=== PATIENT | female | born 1995 | race Caucasian/White ===

== ENCOUNTER → 2019-08-21 13:03 | Outpatient (BNVA) | payer MEDICAID, SELFPAY | PROVIDERS: Family Provider Registered Nurse; PCP Registered Nurse; Visit Provider Obstetrics & Gynecology Female Pelvic Medicine and Reconstructive Surgery | DX: Z36.89 Encounter for other specified antenatal screening (principal); Z36.87 Encounter for antenatal screening for uncertain dates | CPT/HCPCS: 76817; 81000; 84144; 84702; 85025; 87491; 87591 ==

== ENCOUNTER 2019-08-23 11:30 | Outpatient (CLI) | payer MEDICAID, SELFPAY | END 2019-08-23 11:31 | disposition home or self-care (01) | LOC: LAB 11:33 | PROVIDERS: Family Provider Registered Nurse; PCP Registered Nurse; Visit Provider Obstetrics & Gynecology Female Pelvic Medicine and Reconstructive Surgery | DX: Z32.01 Encounter for pregnancy test, result positive (principal) | CPT/HCPCS: 84702 ==

== ENCOUNTER → 2019-08-27 12:13 | Outpatient (BNVA) | payer MEDICAID, SELFPAY | PROVIDERS: Family Provider Registered Nurse; PCP Registered Nurse; Visit Provider Obstetrics & Gynecology Female Pelvic Medicine and Reconstructive Surgery | DX: Z32.01 Encounter for pregnancy test, result positive (principal) | CPT/HCPCS: 84702 ==

== ENCOUNTER → 2019-08-29 08:51 | Outpatient (BNVA) | payer MEDICAID, SELFPAY | PROVIDERS: Family Provider Registered Nurse; PCP Registered Nurse; Visit Provider Obstetrics & Gynecology Female Pelvic Medicine and Reconstructive Surgery | DX: Z34.90 Encounter for supervision of normal pregnancy, unspecified, unspecified trimester (principal) | CPT/HCPCS: 76817 ==

== ENCOUNTER 2019-09-09 22:00 | Emergency (ER) | payer MEDICAID, SELFPAY ==
[2019-09-09 22:07] VITALS: BP 147/86; PULSE 94; RESP 18; TEMP 36.7; O2SAT 99; BMI 33.6
[2019-09-09 22:25] LABS: Add Urine Microscopic? NO
[2019-09-09 22:27] LABS: Basophils % 0.2 %; Eosinophils % 0.3 %; Hematocrit 38.6 % (37.0-47.0); Lymphocytes # 3.9 10^3/uL (0.8-4.8); Lymphocytes % 35.4 %; Mean Corpuscular HGB Conc 31.1 g/dL (30.0-36.0); Mean Corpuscular Hemoglobin 24.4 pg (28.0-34.0); Mean Corpuscular Volume 78.5 fL (81-99); Mean Platelet Volume 10.7 fL (7.4-10.4); Monocytes # 0.8 10^3/uL (0.2-0.9); Neutrophils # 6.2 10^3/uL (1.8-7.7); Neutrophils % 56.7 %; Nucleated Red Blood Cells % 0 %; Platelet Count 246 10^3/cmm (130-400); Red Blood Count 4.92 10^6/uL (4.1-5.3); Red Cell Distribution Width 14.3 % (12.1-15.1)
[2019-09-09 22:30] LABS: Bilirubin Urine Neg (NEGATIVE); Blood Urine Neg (Negative); Glucose Urine UA Norm (Normal); Ketones Urine Negative (Negative); Leukocyte Esterase Urine Negative (Negative); Nitrate Urine Negative (Negative); Protein Urine Neg (Negative); Specific Gravity, Urine 1.005 (1.005-1.030); Urine Appearance Clear (CLEAR); Urine Color Straw (Yellow); Urobilinogen Urine Norm (Negative); pH Urine 6.5 (5-7)
--- NOTE | 2019-09-09 22:36 | ED_ITS ---
HPI - Abdominal Pain General: Chief Complaint: Abdominal Pain Stated Complaint: abd pain Time Seen by Provider: 09/09/19 22:09 Source: patient Mode of arrival: ambulatory Limitations: no limitations History of Present Illness: HPI narrative: Patient is a 24-year-old [id number] currently female here for complaints of left upper quadrant pain. Patient tells me pain has been present for approximately 2 months and is intermittent in nature. She has not been able to find any factors that seem to bring on her discomfort. She states certain positions especially lying on her left side seems to alleviate her pain. It does not seem to be affected by eating. She does have a history of GERD and takes medications for this but states the pain does not seem to coincide with this pain. Patient tells me she had the pain even before becoming however she contacted her OB physician and because her last ultrasound on 08/28 could not entirely rule out an ectopic he recommended patient come to the ER for a repeat ultrasound. Patient tells me she did have some left lower pelvic pain 3 days ago but none since. No vaginal bleeding/discharge/odor. MD elicited complaint: abdominal pain Pertinent past history: none Onset (ago): month(s) Pain Consistency: intermittent Location: LUQ Migration to: no migration Exacerbating factors: nothing Relieving factors: other (certain positions) Associated Symptoms: Reports nausea (started a few wks ago-reports due to ); Denies change in bowel habits, change in stool character, chills, constipation, diarrhea, dysuria, fever(s), hematuria, syncope and vomiting Review of Systems Const: Denies: fever or chills Card: Denies: chest pain, palpitations, irregular heart rhythm, edema, lightheadedness, syncope, pre-syncope, shortness of breath on exertion or shortness of breath when lying down Resp: Denies: shortness of breath, productive cough, non-productive cough, pain on inspiration, change in phlegm color, coughing up blood or chest congestion GI: Reports: abdominal pain and nausea (started a few wks ago-reports due to ); Denies: vomiting, diarrhea, constipation, change in bowel habits, painful bowel movements or change in stool character : Denies: flank pain, difficulty urinating, painful urination, urinary frequency, urinary urgency, urinary hesitancy, blood in urine, genital lesion, genital itching, vaginal odor, vaginal bleeding, vaginal discharge or pelvic pain (3 days ago-none since) Musc: Denies: neck pain or back pain Skin/Breast: Denies: rash Neuro: Denies: headache, numbness in extremities, weakness in extremities or changes in sensation PFSH ED PFSH: Social History Smoking and tobacco status: never smoked Quit status (tobacco): has quit using tobacco Year quit tobacco: 01/08/2019 Alcohol intake: former Female Reproductive History: : 5 Physical Exam Const: COMMON NORMALS: no apparent distress, oriented x3, no limitations and alert NUTRITIONAL APPEARANCE: overweight HENMT: COMMON NORMALS: normocephalic and head/scalp atraumatic HEAD & SCALP: normocephalic and atraumatic Resp: COMMON NORMALS: normal respiratory effort and clear to auscultation kalpesh aterally AUSCULTATION: clear to auscultation bilaterally Cardio: COMMON NORMALS: regular rate and regular rhythm RATE: regular rate RHYTHM: regular rhythm GI: COMMON NORMALS: normal to inspection, nondistended, normoactive bowel sounds, soft to palpation, no hepatosplenomegaly and no masses PALPATION: Yes soft, Yes tender (LUQ and overlying L lower anterior ribs) and Yes no hepatosplenomegaly : COMMON NORMALS: Yes no CVA tenderness BLADDER/KIDNEY EXAM: Yes no CVA tenderness Back/Pelvis: COMMON NORMALS: no CVA tenderness, thoracic and lumbar spine normal to inspection, no thoracic nor lumbar tenderness and thoraco-lumbar ROM normal Extremity: COMMON NORMALS: normal to inspection Neuro: COMMON NORMALS: oriented x3 SENSORIUM/ORIENTATION: Yes alert Skin: COMMON NORMALS: no rashes or lesions noted GENERAL SKIN EXAM: no rashes or lesions noted Course Vital Signs: Vital signs: Vital Signs Temperature 98.0 F 09/09/19 22:07 Pulse Rate 94 09/09/19 22:07 Respiratory Rate 18 09/09/19 22:07 Blood Pressure 147/86 09/09/19 22:07 Pulse Oximetry 99 09/09/19 22:07 MDM - Abdominal Pain MDM Narrative: Medical decision making narrative: Patient's main complaint today is her right upper quadrant pain that she has had intermittently for 2 months. Her labs and ultrasound of her abdomen today are benign. Obviously CT examination is contraindicated given her . I do not feel this is warranted anyway. She apparently had been told by her OB to come to the ED for ectopic rule out. Her hCG continues to rise steadily. Her ultrasound today showing a live IUP. Recommend she follow-up with women's health as scheduled. She may follow-up with her PCP regarding the left upper quadrant pain. Return to ED precautions given. Lab Data: Labs: Lab Results 09/09/19 09/09/19 09/09/19 Range/Units 22:20 22:20 22:21 WBC 11.0 H (4.0-10.0) 10^3/ uL RBC 4.92 (4.1-5.3) 10^6/u L Hgb 12.0 (11.5-15.3) g/dL Hct 38.6 (37.0-47.0) % MCV 78.5 L (81-99) fL MCH 24.4 L (28.0-34.0) pg MCHC 31.1 (30.0-36.0) g/dL RDW 14.3 (12.1-15.1) % Plt Count 246 (130-400) 10^3/c mm MPV 10.7 H (7.4-10.4) fL Neut % (Auto) 56.7 % Lymph % (Auto) 35.4 % Upson % (Auto) 7.0 % Eos % (Auto) 0.3 % Baso % (Auto) 0.2 % Neut # (Auto) 6.2 (1.8-7.7) 10^3/u L Lymph # (Auto) 3.9 (0.8-4.8) 10^3/u L Upson # (Auto) 0.8 (0.2-0.9) 10^3/u L Eos # (Auto) 0.0 (0.0-0.8) 10^3/u L Baso # (Auto) 0.0 (0.0-0.1) 10^3/u L Nucleated RBC % (a uto) 0 % Nucleated RBCs # 0.0 /100WBC Sodium (136-145) mmol/L Potassium (3.5-5.1) mmol/L Chloride (98-107) mmol/L Carbon Dioxide (22-29) mmol/L Anion Gap (5-19) BUN (6-20) mg/dL Creatinine (0.5-0.9) mg/dL GFR Calculation (90-130) mL/min Glucose (65-115) mg/dL Calculated Osmolal ity (285-295) mOsm/k g Calcium (8.5-10.5) mg/dL Total Bilirubin (0.15-1.2) mg/dL AST (0-32) U/L ALT (0-33) U/L Alkaline Phosphata se (35-105) IU/L Total Protein (6.6-8.7) g/dL Albumin (3.5-5.2) g/dL Globulin (1.3-4.6) g/dL Lipase (13-60) U/L Ser , Christiano i-Qnt mIU/mL Urine Color Straw (Yellow) Urine Appearance Clear (CLEAR) Urine pH 6.5 (5-7) Ur Specific Gravit y 1.005 (1.005-1.030) Urine Protein Neg (Negative) Urine Glucose (UA) Norm (Normal) Urine Ketones Negative (Negative) Urine Blood Neg (Negative) Urine Nitrate Negative (Negative) Urine Bilirubin Neg (NEGATIVE) Urine Urobilinogen Norm (Negative) mg/dL Ur Leukocyte [place]serrat ase Negative (Negative) Urine HCG, Qual Positive H (Negative) 09/09/19 09/09/19 Range/Units 22:21 22:21 WBC (4.0-10.0) 10^3/ uL RBC (4.1-5.3) 10^6/u L Hgb (11.5-15.3) g/dL Hct (37.0-47.0) % MCV (81-99) fL MCH (28.0-34.0) pg MCHC (30.0-36.0) g/dL RDW (12.1-15.1) % Plt Count (130-400) 10^3/c mm MPV (7.4-10.4) fL Neut % (Auto) % Lymph % (Auto) % Upson % (Auto) % Eos % (Auto) % Baso % (Auto) % Neut # (Auto) (1.8-7.7) 10^3/u L Lymph # (Auto) (0.8-4.8) 10^3/u L Upson # (Auto) (0.2-0.9) 10^3/u L Eos # (Auto) (0.0-0.8) 10^3/u L Baso # (Auto) (0.0-0.1) 10^3/u L Nucleated RBC % (a uto) % Nucleated RBCs # /100WBC Sodium 139 (136-145) mmol/L Potassium 3.4 L (3.5-5.1) mmol/L Chloride 104 (98-107) mmol/L Carbon Dioxide 24 (22-29) mmol/L Anion Gap 14.4 (5-19) BUN 6 (6-20) mg/dL Creatinine 0.7 (0.5-0.9) mg/dL GFR Calculation 103.7 (90-130) mL/min Glucose 85 (65-115) mg/dL Calculated Osmolal ity 283 L (285-295) mOsm/k g Calcium 9.7 (8.5-10.5) mg/dL Total Bilirubin 0.2 (0.15-1.2) mg/dL AST 11 (0-32) U/L ALT 12 (0-33) U/L Alkaline Phosphata se 67 (35-105) IU/L Total Protein 6.9 (6.6-8.7) g/dL Albumin 4.5 (3.5-5.2) g/dL Globulin 2.4 (1.3-4.6) g/dL Lipase 16 (13-60) U/L Ser , [place]nt 45070.00 mIU/mL Urine Color (Yellow) Urine Appearance (CLEAR) Urine pH (5-7) Ur Specific Gravit y (1.005-1.030) Urine Protein (Negative) Urine Glucose (UA) (Normal) Urine Ketones (Negative) Urine Blood (Negative) Urine Nitrate (Negative) Urine Bilirubin (NEGATIVE) Urine Urobilinogen (Negative) mg/dL Ur Leukocyte [place]err[place] ase (Negative) Urine HCG, Qual (Negative) Imaging Data ^: US abdomen: My impression: Bárbara/US tech: no acute abnormalities noted especially in LUQ US pelvis/OB: My impression: Bárbara/US tech: single live IUP with HR noted Discharge Plan Discharge Patient Disposition: Home, Self-Care Clinical Impression: Left upper quadrant abdominal pain of unknown etiology Qualifiers: Weeks of gestation: less than 8 weeks Qualified Code(s): Z3A.01 - Less than 8 weeks gestation of Condition: Stable Prescriptions: No Action omeprazole 40 mg capsule,delayed release(DR/EC) 40 mg PO DAILY RF: 0 albuterol sulfate [ProAir HFA] 90 mcg/actuation HFA aerosol inhaler 1 inh INHALATION QID Qty: 6.7 RF: 2 prenat.vits,mary,[id number] Tablet 1 tab PO DAILY Qty: 90 RF: 3 Discharge Orders: Discharge Order (Routine); Ordered 09/09/19 Ordered By: Sadaf Mast Referrals: Clair Fisher FNP [Primary Care Provider] - Patient Instructions: Abdominal Pain (ED) Activity Restrictions/Additional Instructions: You may continue to follow-up with Women's Health as scheduled. Return to the emergency department for any worsening pain, vaginal bleeding, cramping, or any other concerns you may have. Discharge Date/Time: 09/10/19 00:01 Coding Level of Care Code ED Sewer Pipe Layer for Chg Fwd Exam Comprehensive
[2019-09-09 22:40] LABS: Alanine Aminotransferase 12 U/L (0-33); Albumin Level 4.5 g/dL (3.5-5.2); Alkaline Phosphatase 67 IU/L (35-105); Anion Gap 14.4 (5-19); Aspartate Amino Transferase 11 U/L (0-32); Blood Urea Nitrogen 6 mg/dL (6-20); Calcium 9.7 mg/dL (8.5-10.5); Carbon Dioxide 24 mmol/L (22-29); Chloride 104 mmol/L (98-107); Globulin 2.4 g/dL (1.3-4.6); Glomerular Filtration Rate 103.7 mL/min (90-130); Glucose 85 mg/dL (65-115); Lipase 16 U/L (13-60); Osmolality Calculated 283 mOsm/kg (285-295); Potassium 3.4 mmol/L (3.5-5.1); Sodium 139 mmol/L (136-145); Total Bilirubin 0.2 mg/dL (0.15-1.2); Total Protein 6.9 g/dL (6.6-8.7)
--- NOTE | 2019-09-09 22:54 | US_ITS ---
WS: [id number] ULTRASOUND ABDOMEN LIMITED CLINICAL INFORMATION: LUQ pain COMPARISON: None. FINDINGS: Spleen Splenomegaly: None. Craniocaudal length: 12.9 cm. Left kidney: Normal. Hydronephrosis: None. Size: 10.3 cm x 5.6 cm x 4.6 cm. Abdominal aorta and IVC Visualized portions are normal. Ascites: None. US/US abdomen limited 16429 IMPRESSION: Normal left upper quadrant ultrasound
--- NOTE | 2019-09-09 22:54 | US_ITS ---
WS: [id number] ULTRASOUND EARLY TECHNIQUE: Transabdominal sonography of the pelvis was performed. CLINICAL INFORMATION: L lower pelvic pain; last US could not r/o ectopic LMP: Beta hCG: Unknown. COMPARISON: August 29, 2019 FINDINGS: UTERUS AND GESTATIONAL SAC Intrauterine gestations: Estimated gestational age: 6w6d Estimated date of delivery 04/28/20 Yolk sac: 0.4 cm. Black Jack rump length (CRL): 0.9 cm. heart motion: 129 BPM. Subchorionic hemorrhage: None. OVARIES Right ovary: Normal. Left ovary: Normal. FREE FLUID None. 2. Estimated gestational age: 6w6d 3. Ovaries are normal in appearance. No evidence of ectopic .. US/US OB limited 20029 IMPRESSION: 1. Single live intrauterine with pole.
[2019-09-10 00:01] VITALS: BP 136/68; PULSE 84; RESP 16; O2SAT 100
== END 2019-09-10 00:01 | disposition home or self-care (01) ==
PROVIDERS: Emergency Provider Physician Assistant; Family Provider Registered Nurse; PCP Registered Nurse
DX: O26.891 Other specified pregnancy related conditions, first trimester (principal); R10.12 Left upper quadrant pain; Z3A.01 Less than 8 weeks gestation of pregnancy; Z87.891 Personal history of nicotine dependence
CPT/HCPCS: 12345; 36415; 76705; 76815; 80053; 81003; 81025; 83690; 84702; 85025; 99282; 99283; A9270

== ENCOUNTER → 2019-10-04 08:22 | Outpatient (BNVA) | payer MEDICAID, SELFPAY | PROVIDERS: Family Provider Registered Nurse; PCP Registered Nurse; Visit Provider Obstetrics & Gynecology | DX: O09.899 Supervision of other high risk pregnancies, unspecified trimester (principal) | CPT/HCPCS: 80053; 80307; 81000; 85027; 86592; 86762; 86803; 86850; 86900; 87340; 87806 ==

== ENCOUNTER → 2019-10-18 14:03 | Outpatient (BNVA) | payer MEDICAID, SELFPAY | PROVIDERS: Family Provider Registered Nurse; PCP Registered Nurse; Visit Provider Obstetrics & Gynecology | DX: Z34.90 Encounter for supervision of normal pregnancy, unspecified, unspecified trimester (principal) | CPT/HCPCS: 81000 ==

== ENCOUNTER → 2019-11-14 08:17 | Outpatient (BNVA) | payer MEDICAID, SELFPAY | PROVIDERS: Family Provider Registered Nurse; PCP Registered Nurse; Visit Provider Nurse Practitioner Women's Health | DX: O34.211 Maternal care for low transverse scar from previous cesarean delivery (principal); O21.9 Vomiting of pregnancy, unspecified; J45.909 Unspecified asthma, uncomplicated; Z87.891 Personal history of nicotine dependence; O99.212 Obesity complicating pregnancy, second trimester; O99.612 Diseases of the digestive system complicating pregnancy, second trimester; K21.9 Gastro-esophageal reflux disease without esophagitis; Z3A.16 16 weeks gestation of pregnancy | CPT/HCPCS: 81000 ==

== ENCOUNTER → 2019-12-03 13:08 | Outpatient (BNVA) | payer MEDICAID, SELFPAY | PROVIDERS: Family Provider Registered Nurse; PCP Registered Nurse; Visit Provider Obstetrics & Gynecology | DX: O09.892 Supervision of other high risk pregnancies, second trimester (principal); K21.9 Gastro-esophageal reflux disease without esophagitis; J45.909 Unspecified asthma, uncomplicated; O34.211 Maternal care for low transverse scar from previous cesarean delivery; O26.892 Other specified pregnancy related conditions, second trimester; R51 Headache; O99.212 Obesity complicating pregnancy, second trimester; O21.9 Vomiting of pregnancy, unspecified; Z3A.19 19 weeks gestation of pregnancy | CPT/HCPCS: 81000 ==

== ENCOUNTER → 2019-12-12 09:36 | Outpatient (BNVA) | payer MEDICAID, SELFPAY | PROVIDERS: Family Provider Registered Nurse; PCP Registered Nurse; Visit Provider Obstetrics & Gynecology | DX: Z34.92 Encounter for supervision of normal pregnancy, unspecified, second trimester (principal) | CPT/HCPCS: 76805 ==

== ENCOUNTER → 2019-12-16 10:19 | Outpatient (BNVA) | payer MEDICAID, SELFPAY | PROVIDERS: Family Provider Registered Nurse; PCP Registered Nurse; Visit Provider Obstetrics & Gynecology | DX: Z34.90 Encounter for supervision of normal pregnancy, unspecified, unspecified trimester (principal) | CPT/HCPCS: 81000 ==

== ENCOUNTER → 2020-01-10 11:08 | Outpatient (BNVA) | payer MEDICAID, SELFPAY | PROVIDERS: Family Provider Registered Nurse; PCP Registered Nurse; Visit Provider Obstetrics & Gynecology | DX: O09.892 Supervision of other high risk pregnancies, second trimester (principal) | CPT/HCPCS: 81000 ==

== ENCOUNTER → 2020-02-07 11:09 | Outpatient (BNVA) | payer MEDICAID, SELFPAY | PROVIDERS: Family Provider Registered Nurse; PCP Registered Nurse; Visit Provider Nurse Practitioner Women's Health | DX: O09.892 Supervision of other high risk pregnancies, second trimester (principal); Z3A.00 Weeks of gestation of pregnancy not specified | CPT/HCPCS: 81000; 82950; 85027 ==

== ENCOUNTER → 2020-02-13 08:40 | Outpatient (BNVA) | payer MEDICAID, SELFPAY | PROVIDERS: Family Provider Registered Nurse; PCP Registered Nurse; Visit Provider Obstetrics & Gynecology | DX: O09.892 Supervision of other high risk pregnancies, second trimester (principal); O99.210 Obesity complicating pregnancy, unspecified trimester | CPT/HCPCS: 82951; 82952 ==

== ENCOUNTER → 2020-02-21 13:03 | Outpatient (BNVA) | payer MEDICAID, SELFPAY | PROVIDERS: Family Provider Registered Nurse; PCP Registered Nurse; Visit Provider Obstetrics & Gynecology | DX: Z34.90 Encounter for supervision of normal pregnancy, unspecified, unspecified trimester (principal) | CPT/HCPCS: 81000 ==

== ENCOUNTER → 2020-03-06 13:49 | Outpatient (BNVA) | payer MEDICAID, SELFPAY | PROVIDERS: Family Provider Registered Nurse; PCP Registered Nurse; Visit Provider Obstetrics & Gynecology | DX: Z34.90 Encounter for supervision of normal pregnancy, unspecified, unspecified trimester (principal) | CPT/HCPCS: 81000 ==

== ENCOUNTER → 2020-03-20 13:03 | Outpatient (BNVA) | payer MEDICAID, SELFPAY | PROVIDERS: Family Provider Registered Nurse; PCP Registered Nurse; Visit Provider Nurse Practitioner Women's Health | DX: Z34.90 Encounter for supervision of normal pregnancy, unspecified, unspecified trimester (principal) | CPT/HCPCS: 80053; 81000 ==

== ENCOUNTER → 2020-04-03 14:22 | Outpatient (BNVA) | payer MEDICAID, SELFPAY | PROVIDERS: Family Provider Registered Nurse; PCP Registered Nurse; Visit Provider Obstetrics & Gynecology | DX: O09.893 Supervision of other high risk pregnancies, third trimester (principal); Z3A.00 Weeks of gestation of pregnancy not specified | CPT/HCPCS: 81000; 87081; 87210 ==

== ENCOUNTER 2020-04-06 07:00 | Inpatient (IN) | payer MEDICAID, SELFPAY ==
[2020-04-06] VITALS (130 sets, daily range): BP systolic 0–157; BP diastolic 0–108; PULSE 74–181; RESP 16–20; TEMP 36.2–37.5; O2SAT 88–99; BMI 35.5
[2020-04-06 08:22] LABS: Basophils % 0.1 %; Eosinophils % 0.3 %; Hematocrit 35.3 % (37.0-47.0); Hemoglobin 11.4 g/dL (11.5-15.3); Lymphocytes # 2.4 10^3/uL (0.8-4.8); Lymphocytes % 21.6 %; Mean Corpuscular HGB Conc 32.3 g/dL (30.0-36.0); Mean Corpuscular Hemoglobin 26.1 pg (28.0-34.0); Mean Platelet Volume 12.6 fL (7.4-10.4); Monocytes # 0.8 10^3/uL (0.2-0.9); Monocytes % 6.9 %; Neutrophils # 7.76 10^3/uL (1.8-7.7); Neutrophils % 70.5 %; Nucleated Red Blood Cells % 0 %; Platelet Count 191 10^3/cmm (130-400); Red Blood Count 4.36 10^6/uL (4.1-5.3)
[2020-04-06 08:55] LABS: Nitrazine Paper, PH Positive
[2020-04-06] MEDS: dextrose 5%-lactated ringers 1,000 ML 125 ML IV ×2 (10:30→18:21)
[2020-04-06] MEDS: oxytocin 30 UNIT/500 ML BAG IV (10:30)
[2020-04-06] MEDS: lactated ringers 1,000 ML 999 ML IV ×2 (16:28→18:20)
--- NOTE | 2020-04-06 17:54 | ANES.PROC ---
Anesthesia Procedures Procedure/Date: 04/06/20 Epidural: Time Out Performed: Yes Consents Signed: Procedure Consent Consent: requested by attending/covering physician and risks and benefits reviewed Lumbar Level: L3-L4 Epidural position: sitting Epidural procedure: sterile prep of area, 1% lidocaine to numb the area (3 cc), 18 g needle (L3-l4 interspace ), negative for paresthesia passed, neg for paresthesia, test dose given (3 cc ), placed PCEA, no systemic response, sterile dressing applied and 0.2% Ropiavacaine @ mls/hr (13 mls/hr ) Additional Comments: to bedside at 17:30 epidural x 1 stick without difficulty. JENNIFER at 9 cm catheter threaded, test dose given. Patient states getting more comfortable on left side at this time. will reposition. 10 cc 2 % lido given and 100 mcg fentanyl. see OBYX system.
--- NOTE | 2020-04-06 18:49 | PC.NURSE ---
PT STATES NO PAIN JUST PRESSURE ON HER TAILBONE.
--- NOTE | 2020-04-06 18:57 | PC.NURSE ---
EPIDURAL 1648 TIME OUT DONE AND THEN DR. VALDERRAMA ATTEMPTED NUMEROUS TIMES TO GET EPIDURAL AND AFTER 30 MINUTES THIS GENERAL FOUNDRY WORKER CALLED MELECIO SCOTT CRNA TO COME AND ASSIST IF POSSIBLE AND SHE SAID TO SEND HER TO TRADE PLACED WITH HER AND SHE WOULD COME UP. 1730 MELECIO SCOTT CRNA HERE AND TIME OUT DONE AND PT STILL SITTING OF BED. 173 1ST STICK 174 TEST DOSE 1748 PUMP STARTED.
--- NOTE | 2020-04-06 21:08 | PC.NURSE ---
MD notified of patient having moderate fundal rubs. MD orders for Methergine to be given.
--- NOTE | 2020-04-06 21:15 | PC.NURSE ---
THIS NURSE TOOK OVER ON PT'S IT NEEDED LEVEL 2 CARE IN NURSERY; CARE WAS PASSED TO NAVDEEP SOTO AT 2102.
[2020-04-06] MEDS: miSOPROStol 200 mcg Tablet 800 MCG PR (21:16)
--- NOTE | 2020-04-06 21:16 | PC.NURSE ---
MD updated on patient blood pressures. MD orders not to give the Methergine and to give 800mcg of Cytotec Rectally instead.
--- NOTE | 2020-04-06 21:19 | P.PCNOB_ITS ---
Delivery Note: Date of delivery: April 06, 2020 Pre-delivery diagnoses: term labor. previous delivery. Post-delivery diagnoses: The same as above Procedure: spontaneous vaginal delivery Op report anesthesia: Epidural Delivering Physician: Andrews Goel M.D. Estimated blood loss (mL): 500 Findings: 25 year old, 5, Para 1-0-3-1, with a LMP of 09/09/2019 and an EDC of 04/28/2020, at 36+5 weeks. Delivery: The patient was noted to be complete and pushing, so was placed in the dorsal lithotomy position, prepped and draped in the usual sterile fashion for a vaginal delivery. Pt. Noted to have epidural anesthesia. The vertex was delivered in NOHEMY position. After delivery of the head we were unable to deliver the anterior shoulder by applying moderate downward motion. The diagnosis of shoulder dystocia was made. The patient and her family as well as the attending staff were informed. The nurses in the room were instructed to proceed with the Judy maneuver. The nurse was instructed to proceed with supra-pubic pressure; again delivery of the anterior shoulder was successful with McRobert maneuver over intact perineum in 20 seconds the patient was asked to push after anterior shoulder delivered, over an intact perineum. A nuchal cord was checked and one noted, and delivered through around head as necessary. The anterior shoulder delivered and the posterior shoulder followed. The remainder of the was easily delivered and the oropharynx and nasopharynx was bulb suctioned. The infant was noted to have spontaneous cry and spontaneous movement of all four extremities. At 2044 the patient delivered a viable at 36+6 week female weighing 3374 g with scores of 6 and 8 at one and five minutes, respectively. The cord was clamped x 2 and cut and noted to have 2 arteries and one vein. The infant was passed to the warmer where nursing personnel were in attendance. The placenta delivered intact spontaneously and the uterus was explored. 20 units of Pitocin was placed in the IV bag to firm the uterus. Examination of the cervix and vaginal vault did not reveal any lacerations. A vaginal pack was then placed. Examination of the perineum showed a second degree laceration noted. The laceration was repaired with 2-0 Vicryl in the normal fashion in a running non locking fashion to reapproximate the laceration in layers. The vaginal pack was then removed. The patient tolerated this procedure well, and recovered in L&D with her was transfer to nursery for observation. All sponge and needle counts were correct. Coding Level of Care Code Acute Electrician Crane Maintenance for Chg Dayanara
--- NOTE | 2020-04-06 21:38 | PC.NURSE ---
Dr. Goel at bedside to assess bleeding.
[2020-04-07] VITALS (18 sets, daily range): BP systolic 99–155; BP diastolic 58–85; PULSE 71–102; RESP 17–18; TEMP 36.6–36.9; O2SAT 98
[2020-04-07] MEDS: alum-mag-hydroxide-sime 30 mL UDC PO ×2 (01:35→10:05)
[2020-04-07] MEDS: HYDROcodone-acetaminophen 5-325 mg Tablet PO ×3 (01:35→17:13)
--- NOTE | 2020-04-07 03:12 | PC.NURSE ---
PT STARTED PUSHING AT 2004. AT 2043:45 BABY'S HEAD WAS OUT; BUT ANTERIOR SHOULDER WAS NOT DELIVERED. DR JALLOH ASKED FOR SUPRAPUBIC PRESSURE; IT WAS STARTED BY THIS RN AND AND TAKEN OVER BY NAVDEEP SOTO. BABY DELIVERED AT 2044:15 APPROXIMATELY ON SECONDS. CORD WAS CLAMPED AND CUT BY DR JALLOH AND BABY WAS TAKEN TO WARMER BEFORE 1 MINUTE OF LIFE OLD.
[2020-04-07] MEDS: prenatal vitamin Capsule 1 CAP PO (07:52)
[2020-04-07] MEDS: ibuprofen 800 mg tablet PO ×3 (07:52→20:37)
[2020-04-07] MEDS: docusate sodium 100 mg Capsule PO ×2 (07:53→17:09)
[2020-04-07 10:10] LABS: Hematocrit 31.7 % (37.0-47.0); Hemoglobin 9.9 g/dL (11.5-15.3); Mean Corpuscular HGB Conc 31.2 g/dL (30.0-36.0); Mean Corpuscular Hemoglobin 25.7 pg (28.0-34.0); Mean Corpuscular Volume 82.3 fL (81-99); Mean Platelet Volume 12.3 fL (7.4-10.4); Platelet Count 192 10^3/cmm (130-400); Red Blood Count 3.85 10^6/uL (4.1-5.3); Red Cell Distribution Width 13.2 % (12.1-15.1); White Blood Count 12.9 10^3/uL (4.0-10.0)
--- NOTE | 2020-04-07 12:21 | ANE.PACU2 ---
Inpatient post-anesthesia follow up: Airway intact: Yes Vital signs: Temperature 98.3 F Pulse Rate 86 Respiratory Rate 17 Blood Pressure 130/82 Pulse Oximetry 97 Oxygen Delivery Me thod Room Air Oxygen Flow Rate Fraction of Inspir ed Oxygen Hydration adequate: Yes Nausea and vomiting: No Pain level: 3 Mental status: Baseline Additional Comments: Up and walking, no residual numbnes and weakness in lower extremities (L leg sensation returned at 0400), no signs of infection at neuraxial site or attempt sites, moderate bruising present, tender to palpation, no headaches, urinating without lopez
[2020-04-07 17:20] LABS: Coronavirus Lab Test PTC Negative
--- NOTE | 2020-04-07 19:56 | PM.OBGYDC ---
Discharge Providers FLOOR HELPER Date of Admission: 04/06/20 07:00 Date of Discharge: 04/23/20 Attending Provider at Admission: Andrews Goel MD Attending Provider at Discharge: Andrews Goel MD Primary Care Provider: RAYMOND Xie Diagnoses at Discharge Discharge Diagnosis (1) Vaginal after , delivered, current hospitalization: Status: Acute Reason for Visit Reason for Visit: SROM AT HOME Hospital Course Hospital Course 25 year old, 5, Para 1-0-3-1, with a LMP of 09/09/2019 and an EDC of 04/28/2020 based on 6 week ultrasound, at 36 5/7 weeks. The patient came to labor and delivery with complaint of premature rupture of membranes. She was admitted to labor and delivery, and progressed to have a vaginal after section complicated by shoulder dystocia and one nuchal cord. She delivered a viable at 36+6 week female infant weighing 3374 g with scores of 6 and 8. She is afebrile hemodynamically stable. Tolerating diet well. Ambulating without difficulty. Information Peripartum Data: Infant Delivery Method: Physical Exam Narrative: EXAM NARRATIVE: GA; alert and oriented x 3 HEENT: normal Breasts: engorged Nipples - skin intact Lungs; clear to auscultation Heart: regular rhythm, no murmurs. Abd: Appropriately tender. BS+. Uterine fundus below umbilicus. No Fundal Tenderness. Perineum: normal lochia. Extremities: no edema, no cyanosis, no tenderness. Urinary Catheter Management^: Verdin: Cath Placed During This Visit: yes, but has since been removed by the nurse Reason for Continuing Indwelling Catheter: Decision to DC Catheter Urinary Catheter Date of Insertion: 04/06/20 Urinary Catheter Time of Insertion: 18:00 Date Urinary Catheter Removed: 04/06/20 Time Urinary Catheter Discontinued: 19:58 Discharge Data Data Completed and Pending: Labs from last 24 hours 04/07/20 04/06/20 09:45 07:40 WBC 12.9 H RBC 3.85 L Hgb 9.9 L Hct 31.7 L MCV 82.3 MCH 25.7 L MCHC 31.2 RDW 13.2 Plt Count 192 MPV 12.3 H Nasal/Oral COVID-1 9 PCR Negative Vitals: Last Vital Signs Temp 97.9 F 04/07/20 14:51 Pulse 92 04/07/20 15:30 Resp 18 04/07/20 15:30 BP 136/85 04/07/20 15:30 Pulse Ox 97 04/06/20 21:42 Discharge Plan Discharge Patient Disposition: Home Condition: Stable Prescriptions: New ibuprofen 800 mg tablet 800 mg PO TID PRN (Reason: pain) Qty: 60 RF: 0 acetaminophen 325 mg capsule 325 mg PO Q4H PRN (Reason: fever or pain) Qty: 60 RF: 0 Continued ferrous sulfate 325 mg (65 mg iron) tablet 325 mg PO BID RF: 0 albuterol sulfate [ProAir HFA] 90 mcg/actuation HFA aerosol inhaler 1 inh INHALATION QID PRN (Reason: Acid Reflux) RF: 0 prenat.vits,mary,[id number] Tablet 1 tab PO DAILY Qty: 90 RF: 3 omeprazole 20 mg capsule,delayed release(DR/EC) 20 mg PO DAILY RF: 0 No Action medroxyprogesterone [Depo-Provera] 150 mg/mL suspension 150 mg IM .every 3 months Qty: 1 RF: 0 Discharge Orders: Discharge Order (Routine); Ordered 04/07/20 Ordered By: Andrews Goel Referrals: Andrews Goel MD [Physician] - 2 weeks Discharge Diet: Regular Discharge Activity: Increase activity as tolerated Patient Instructions: Choosing Between Vaginal After or Repeat (GEN), Vaginal Delivery (DC), Vaginal Delivery (GEN) Activity Restrictions/Additional Instructions: 1. Please call [facility] clinic on next working day to make your post-operative appointment in 2 weeks. 2. Please stay home until you come back to the clinic on first post-operative check up. 3. Please follow instructions on your medications CAREFULLY. 4. If you have abdominal incision, do not cover it unless dressing is necessary because of drainage. OK to shower, but avoid bath. Leave steri-strips until they fall off. If they are still on one week after surgery, you may remove them. 5. If you had vaginal surgery, your doctor may instruct you to take SITZ bath. 6. Yellow, blood tinged odorous vaginal discharge is usually normal after hysterectomy or vaginal surgeries. 7. No sexual intercourse, tampons, or douches until you are completely released from the post-operative care. 8. Avoid constipation by eating right and maybe using some Metamucil or Milk of Magnesia. 9. All prescription refills are given during the working hours. Please do no wait till it runs out. Call the clinic at [phone] before your medication runs out. The clinic will get in touch with your doctor to prescribe medications if necessary. 10. Please remain within 40 mile radius from our hospital because emergencies do happen now and then during the post-operative period. 11. If you have stairs at home, take one step at a time slowly and minimize the number of trips. It helps to stay in one floor for the next few days. No lifting except what you can lift by one hand until you are released from the post-operative care. 12. Driving is discouraged until you are well healed. It may be 3-4 weeks before you feel strong enough to drive. You should be able to turn and look through the rear window without pain and you should be able to push the brake pedal very hard without pain before you drive. No fast rules, but SAFETY should be your primary concern. DO NOT drive if you are on sedating medications such as narcotics. 13. Call the clinic (during working hours) to make urgent appointment or go to the Emergency room, if any of the following occurs: i. Vaginal bleeding becomes heavy, more than a period. ii. Incision becomes red and sore, or drains pus. iii. Your temperature is over 100.4 or you have chill. iv. IV site becomes red and swollen (a little ``knot?? is usually OK) v. Persistent nausea and vomiting vi. Persistent constipation or diarrhea vii. Rash or allergic reaction to medications. Discharge Attestations FLOOR HELPER Time Spent in Discharge Care*: greater than 30 min Specific Discharge Activities: Specific discharge activities: educating patient and educating and/or supporting family/caregiver Coding Level of Care Code Acute Mandate Retail Service Merchandiser for Andreag Fwd Diagnoses Vaginal after , delivered, current hospitalization O34.219
== END 2020-04-07 20:42 | disposition home or self-care (01) | DRG 805 ==
PROVIDERS: Obstetrics & Gynecology; Admitting Provider Obstetrics & Gynecology; Family Provider Registered Nurse; PCP Registered Nurse; Visit Provider Obstetrics & Gynecology
DX: O42.013 Preterm premature rupture of membranes, onset of labor within 24 hours of rupture, third trimester (principal); O60.14X0 Preterm labor third trimester with preterm delivery third trimester, not applicable or unspecified; Z37.0 Single live birth; Z3A.36 36 weeks gestation of pregnancy; O65.5 Obstructed labor due to abnormality of maternal pelvic organs; O34.211 Maternal care for low transverse scar from previous cesarean delivery; N85.8 Other specified noninflammatory disorders of uterus; O69.81X0 Labor and delivery complicated by cord around neck, without compression, not applicable or unspecified; O62.3 Precipitate labor; O66.0 Obstructed labor due to shoulder dystocia
CPT/HCPCS: 12345; 36415; 51702; 59025; 83986; 85025; 85027; 87635; 96374; 99211; J2795; J3010

== ENCOUNTER 2020-04-13 19:18 | Emergency (ER) | payer MEDICAID, SELFPAY ==
[2020-04-13 19:21] VITALS: BP 149/96; PULSE 74; RESP 18; TEMP 36.5; O2SAT 98; BMI 34.4
[2020-04-13 21:12] LABS: Add Urine Microscopic? YES; Bilirubin Urine Neg (Negative); Blood Urine 3+ (Negative); Glucose Urine UA Norm (Normal); Ketones Urine Negative (Negative); Leukocyte Esterase Urine 1+ (Negative); Nitrate Urine Negative (Negative); Protein Urine Neg (Negative); Specific Gravity, Urine 1.005 (1.005-1.030); Urine Appearance Clear (CLEAR); Urine Color Straw (Yellow); Urobilinogen Urine Norm (Negative); pH Urine 6.5 (5-7)
--- NOTE | 2020-04-13 21:13 | USR_ITS ---
PROCEDURE INFORMATION: Exam: US Duplex Lower Extremity Veins, Bilateral Exam date and time: 04/13/2020 9:42 PM Age: 25 years old Clinical indication: Other: Chest pain post of child; Patient HX: Gave 1 week ago TECHNIQUE: Imaging protocol: Real-time duplex ultrasound of the extremities with 2-D frankel scale, color Doppler flow and spectral waveform analysis with image documentation. Complete exam focused on the bilateral lower extremity veins. COMPARISON: No relevant prior studies available. FINDINGS: Right deep veins: Unremarkable. The common femoral, femoral, proximal profunda femoral and popliteal veins are patent without thrombus. Normal Doppler waveforms. Normal compressibility and/or augmentation response. Right superficial veins: Saphenofemoral junction is patent without thrombus. Left deep veins: Unremarkable. The common femoral, femoral, proximal profunda femoral and popliteal veins are patent without thrombus. Normal Doppler waveforms. Normal compressibility and/or augmentation response. Left superficial veins: Saphenofemoral junction is patent without thrombus. Soft tissues: Unremarkable. US/CV venous duplex [facility] [id number] IMPRESSION: Negative for deep venous thrombosis.
--- NOTE | 2020-04-13 21:15 | USR_ITS ---
PROCEDURE INFORMATION: Exam: US Abdomen, Limited; Right Upper Quadrant Exam date and time: 04/13/2020 9:42 PM Age: 25 years old Clinical indication: Abdominal pain; Acute; Patient HX: of child 1 week ago. Today pain in abd and chest TECHNIQUE: Imaging protocol: US abdomen. Real time ultrasound with image documentation. Limited exam focused on the right upper quadrant. COMPARISON: US abdomen limited [id number] 09/09/2019 11:25 PM FINDINGS: Liver: Normal. No masses. Gallbladder: Normal. No gallstones. There is no gallbladder wall thickening. Common bile duct: Normal. No stones. No dilation. Pancreas: Visualized pancreas is unremarkable. Right kidney: Normal. No mass. No hydronephrosis. US/US gall bladder [id number] IMPRESSION: Negative for cholelithiasis or cholecystitis
[2020-04-13 21:16] VITALS: BP 158/89; PULSE 72; RESP 16; O2SAT 97
--- NOTE | 2020-04-13 21:16 | XR_ITS ---
WS: [id number] XR chest 1V portable [id number] REASON FOR EXAM: Chest pain FINDINGS: The chest is unchanged compared to 06/21/2015. The heart and mediastinum are within normal limits. No active pulmonary parenchymal or pleural disease. Bony thorax is intact. XR/XR chest 1V portable [id number] IMPRESSION: No acute chest abnormality.
--- NOTE | 2020-04-13 21:17 | ED_ITS ---
HPI - Abdominal Pain General: Chief Complaint: Abdominal Pain Stated Complaint: delievered 04/06, high bp, lower abd pain Time Seen by Provider: 04/13/20 21:07 Source: patient Mode of arrival: ambulatory Limitations: no limitations History of Present Illness: HPI narrative: Barbie is a nice 25-year-old female who comes in complaining of elevated blood pressure, abdominal pain, diarrhea and dysuria. Patient states she was at home when she got the symptoms of epigastric pain and lower abdominal pain. Patient currently denies any vaginal discharge or bleeding but did recently have a vaginal delivery. Patient was concerned about the abdominal pain and called her natural resource economist who told her to come to the hospital to get evaluated. Here the patient has no discomfort. Patient states overall she is feeling better but was concerned about her elevated blood pressure so she came to the hospital. She unaware of anything makes her symptoms better or worse. She denies any other complaints or concerns. Associated Symptoms: Reports diarrhea and nausea; Denies chills, coffee ground emesis, constipation, GI cramping, dysuria, fever(s), heartburn, hematochezia, hematuria, hematemesis, melena, syncope and vomiting Review of Systems Const: Denies: fever(s), chills, body aches, fatigue, malaise or diaphoresis Eyes: Denies: change in vision, blurry vision, photophobia, eye discomfort, eye discharge, eye redness or yellow eyes ENMT: Denies: throat pain, odynophagia, hoarseness, swelling of lips/tongue, ear or mastoid pain, ear discharge, change in hearing or nasal discharge Card: Denies: chest pain, palpitations, irregular heart rhythm, edema, lightheadedness, syncope, pre-syncope, dyspnea on exertion or orthopnea Resp: Denies: dyspnea, productive cough, non-productive cough, wheezing, hemoptysis or chest congestion GI: Reports: abdominal pain, nausea and diarrhea; Denies: vomiting, hematemesis, coffee ground emesis, heartburn, constipation, GI cramping, hematochezia or melena : Denies: flank pain, dysuria, urinary frequency, urinary urgency or hematuria Musc: Denies: neck pain, back pain, extremity pain, extremity swelling, joint pain, joint swelling, joint redness, joint warmth or joint stiffness Skin/Breast: Denies: rash, pruritus, erythema, skin pain or skin tenderness Neuro: Denies: headache(s), numbness in extremities, weakness in extremities, sensory changes, lack of coordination, difficulty walking, dizziness, vertigo, confusion, Slurred speech present or seizure-like activity Jose/Lymph: Denies: easy bruising, easy bleeding, petechiae, purpura or enlarged lymph nodes All/Imm: Denies: urticaria, throat swelling, tongue swelling, facial swelling or acute wheezing PFSH ED PFSH: Medical History (Updated 04/13/20 @ 23:11 by Alem Weeks) Asthma GERD (gastroesophageal reflux disease) Pelvic pain Surgical History History of section, low transverse (11/20/18) PLTCS. Dx: Nonreassuring FHT. Performed by Dr. Bustillo at [facility] [place]. History of tonsillectomy and adenoidectomy (~2013) Family History Father Hypertension Diabetes Grandmother Diabetes paternal Social History Smoking and tobacco status: former smoker Quit status (tobacco): has quit using tobacco Year quit tobacco: 11/2018 Former quit date comment: Started age 13. Most smoked 1 PPD. Alcohol intake: former Physical Exam Const: COMMON NORMALS: no acute distress, patient oriented x3, no limitations and alert GENERAL APPEARANCE: cooperative HENMT: COMMON NORMALS: normocephalic, atraumatic, external ears normal, EAC's normal and Normal external nose present HEAD & SCALP: normal to inspection, normocephalic and atraumatic FACE & SINUS: normal facial exam and face symmetric NOSE: Normal external nose present and Normal nares present EXTERNAL EAR: Yes external ears normal EXTERNAL AUDITORY CANAL: EAC's normal MOUTH: Normal oral and palatal mucosa present, lip normal and tongue normal Eye: COMMON NORMALS: Equal, round and reactive pupils present and conjunctivae normal GENERAL EYE: appearance normal, both eyes and all related structures ALIGNMENT: Yes alignment normal PERIORBITAL: periorbital findings normal EYELID: eyelids normal CONJUNCTIVA: Yes conjunctivae normal SCLERA: sclerae normal PUPIL: Yes Equal, round and reactive pupils present Neck/C-Spine: COMMON NORMALS: full ROM, no lymphadenopathy, supple, no meningeal signs and no JVD GENERAL: Yes normal visual inspection and Yes trachea midline Chest: COMMONS NORMALS: normal inspection of the chest and normal palpation of entire chest wall Resp: COMMON NORMALS: normal respiratory effort, No retractions, No use of accessory muscles and clear to auscultation bilaterally EFFORT & INSPECTION: Yes able to speak in complete sentences and Yes symmetric chest movement AUSCULTATION: clear to auscultation bilaterally, no crackles, no rales, no rhonchi and no wheezes Cardio: COMMON NORMALS: no JVD, regular rate, regular rhythm, S1 normal heart sound present and S2 normal heart sound present RATE: regular rate RHYTHM: regular rhythm HEART SOUNDS: S1 normal heart sound present, S2 normal heart sound present, no click, no gallops, no murmurs and no rubs GI: COMMON NORMALS: Soft to palpation and No hepatosplenomegaly present PALPATION: Yes Soft to palpation, No Tenderness to palpation present (GI), No Guarding due to palpation present (GI), No Rigid due to palpation, Yes No hepatosplenomegaly present, No Hernia present, No Palpable mass present and No Pulsatile mass present : COMMON NORMALS: Yes no CVA tenderness BLADDER/KIDNEY EXAM: Yes no CVA tenderness EXTERNAL FEMALE EXAM: No Hernia present Back/Pelvis: COMMON NORMALS: no CVA tenderness, thoracic and lumbar spine normal to inspection, no thoracic nor lumbar tenderness and thoraco-lumbar ROM normal Extremity: COMMON NORMALS: normal to inspection, full ROM, capillary refill normal, no joint enlargement, no clubbing, cyanosis or edema and no calf tenderness Neuro: COMMON NORMALS: patient oriented x3, CN's II-XII intact bilaterally, moves all extremities, no focal motor deficits and no sensory deficits noted SENSORIUM/ORIENTATION: Yes alert MENINGEAL SIGNS: Yes no meningeal signs SPEECH: speech normal Psych: COMMON NORMALS: mental status grossly normal, Normal thought process present, cooperative, normal affect, speech normal and activity/motor behavior normal SPEECH: Yes normal speech THOUGHT PROCESS: Normal thought process present Skin: COMMON NORMALS: no rashes or lesions noted, turgor normal, no jaundice, no petechiae and no mottling GENERAL SKIN EXAM: no rashes or lesions noted and turgor normal Course ED course: 2119 - Pt. is PERC rule negative. Vital Signs: Vital signs: Vital Signs Temperature 97.7 F 04/13/20 19:21 Pulse Rate 78 04/13/20 23:25 Respiratory Rate 16 04/13/20 23:25 Blood Pressure 139/83 04/13/20 23:25 Pulse Oximetry 97 04/13/20 23:25 MDM - Abdominal Pain MDM Narrative: Medical decision making narrative: Barbie is a very nice 25-year-old female who recently delivered a baby and had an uneventful . She had no problems with preeclampsia or toxemia during her or delivery. Tonight she was at home when she developed epigastric discomfort that radiated down to her lower abdomen and slightly up into her chest. She had some diarrhea that was nonbloody. Her vaginal bleeding has stopped since delivery but she has had some dysuria. The patient did not have an indication for a pelvic exam at this time without vaginal discharge or bleeding. Is possible that her symptoms are just GI related and have now subsided because the patient is feeling much better. Patient's blood pressure was slightly elevated but at this time with no pretibial edema, no protein in her urine and a blood pressure that is only in the 140s systolic I do not believe she has preeclampsia or cardiomyopathy. I reviewed the case in its entirety with Dr. Goel who agrees the patient can just be treated for UTI go home. He believes the patient likely just had a ga strointestinal illness that caused her blood pressure to elevate. He agreed to see the patient in his office this week for recheck. I reviewed all this with the patient and she is in agreement. She is feeling much better would like to go home. Patient had no true chest pain or shortness of breath. Ultrasound of legs were negative and she is PERC rule negative although with her recent I did want to add on the ultrasound just to be on the safe side. I did travel counselor the patient about developing appendicitis but as her pain is resolved I think it is unlikely to be this. Nonetheless I did warn her and advised her to return if her symptoms return or she has any new symptoms. Differential Diagnosis: Differential diagnosis abdominal pain: Likely abdominal pain, acute appendicitis, calculus of kidney, constipation, diverticulitis, gastroenteritis, pancreatitis and small bowel obstruction Lab Data: Attestation: I reviewed the patient's lab results. Labs: Lab Results 04/13/20 04/13/20 04/13/20 Range/Units 20:51 21:37 21:37 WBC 13.1 H (4.0-10.0) 10^3/ uL RBC 4.11 (4.1-5.3) 10^6/u L Hgb 10.6 L (11.5-15.3) g/dL Hct 34.3 L (37.0-47.0) % MCV 83.5 (81-99) fL MCH 25.8 L (28.0-34.0) pg MCHC 30.9 (30.0-36.0) g/dL RDW 13.6 (12.1-15.1) % Plt Count 271 (130-400) 10^3/c mm MPV 11.4 H (7.4-10.4) fL Neut % (Auto) 74.2 % Lymph % (Auto) 20.5 % [place] % (Auto) 4.1 % Eos % (Auto) 0.5 % Baso % (Auto) 0.2 % Neut # (Auto) 9.70 H (1.8-7.7) 10^3/u L Lymph # (Auto) 2.7 (0.8-4.8) 10^3/u L [place] # (Auto) 0.5 (0.2-0.9) 10^3/u L Eos # (Auto) 0.1 (0.0-0.8) 10^3/u L Baso # (Auto) 0.0 (0.0-0.1) 10^3/u L Nucleated RBC % (a uto) 0 % Nucleated RBCs # 0.0 /100WBC Sodium 142 (136-145) mmol/L Potassium 4.2 (3.5-5.1) mmol/L Chloride 106 (98-107) mmol/L Carbon Dioxide 23 (22-29) mmol/L Anion Gap 17.2 (5-19) BUN 11 (6-20) mg/dL Creatinine 0.7 (0.5-0.9) mg/dL GFR Calculation 102.8 (90-130) mL/min Glucose 97 (65-115) mg/dL Calculated Osmolal ity 293 (285-295) mOsm/k g Calcium 9.1 (8.5-10.5) mg/dL Total Bilirubin 0.2 (0.15-1.2) mg/dL AST 11 (0-32) U/L ALT 17 (0-33) U/L Alkaline Phosphata se 114 H (35-105) IU/L Troponin T Baselin e (0-10) ng/L Total Protein 6.1 L (6.6-8.7) g/dL Albumin 3.8 (3.5-5.2) g/dL Globulin 2.3 (1.3-4.6) g/dL Lipase 26 (13-60) U/L Urine Color Straw (Yellow) Urine Appearance Clear (CLEAR) Urine pH 6.5 (5-7) Ur Specific Gravit y 1.005 (1.005-1.030) Urine Protein Neg (Negative) Urine Glucose (UA) Norm (Normal) Urine Ketones Negative (Negative) Urine Blood 3+ H (Negative) Urine Nitrate Negative (Negative) Urine Bilirubin Neg (Negative) Urine Urobilinogen Norm (Negative) mg/dL Ur Leukocyte [place] ase 1+ H (Negative) Urine RBC 15-25 H (0-2) /hpf Urine WBC 10-15 H (0-5) /hpf Ur Squamous Epith Cells 0-4 H (0-5) /hpf Amorphous Sediment Not Reportable Urine Bacteria 2+ H (NONE) /hpf 11/23/20 Range/Units 21:37 WBC (4.0-10.0) 10^3/ uL RBC (4.1-5.3) 10^6/u L Hgb (11.5-15.3) g/dL Hct (37.0-47.0) % MCV (81-99) fL MCH (28.0-34.0) pg MCHC (30.0-36.0) g/dL RDW (12.1-15.1) % Plt Count (130-400) 10^3/c mm MPV (7.4-10.4) fL Neut % (Auto) % Lymph % (Auto) % [place] % (Auto) % Eos % (Auto) % Baso % (Auto) % Neut # (Auto) (1.8-7.7) 10^3/u L Lymph # (Auto) (0.8-4.8) 10^3/u L [place] # (Auto) (0.2-0.9) 10^3/u L Eos # (Auto) (0.0-0.8) 10^3/u L Baso # (Auto) (0.0-0.1) 10^3/u L Nucleated RBC % (a uto) % Nucleated RBCs # /100WBC Sodium (136-145) mmol/L Potassium (3.5-5.1) mmol/L Chloride (98-107) mmol/L Carbon Dioxide (22-29) mmol/L Anion Gap (5-19) BUN (6-20) mg/dL Creatinine (0.5-0.9) mg/dL GFR Calculation (90-130) mL/min Glucose (65-115) mg/dL Calculated Osmolal ity (285-295) mOsm/k g Calcium (8.5-10.5) mg/dL Total Bilirubin (0.15-1.2) mg/dL AST (0-32) U/L ALT (0-33) U/L Alkaline Phosphata se (35-105) IU/L Troponin T Baselin e 6 (0-10) ng/L Total Protein (6.6-8.7) g/dL Albumin (3.5-5.2) g/dL Globulin (1.3-4.6) g/dL Lipase (13-60) U/L Urine Color (Yellow) Urine Appearance (CLEAR) Urine pH (5-7) Ur Specific Gravit y (1.005-1.030) Urine Protein (Negative) Urine Glucose (UA) (Normal) Urine Ketones (Negative) Urine Blood (Negative) Urine Nitrate (Negative) Urine Bilirubin (Negative) Urine Urobilinogen (Negative) mg/dL Ur Leukocyte [place] ase (Negative) Urine RBC (0-2) /hpf Urine WBC (0-5) /hpf Ur Squamous Epith Cells (0-5) /hpf Amorphous Sediment Urine Bacteria (NONE) /hpf Imaging Data ^: CXR: Attestation: I personally reviewed and interpreted this imaging study as follows: My impression: No acute cardiopulmonary findings. US Vascular: My impression: Ultrasound venous duplex bilateral lower extremities -negative for DVT US Gallbladder: My impression: Tech interpretation -normal wall thickness. No gallstones. No pericholecystic fluid. Normal common bile duct. No acute findings. Discharge Plan Discharge Patient Disposition: Home Clinical Impression: Abdominal pain Qualifiers: Abdominal location: upper abdomen, unspecified Qualified Code(s): R10.10 - Upper abdominal pain, unspecified Diarrhea Qualifiers: Diarrhea type: unspecified type Qualified Code(s): R19.7 - Diarrhea, unspecifi ed UTI (urinary tract infection) Qualifiers: Urinary tract infection type: acute cystitis Hematuria presence: without hematuria Qualified Code(s): N30.00 - Acute cystitis without hematuria Condition: Stable Prescriptions: New Macrobid 100 mg capsule 100 mg PO BID 7 Days Qty: 14 RF: 0 No Action ferrous sulfate 325 mg (65 mg iron) tablet 325 mg PO BID RF: 0 albuterol sulfate [ProAir HFA] 90 mcg/actuation HFA aerosol inhaler 1 inh INHALATION QID PRN (Reason: Acid Reflux) RF: 0 prenat.vits,mary,jcc-obat-wplml Tablet 1 tab PO DAILY Qty: 90 RF: 3 omeprazole 20 mg capsule,delayed release(DR/EC) 20 mg PO DAILY RF: 0 ibuprofen 800 mg tablet 800 mg PO TID PRN (Reason: pain) Qty: 60 RF: 0 acetaminophen 325 mg capsule 325 mg PO Q4H PRN (Reason: fever or pain) Qty: 60 RF: 0 Discharge Orders: Discharge Order (Routine); Ordered 04/13/20 Ordered By: Alem Weeks Referrals: Andrews Goel MD [Physician] - 1-3 days Clair Fisher FNP [Primary Care Provider] - Discharge Diet: Advance as tolerated Discharge Activity: Increase activity as tolerated Patient Instructions: Urinary Tract Infection in Women (ED), Abdominal Pain (ED) Activity Restrictions/Additional Instructions: Please return to the ER immediately for any of the signs or symptoms listed on your discharge instruction sheets, worsening/changing of your symptoms, you are not getting better as quickly as expected, or for ANY other cause or concerns. If your pain returns, moves to the inferior portion of her abdomen, he develop the return of vaginal discharge or bleeding, or you have any other concerns please return to the ER immediately for recheck. Developing appendicitis cannot be ruled out as a cause of your symptoms so please return to the ER immediately for recheck if your symptoms return. Coding Level of Care Code ED Swatcher for Jovanna Fwd Exam Comprehensive
[2020-04-13 21:22] LABS: RBC Urine 15-25 /hpf (0-2); Squamous Epithelial Cell Urine 0-4 /hpf (0-5)
[2020-04-13 21:23] LABS: Add Urine Culture? Yes; Bacteria Urine 2+ /hpf
[2020-04-13] MEDS: ondansetron 2 mg/ML SDV 2 mL 4 MG IVP (21:36)
[2020-04-13 21:38] VITALS: RESP 16; O2SAT 98
[2020-04-13] MEDS: morphine 4 mg/mL SDV 1 mL IVP (21:38)
[2020-04-13] MEDS: sodium chloride 0.9% 1,000 ML 100 ML IV (21:39)
[2020-04-13 22:00] VITALS: BP 153/95; PULSE 66; RESP 18; O2SAT 96
[2020-04-13 22:02] LABS: Basophils % 0.2 %; Eosinophils # 0.1 10^3/uL (0.0-0.8); Eosinophils % 0.5 %; Hematocrit 34.3 % (37.0-47.0); Hemoglobin 10.6 g/dL (11.5-15.3); Lymphocytes # 2.7 10^3/uL (0.8-4.8); Lymphocytes % 20.5 %; Mean Corpuscular HGB Conc 30.9 g/dL (30.0-36.0); Mean Corpuscular Hemoglobin 25.8 pg (28.0-34.0); Mean Corpuscular Volume 83.5 fL (81-99); Mean Platelet Volume 11.4 fL (7.4-10.4); Monocytes # 0.5 10^3/uL (0.2-0.9); Monocytes % 4.1 %; Neutrophils % 74.2 %; Nucleated Red Blood Cells % 0 %; Platelet Count 271 10^3/cmm (130-400); Red Blood Count 4.11 10^6/uL (4.1-5.3); Red Cell Distribution Width 13.6 % (12.1-15.1); White Blood Count 13.1 10^3/uL (4.0-10.0)
[2020-04-13 22:24] LABS: Alanine Aminotransferase 17 U/L (0-33); Albumin Level 3.8 g/dL (3.5-5.2); Alkaline Phosphatase 114 IU/L (35-105); Anion Gap 17.2 (5-19); Aspartate Amino Transferase 11 U/L (0-32); Blood Urea Nitrogen 11 mg/dL (6-20); Calcium 9.1 mg/dL (8.5-10.5); Carbon Dioxide 23 mmol/L (22-29); Chloride 106 mmol/L (98-107); Globulin 2.3 g/dL (1.3-4.6); Glomerular Filtration Rate 102.8 mL/min (90-130); Glucose 97 mg/dL (65-115); Lipase 26 U/L (13-60); Osmolality Calculated 293 mOsm/kg (285-295); Potassium 4.2 mmol/L (3.5-5.1); Sodium 142 mmol/L (136-145); Total Bilirubin 0.2 mg/dL (0.15-1.2); Total Protein 6.1 g/dL (6.6-8.7)
[2020-04-13 22:28] LABS: Troponin(5th) Baseline 6 ng/L (0-10)
[2020-04-13] MEDS: cefTRIAXone 1,000 MG in sodium chloride 0.9% (plus) 50 ML 100 MG IV (22:49)
[2020-04-13 22:50] VITALS: BP 146/95; PULSE 70; RESP 16; O2SAT 96
[2020-04-13 23:25] VITALS: BP 139/83; PULSE 78; RESP 16; O2SAT 97
[2020-04-13] MEDS: nitrofurantoin SR (BID) 100 mg Capsule PO (23:25)
== END 2020-04-13 23:26 | disposition home or self-care (01) ==
PROVIDERS: Emergency Medicine; Emergency Provider Emergency Medicine; PCP Registered Nurse
DX: N30.00 Acute cystitis without hematuria (principal); R19.7 Diarrhea, unspecified; Z87.891 Personal history of nicotine dependence
CPT/HCPCS: 12345; 71045; 76705; 80053; 81001; 83690; 84484; 85025; 87086; 93970; 96361; 96365; 96375; 99281; 99283; J0696; J2270; J2405; J7030

== ENCOUNTER → 2020-04-14 15:15 | Outpatient (BNVA) | payer MEDICAID, SELFPAY | PROVIDERS: PCP Registered Nurse; Visit Provider Obstetrics & Gynecology | DX: I10 Essential (primary) hypertension (principal) | CPT/HCPCS: 80053; 84156; 84550 ==

== ENCOUNTER → 2020-05-05 14:12 | Outpatient (BNVA) | payer MEDICAID, SELFPAY | PROVIDERS: PCP Registered Nurse; Visit Provider Registered Nurse | DX: R30.0 Dysuria (principal) | CPT/HCPCS: 81000 ==

== ENCOUNTER 2020-08-07 08:33 | Outpatient (CLI) | payer BC, MEDICAID, SELFPAY ==
[2020-08-07 10:14] LABS: Free T4 Free Thyroxine 1.27 ng/dL (0.82-1.77); Thyroid Stimulating Hormone 0.95 uIU/mL (0.27-4.20)
[2020-08-12 09:42] LABS: Plasma Renin Activity LC/MS/MS 2.66 ng/mL/h (0.25-5.82)
== END 2020-08-07 08:34 | disposition home or self-care (01) ==
LOC: RAD 08:46
PROVIDERS: PCP Registered Nurse; Visit Provider Internal Medicine
DX: I10 Essential (primary) hypertension (principal)
CPT/HCPCS: 82088; 84244; 84439; 84443

== ENCOUNTER → 2021-03-09 10:59 | Outpatient (BNVA) | payer BC, MEDICAID, SELFPAY | PROVIDERS: PCP Registered Nurse; Visit Provider Registered Nurse | DX: J02.9 Acute pharyngitis, unspecified (principal) | CPT/HCPCS: 87880 ==

== ENCOUNTER → 2021-03-15 08:50 | Outpatient (BNVA) | payer BC, MEDICAID, SELFPAY | PROVIDERS: PCP Registered Nurse; Visit Provider Registered Nurse | DX: Z30.09 Encounter for other general counseling and advice on contraception (principal) | CPT/HCPCS: 81025 ==

== ENCOUNTER → 2021-07-26 14:06 | Outpatient (BNVA) | payer BC, MEDICAID, SELFPAY | PROVIDERS: PCP Registered Nurse; Visit Provider Obstetrics & Gynecology | DX: O09.91 Supervision of high risk pregnancy, unspecified, first trimester (principal); N92.6 Irregular menstruation, unspecified | CPT/HCPCS: 81000; 81025 ==

== ENCOUNTER → 2021-07-27 12:44 | Outpatient (BNVA) | payer BC, MEDICAID, SELFPAY | PROVIDERS: PCP Registered Nurse; Visit Provider Obstetrics & Gynecology | DX: Z34.01 Encounter for supervision of normal first pregnancy, first trimester (principal) | CPT/HCPCS: 80307; 85027; 86592; 86762; 86803; 86850; 86900; 87086; 87340 ==

== ENCOUNTER 2021-08-08 21:53 | Emergency (ER) | payer BC, MEDICAID, SELFPAY ==
[2021-08-08 22:05] VITALS: BP 135/94; PULSE 88; RESP 18; TEMP 36.9; O2SAT 100; BMI 38.6
--- NOTE | 2021-08-08 23:22 | USR_ITS ---
PROCEDURE INFORMATION: Exam: US First Trimester, Transabdominal Exam date and time: 08/08/2021 11:37 PM Age: 26 years old Clinical indication: complicated by abdominal or pelvic pain; Other: Pelvic cramp; Gestational age or lmp: ? 5w5d; Additional info: Miscrriage TECHNIQUE: Imaging protocol: Real-time transabdominal obstetrical ultrasound of the maternal pelvis and a first trimester , less than 14 weeks 0 days, with image documentation. COMPARISON: US OB <= 14wk fetus add [facility] 07/27/2021 10:53 AM FINDINGS: Gestation: Mean gestational sac diameter 0.8 cm with EGA 5 weeks 5 days. No yolk sac or pole at this time. Early versus blighted ovum. Previously there was thought to be a yolk sac and collapsed gestational sac. Correlation with the trend in quantitative hCG is recommended. MATERNAL: Uterus: 7.5 x 4.5 by 6.1 cm uterus with estimated volume 107 cc. Cervix: The cervix is poorly visualized and not measured. Right ovary/adnexa: 3.0 x 1.7 x 1.6 cm right ovary with estimated volume 4.3 cc. Left ovary/adnexa: 1.9 x 1.7 x 1.3 cm left ovary with estimated volume 2.2 cc. Intraperitoneal space: No intraperitoneal free fluid. US/US OB <= 14 weeks fetus [id number] IMPRESSION: 1. Mean gestational sac diameter 0.8 cm with EGA 5 weeks 5 days. 2. No yolk sac or pole at this time. Early versus blighted ovum. 3. Previously there was thought to be a yolk sac and collapsed gestational sac. 4. Correlation with the trend in serial quantitative HCGs is recommended.
--- NOTE | 2021-08-08 23:23 | ED_ITS ---
HPI - General: Chief complaint: Vaginal Bleeding Stated complaint: 10 weeks preg, cramping, bleeding Time Seen by Provider: 08/08/21 23:18 Source: patient Mode of arrival: ambulatory Limitations: no limitations History of Present Illness: 26-year-old female who is roughly 10 weeks states that over the last day she been having some intermittent bleeding denies passing any blood clots. States she had some lower abdominal cramping she rates a 2 out of 10 she has had 2 live births but is also had multiple miscarriages in the past. Denies any vomiting she did have an ultrasound at 6 weeks that showed no IUP. Associated symptoms: Reports abdominal pain; Deny headache(s) Review of Systems Const: Denies: fever(s), chills, body aches or change in appetite Eyes: Denies: blurry vision or eye discomfort ENMT: Denies: throat pain or dental pain Card: Denies: chest pain Resp: Denies: dyspnea GI: Reports: abdominal pain : Reports: vaginal bleeding Musc: Denies: neck pain or back pain Skin/Breast: Denies: rash Neuro: Denies: headache(s) Psych: Denies: depression Jose/Lymph: Denies: easy bruising All/Imm: Denies: urticaria PFSH ED PFSH: Medical History Asthma GERD (gastroesophageal reflux disease) Pelvic pain Surgical History History of section, low transverse (11/20/18) PLTCS. Dx: Nonreassuring FHT. [place] [facility] [place] History of tonsillectomy and adenoidectomy (~2013) Family History (Updated 07/26/21 @ 13:17 by Linda Philip RN) Father Hypertension Diabetes Hyperlipidemia Grandmother Diabetes paternal Denies family history of Colon cancer Ovarian cancer Clotting disorder Heart disease Breast cancer Anesthesia complication Bleeding disorder Uterine cancer Thyroid condition Stroke Social History Smoking and tobacco status: former smoker Quit status (tobacco): has quit using tobacco Year quit tobacco: 11/2018 Former quit date comment: Started age 13. Most smoked 1 PPD. Alcohol intake: former Physical Exam Const: COMMON NORMALS: no acute distress, patient oriented x3 and healthy appearing HENMT: COMMON NORMALS: normocephalic and atraumatic HEAD & SCALP: normocephalic and atraumatic Eye: COMMON NORMALS: Equal, round and reactive pupils present and EOMs intact bilaterally PUPIL: Yes Equal, round and reactive pupils present Neck/C-Spine: COMMON NORMALS: full ROM and supple Chest: COMMONS NORMALS: normal inspection of the chest and normal palpation of entire chest wall Resp: COMMON NORMALS: normal respiratory effort, No retractions, No use of accessory muscles and clear to auscultation bilaterally AUSCULTATION: clear to auscultation bilaterally Cardio: COMMON NORMALS: regular rate, regular rhythm and No murmurs present (Cardio) RATE: regular rate RHYTHM: regular rhythm GI: COMMON NORMALS: Normal to inspection, nondistended, normoactive bowel sounds present, Soft to palpation, non-tender and no masses PALPATION: Yes Soft to palpation Extremity: COMMON NORMALS: normal to inspection and full ROM Neuro: COMMON NORMALS: patient oriented x3, moves all extremities and no focal motor deficits Psych: COMMON NORMALS: mental status grossly normal, Normal thought process present and cooperative THOUGHT PROCESS: Normal thought process present Skin: COMMON NORMALS: no rashes or lesions noted and no wounds GENERAL SKIN EXAM: no rashes or lesions noted Course Vital Signs: Vital signs: Vital Signs Temperature 98.4 F 08/08/21 22:05 Pulse Rate 86 08/09/21 00:10 Respiratory Rate 14 08/09/21 00:10 Blood Pressure 142/75 08/09/21 00:10 Pulse Oximetry 99 08/09/21 00:10 MDM - OB/Uterine Contractions Medical Decision Making Patient presents here with a likely miscarriage she is not bleeding heavily here ultrasound showed no IUP at this time. Patient is likely in the process of miscarrying pain here is improved. She is stable for discharge she is to follow-up her OB Dr. Goel in 1 to 2 days return if worsening she understands agrees to plan. Discharge Plan Discharge Patient Disposition: Home Clinical Impression: Threatened miscarriage Condition: Stable Prescriptions: No Action albuterol sulfate 90 mcg/actuation HFA aerosol inhaler See Rx Instructions .ROUTE .COMPLEX PRN0RF Dose Instruction: INHALE 1 PUFF BY MOUTH FOUR TIMES DAILY Rx Instructions: INHALE 1 PUFF BY MOUTH FOUR TIMES DAILY PRN; pantoprazole 40 mg tablet,delayed release (DR/EC) See Rx Instructions .ROUTE .COMPLEX Qty: 90 0RF Dose Instruction: TAKE 1 TABLET BY MOUTH DAILY Rx Instructions: TAKE 1 TABLET BY MOUTH DAILY Discharge Orders: Discharge ED (Routine); Ordered 08/09/21 Ordered By: Chino Corbin Referrals: Clair Fisher FNP [Primary Care Provider] - Discharge Diet: Advance as tolerated Discharge Activity: Resume usual activity Patient Instructions: Threatened Miscarriage (ED) Coding Level of Care Code ED Windows Consultant for Chg Fwd Exam Comprehensive
[2021-08-09 00:10] VITALS: BP 142/75; PULSE 86; RESP 14; O2SAT 99
[2021-08-09 00:44] VITALS: BP 130/78; PULSE 82; RESP 15; O2SAT 98
[2021-08-09 01:08] LABS: Basophils % 0.3 %; Eosinophils # 0.1 10^3/uL (0.0-0.8); Eosinophils % 1.8 %; Hematocrit 35.7 % (37.0-47.0); Hemoglobin 10.7 g/dL (11.5-15.3); Lymphocytes # 2.5 10^3/uL (0.8-4.8); Lymphocytes % 38.3 %; Mean Corpuscular Hemoglobin 22.5 pg (28.0-34.0); Mean Corpuscular Volume 75.2 fl (81-99); Mean Platelet Volume 10.8 fL (7.4-10.4); Monocytes # 0.7 10^3/uL (0.2-0.9); Monocytes % 10.9 %; Neutrophils # 3.19 10^3/uL (1.8-7.7); Neutrophils % 48.4 %; Nucleated Red Blood Cells % 0 %; Platelet Count 251 10^3/cmm (130-400); Red Blood Count 4.75 10^6/uL (4.1-5.3); Red Cell Distribution Width 15.9 % (12.1-15.1); White Blood Count 6.6 10^3/uL (4.0-10.0)
== END 2021-08-09 00:46 | disposition home or self-care (01) ==
PROVIDERS: Emergency Provider Emergency Medicine; PCP Registered Nurse
DX: O20.0 Threatened abortion (principal); Z3A.10 10 weeks gestation of pregnancy; Z87.891 Personal history of nicotine dependence
CPT/HCPCS: 76801; 84702; 85025; 99283

== ENCOUNTER 2021-08-10 | Outpatient (CLI) | payer BC, MEDICAID, SELFPAY | END 2021-08-10 23:59 | disposition home or self-care (01) | LOC: RAD 12-21 11:59 | PROVIDERS: PCP Registered Nurse; Visit Provider Obstetrics & Gynecology | DX: O36.80X0 Pregnancy with inconclusive fetal viability, not applicable or unspecified (principal) | CPT/HCPCS: 84702 ==

== ENCOUNTER → 2021-08-13 14:00 | Outpatient (BNVA) | payer BC, MEDICAID, SELFPAY | PROVIDERS: PCP Registered Nurse; Visit Provider Obstetrics & Gynecology | DX: O36.80X0 Pregnancy with inconclusive fetal viability, not applicable or unspecified (principal); O20.0 Threatened abortion | CPT/HCPCS: 84702 ==

== ENCOUNTER → 2021-08-20 13:07 | Outpatient (BNVA) | payer BC, MEDICAID, SELFPAY | PROVIDERS: PCP Registered Nurse; Visit Provider Obstetrics & Gynecology | DX: O36.80X0 Pregnancy with inconclusive fetal viability, not applicable or unspecified (principal); Z3A.00 Weeks of gestation of pregnancy not specified | CPT/HCPCS: 84702 ==

== ENCOUNTER 2021-09-06 15:07 | Outpatient (CLI) | payer BC, MEDICAID, SELFPAY | END 2021-09-06 15:08 | disposition home or self-care (01) | LOC: LAB 15:09 | PROVIDERS: PCP Registered Nurse; Visit Provider Obstetrics & Gynecology | DX: Z32.01 Encounter for pregnancy test, result positive (principal) | CPT/HCPCS: 84702 ==

== ENCOUNTER → 2021-12-01 10:24 | Outpatient (BNVA) | payer BC, MEDICAID, SELFPAY | PROVIDERS: PCP Registered Nurse; Visit Provider Nurse Practitioner Women's Health | DX: N92.6 Irregular menstruation, unspecified (principal); Z32.00 Encounter for pregnancy test, result unknown; N89.8 Other specified noninflammatory disorders of vagina; B37.3 Candidiasis of vulva and vagina; B37.9 Candidiasis, unspecified | CPT/HCPCS: 81025; 84702 ==

== ENCOUNTER → 2021-12-03 10:12 | Outpatient (BNVA) | payer BC, MEDICAID, SELFPAY | PROVIDERS: PCP Registered Nurse; Visit Provider Obstetrics & Gynecology | DX: Z32.00 Encounter for pregnancy test, result unknown (principal) | CPT/HCPCS: 84702 ==

== ENCOUNTER → 2021-12-08 12:33 | Outpatient (BNVA) | payer BC, MEDICAID, SELFPAY | PROVIDERS: PCP Registered Nurse; Visit Provider Obstetrics & Gynecology | DX: N92.6 Irregular menstruation, unspecified (principal) | CPT/HCPCS: 84702 ==

== ENCOUNTER 2022-01-12 11:54 | Outpatient (CLI) | payer BC, MEDICAID, SELFPAY ==
--- NOTE | 2022-01-12 12:00 | US_ITS ---
WS: [id number] EARLY OBSTETRICAL ULTRASOUND (<14 WEEKS). HISTORY: Early OB, follow-up 12/23/2021 COMPARISON: 12/23/2021 Single intrauterine gestational sac is identified. Cardiac activity at 171 BPM. Randall-rump length vickie sures 2.9 cm which corresponds to a gestation of 9 weeks 5 days.. Normal-appearing yolk sac and amnio n demonstrated. Previously described subchorionic hemorrhage is noted completely resolved. There is a very small focus of resolving hemorrhage remaining with a maximum diameter of 5 mm. No free fluid. LEFT ovary is not identified. RIGHT ovary is negative. Cervix is closed. US/ OB transvaginal [id number] IMPRESSION: 1. Single intrauterine gestation of 9 weeks 5 days with an EDC of 08/12/2022. A ppropriate growth since the prior study. 2. Nearly completely resolved very small subchorionic hemorrhage.
== END 2022-01-12 11:55 | disposition home or self-care (01) ==
LOC: RAD 11:55
PROVIDERS: PCP Registered Nurse; Visit Provider Obstetrics & Gynecology
DX: O41.8X90 Other specified disorders of amniotic fluid and membranes, unspecified trimester, not applicable or unspecified (principal); O20.9 Hemorrhage in early pregnancy, unspecified
CPT/HCPCS: 76817

== ENCOUNTER → 2022-01-20 10:28 | Outpatient (BNVA) | payer BC, MEDICAID, SELFPAY | PROVIDERS: PCP Registered Nurse; Visit Provider Obstetrics & Gynecology | DX: Z34.90 Encounter for supervision of normal pregnancy, unspecified, unspecified trimester (principal) | CPT/HCPCS: 80307; 81000; 84443; 85025; 86592; 86762; 86803; 86850; 86900; 87086; 87340; 87491; 87591; 87661; 87806; 88175 ==

== ENCOUNTER → 2022-03-01 10:41 | Outpatient (BNVA) | payer BC, MEDICAID, SELFPAY | PROVIDERS: PCP Registered Nurse; Visit Provider Obstetrics & Gynecology | DX: O09.899 Supervision of other high risk pregnancies, unspecified trimester (principal); R79.89 Other specified abnormal findings of blood chemistry; Z3A.00 Weeks of gestation of pregnancy not specified | CPT/HCPCS: 81000; 84443; 87086 ==

== ENCOUNTER → 2022-03-29 13:37 | Outpatient (BNVA) | payer BC, MEDICAID, SELFPAY | PROVIDERS: PCP Registered Nurse; Visit Provider Obstetrics & Gynecology | DX: Z36.87 Encounter for antenatal screening for uncertain dates (principal) | CPT/HCPCS: 76805 ==

== ENCOUNTER → 2022-04-01 07:51 | Outpatient (BNVA) | payer BC, MEDICAID, SELFPAY | PROVIDERS: PCP Registered Nurse; Visit Provider Obstetrics & Gynecology | DX: O09.899 Supervision of other high risk pregnancies, unspecified trimester (principal); Z3A.00 Weeks of gestation of pregnancy not specified | CPT/HCPCS: 81000 ==

== ENCOUNTER → 2022-04-19 10:10 | Outpatient (BNVA) | payer BC, MEDICAID, SELFPAY | PROVIDERS: PCP Registered Nurse; Visit Provider Obstetrics & Gynecology | DX: O09.899 Supervision of other high risk pregnancies, unspecified trimester (principal); Z3A.00 Weeks of gestation of pregnancy not specified | CPT/HCPCS: 81000; 82950; 85025 ==

== ENCOUNTER → 2022-04-29 13:30 | Outpatient (BNVA) | payer BC, MEDICAID, SELFPAY | PROVIDERS: PCP Registered Nurse; Visit Provider Obstetrics & Gynecology | DX: O09.899 Supervision of other high risk pregnancies, unspecified trimester (principal); F41.9 Anxiety disorder, unspecified; F32.A Depression, unspecified; J45.909 Unspecified asthma, uncomplicated; K21.9 Gastro-esophageal reflux disease without esophagitis; O34.219 Maternal care for unspecified type scar from previous cesarean delivery; Z87.59 Personal history of other complications of pregnancy, childbirth and the puerperium; Z86.79 Personal history of other diseases of the circulatory system; O09.299 Supervision of pregnancy with other poor reproductive or obstetric history, unspecified trimester | CPT/HCPCS: 81000 ==

== ENCOUNTER → 2022-05-02 12:38 | Outpatient (BNVA) | payer BC, MEDICAID, SELFPAY | PROVIDERS: PCP Registered Nurse; Visit Provider Obstetrics & Gynecology | DX: O36.62X0 Maternal care for excessive fetal growth, second trimester, not applicable or unspecified (principal); Z3A.26 26 weeks gestation of pregnancy | CPT/HCPCS: 76816 ==

== ENCOUNTER → 2022-05-17 09:00 | Outpatient (BNVA) | payer BC, MEDICAID, SELFPAY | PROVIDERS: PCP Registered Nurse; Visit Provider Obstetrics & Gynecology | DX: O09.899 Supervision of other high risk pregnancies, unspecified trimester (principal); Z3A.00 Weeks of gestation of pregnancy not specified | CPT/HCPCS: 81000; 85025 ==

== ENCOUNTER → 2022-06-10 11:40 | Outpatient (BNVA) | payer BC, MEDICAID, SELFPAY | PROVIDERS: PCP Registered Nurse; Visit Provider Obstetrics & Gynecology | DX: O09.899 Supervision of other high risk pregnancies, unspecified trimester (principal) | CPT/HCPCS: 81000; 87086 ==

== ENCOUNTER → 2022-06-24 11:40 | Outpatient (BNVA) | payer BC, MEDICAID, SELFPAY | PROVIDERS: PCP Registered Nurse; Visit Provider Nurse Practitioner Women's Health | DX: O09.899 Supervision of other high risk pregnancies, unspecified trimester (principal); O23.599 Infection of other part of genital tract in pregnancy, unspecified trimester; B96.89 Other specified bacterial agents as the cause of diseases classified elsewhere; Z87.59 Personal history of other complications of pregnancy, childbirth and the puerperium; O34.219 Maternal care for unspecified type scar from previous cesarean delivery; F41.9 Anxiety disorder, unspecified; F32.A Depression, unspecified; K21.9 Gastro-esophageal reflux disease without esophagitis; J45.909 Unspecified asthma, uncomplicated; Z3A.00 Weeks of gestation of pregnancy not specified | CPT/HCPCS: 81000 ==

== ENCOUNTER 2022-06-29 13:59 | Outpatient (CLI) | payer BC, MEDICAID, SELFPAY ==
[2022-06-29 14:48] LABS: Basophils % 0.2 %; Eosinophils # 0.1 10^3/uL (0.0-0.8); Eosinophils % 0.5 %; Hematocrit 31.9 % (37.0-47.0); Hemoglobin 10.1 g/dL (11.5-15.3); Lymphocytes # 2.7 10^3/uL (0.8-4.8); Lymphocytes % 24.6 %; Mean Corpuscular HGB Conc 31.7 g/dL (30.0-36.0); Mean Corpuscular Hemoglobin 24.7 pg (28.0-34.0); Mean Platelet Volume 11.8 fL (7.4-10.4); Monocytes # 0.8 10^3/uL (0.2-0.9); Monocytes % 7.3 %; Neutrophils # 7.29 10^3/uL (1.8-7.7); Neutrophils % 66.8 %; Nucleated Red Blood Cells % 0 %; Platelet Count 191 10^3/cmm (130-400); Red Blood Count 4.09 10^6/uL (4.1-5.3); Red Cell Distribution Width 15.7 % (12.1-15.1); White Blood Count 10.9 10^3/uL (4.0-10.0)
[2022-06-29 15:19] LABS: Thyroid Stimulating Hormone 0.59 uIU/mL (0.27-4.20)
== END 2022-06-29 14:00 | disposition home or self-care (01) ==
LOC: LAB 14:02
PROVIDERS: PCP Registered Nurse; Visit Provider Nurse Practitioner Women's Health
DX: O09.899 Supervision of other high risk pregnancies, unspecified trimester (principal); D64.9 Anemia, unspecified; R53.83 Other fatigue
CPT/HCPCS: 36415; 84439; 84443; 85025

== ENCOUNTER 2022-07-01 11:12 | Outpatient (CLI) | payer BC, MEDICAID, SELFPAY ==
[2022-07-01 12:17] LABS: Basophils % 0.3 %; Eosinophils # 0.1 10^3/uL (0.0-0.8); Eosinophils % 0.5 %; Hematocrit 32.4 % (37.0-47.0); Hemoglobin 10.1 g/dL (11.5-15.3); Lymphocytes # 2.3 10^3/uL (0.8-4.8); Lymphocytes % 22.5 %; Mean Corpuscular HGB Conc 31.2 g/dL (30.0-36.0); Mean Corpuscular Hemoglobin 24.4 pg (28.0-34.0); Mean Corpuscular Volume 78.3 fl (81-99); Mean Platelet Volume 11.9 fL (7.4-10.4); Monocytes # 0.6 10^3/uL (0.2-0.9); Monocytes % 6.2 %; Neutrophils # 7.22 10^3/uL (1.8-7.7); Neutrophils % 69.8 %; Nucleated Red Blood Cells % 0 %; Platelet Count 190 10^3/cmm (130-400); Red Blood Count 4.14 10^6/uL (4.1-5.3); Red Cell Distribution Width 15.7 % (12.1-15.1); White Blood Count 10.3 10^3/uL (4.0-10.0)
[2022-07-01 12:48] LABS: Thyroid Stimulating Hormone 0.62 uIU/mL (0.27-4.20)
[2022-07-01 12:54] LABS: Vitamin B12 219 pg/mL (232-1245)
[2022-07-01 12:59] LABS: Folate Level 8.2 ng/mL (4.8-37.3)
[2022-07-01 13:16] LABS: Iron 31 ug/dL (37-145); Percent Saturation 6.6 % (20-50); Total Iron Binding Capacity 467 mcg/dl; Unsaturated Iron Binding 436 ug/dL (112-347)
[2022-07-01 13:17] LABS: Ferritin 7 ng/mL (15-150)
== END 2022-07-01 11:13 | disposition home or self-care (01) ==
LOC: LAB 11:15
PROVIDERS: PCP Registered Nurse; Visit Provider Nurse Practitioner Women's Health
DX: O99.019 Anemia complicating pregnancy, unspecified trimester (principal); R53.83 Other fatigue
CPT/HCPCS: 82607; 82728; 82746; 83540; 83550; 84443; 85025

== ENCOUNTER → 2022-07-08 13:00 | Outpatient (BNVA) | payer BC, MEDICAID, SELFPAY | PROVIDERS: PCP Registered Nurse; Visit Provider Obstetrics & Gynecology | DX: O09.899 Supervision of other high risk pregnancies, unspecified trimester (principal); Z3A.00 Weeks of gestation of pregnancy not specified | CPT/HCPCS: 87081 ==

== ENCOUNTER 2022-07-13 20:40 | Outpatient (CLI) | payer BC, MEDICAID, SELFPAY ==
[2022-07-13] VITALS (10 sets, daily range): BP systolic 119–148; BP diastolic 69–80; PULSE 85–118; RESP 16; BMI 35.4
[2022-07-13 21:19] LABS: Bilirubin Urine Neg (Negative); Blood Urine Neg (Negative); Glucose Urine UA Norm (Normal); Ketones Urine Negative (Negative); Nitrate Urine Negative (Negative); Protein Urine Neg (Negative); Urine Appearance Clear (CLEAR); Urine Color Yellow (Yellow); Urobilinogen Urine Norm (Negative); pH Urine 7 (5-7)
[2022-07-13 21:20] LABS: Leukocyte Esterase Urine Trace (Negative)
[2022-07-13 21:21] LABS: RBC Urine 0-4 /hpf (0-2)
[2022-07-13 21:22] LABS: Bacteria Urine TR /hpf
[2022-07-13] MEDS: acetaminophen 500 mg Tablet 1000 MG PO (21:39)
[2022-07-13] MEDS: NIFEdipine 10 mg Capsule 20 MG PO (21:39)
[2022-07-13] MEDS: nitrofurantoin SR (BID) 100 mg Capsule PO (23:13)
== END 2022-07-13 23:20 | disposition home or self-care (01) ==
LOC: OPOB 20:43 → OBGYN 20:44
PROVIDERS: PCP Registered Nurse; Visit Provider Obstetrics & Gynecology
DX: O26.899 Other specified pregnancy related conditions, unspecified trimester (principal); Z3A.00 Weeks of gestation of pregnancy not specified; R10.9 Unspecified abdominal pain; R10.2 Pelvic and perineal pain
CPT/HCPCS: 59025; 81001; 87086; 99211

== ENCOUNTER → 2022-07-15 08:33 | Outpatient (BNVA) | payer BC, MEDICAID, SELFPAY | PROVIDERS: PCP Registered Nurse; Visit Provider Obstetrics & Gynecology | DX: O09.899 Supervision of other high risk pregnancies, unspecified trimester (principal); O34.219 Maternal care for unspecified type scar from previous cesarean delivery; O99.019 Anemia complicating pregnancy, unspecified trimester; F41.9 Anxiety disorder, unspecified; F32.A Depression, unspecified; J45.909 Unspecified asthma, uncomplicated; K21.9 Gastro-esophageal reflux disease without esophagitis; Z87.59 Personal history of other complications of pregnancy, childbirth and the puerperium; Z86.79 Personal history of other diseases of the circulatory system; O09.299 Supervision of pregnancy with other poor reproductive or obstetric history, unspecified trimester; O23.599 Infection of other part of genital tract in pregnancy, unspecified trimester; B96.89 Other specified bacterial agents as the cause of diseases classified elsewhere | CPT/HCPCS: 81000 ==

== ENCOUNTER → 2022-07-21 12:50 | Outpatient (BNVA) | payer BC, MEDICAID, SELFPAY | PROVIDERS: PCP Registered Nurse; Visit Provider Obstetrics & Gynecology | DX: O09.899 Supervision of other high risk pregnancies, unspecified trimester (principal); Z3A.00 Weeks of gestation of pregnancy not specified | CPT/HCPCS: 81000; 87086 ==

== ENCOUNTER 2022-07-28 12:00 | Outpatient (CLI) | payer BC, MEDICAID, SELFPAY ==
[2022-07-28 12:06] VITALS: BMI 35.6
[2022-07-28 12:08] VITALS: BP 134/75; PULSE 88
[2022-07-28 12:09] VITALS: TEMP 35.7
[2022-07-28 12:29] VITALS: BP 139/78; PULSE 96
--- NOTE | 2022-07-28 12:32 | US_ITS ---
WS: [id number] LIMITED OBSTETRICAL ULTRASOUND BIOPHYSICAL PROFILE HISTORY: Decreased movement COMPARISON: 12/23/2021, 01/12/2022, 05/02/2022 Presentation: Vertex. Cervix: Closed and normal length. Placenta: Posterior, no previa. Grade: 3 HEART: FHR of 150 BPM. measurements: BPD = 9.6 cm = 39w1d; 84th percentile HC = 33.8 cm = 38w5d; 33rd percentile AC = 34.7 cm = 38w4d; 64th percentile FL = 7.5 cm = 38w4d; 47th percentile ROSELIA: 13.3 cm EFW: 3554 g; 83rd percentile AGA by ultrasound: 38w5d RENETTA by ultrasound: 08/06/2022 Measurements are internally concordant. No growth restriction. Appropriate growth since the fir st trimester ultrasound. BIOPHYSICAL PROFILE AMNIOTIC FLUID HISTORY: Decreased movement COMPARISON: None available. position: Vertex. Cardiac activity: bpm. Cervix: closed. Placenta: Posterior, no previa or abruption. Placenta grade: 2 Parameters are as follows: Breathin Movement: 2 Tone: 2 Fluid volume: 2 Amniotic Fluid Index: 13.3 cm; single deep vertical pocket 4.0 cm. US/US OB lm w fetalBPP woNST &umb IMPRESSION: 1. Biophysical profile score: 12/27. 2. IMPRESSION: 1. Single intrauterine gestation of 38 weeks 5 days with an EDC of 08/06/2022. 2. Estimated weight at the 83rd percentile for age. 3. No growth restriction. 4. Normal amniotic fluid. 5. Grade 3 placenta. 6. Biophysical profile 12/27.
== END 2022-07-28 13:25 | disposition home or self-care (01) ==
LOC: OPOB 12:02 → OBGYN 12:03
PROVIDERS: PCP Registered Nurse; Visit Provider Obstetrics & Gynecology
DX: O36.8190 Decreased fetal movements, unspecified trimester, not applicable or unspecified (principal); Z3A.00 Weeks of gestation of pregnancy not specified
CPT/HCPCS: 59025; 76815; 76819; 76820; 99211

== ENCOUNTER → 2022-07-29 10:47 | Outpatient (BNVA) | payer BC, MEDICAID, SELFPAY | PROVIDERS: PCP Registered Nurse; Visit Provider Obstetrics & Gynecology | DX: O09.899 Supervision of other high risk pregnancies, unspecified trimester (principal); Z3A.00 Weeks of gestation of pregnancy not specified | CPT/HCPCS: 81000 ==

== ENCOUNTER 2022-08-05 15:14 | Outpatient (CLI) | payer BC, MEDICAID, SELFPAY ==
--- NOTE | 2022-08-05 15:21 | USR_ITS ---
PROCEDURE INFORMATION: Exam: US Biophysical Profile Without Non-Stress Test Exam date and time: 08/05/2022 4:23 PM Age: 27 years old Clinical indication: Other: Failed nst; ; Additional info: Failed nst in office TECHNIQUE: Imaging protocol: US biophysical profile without non-stress testing. COMPARISON: US OB >= 14 weeks fetus [id number] 03/29/2022 1:42 PM FINDINGS: heart rate: 141 bpm Amniotic fluid: Amniotic fluid volume is subjectively unremarkable. Deepest individual pocket 6.7 cm. BIOPHYSICAL PROFILE: breathing movement (BPP): 0/2 body movement (BPP): 0/2 tone (BPP): 0/2 Amniotic fluid (BPP): 2/2 Biophysical profile score (BPP): 2/8 US/US OB BPP wo NST [id number] IMPRESSION: 1. Abnormal biophysical profile score /8. 2. Single live intrauterine gestation with cephalic presentation.
[2022-08-05 16:20] VITALS: RESP 16
== END 2022-08-05 17:24 | disposition home or self-care (01) ==
LOC: OPOB 15:19 → OBGYN 15:22
PROVIDERS: PCP Registered Nurse; Visit Provider Obstetrics & Gynecology
DX: O26.899 Other specified pregnancy related conditions, unspecified trimester (principal); Z3A.00 Weeks of gestation of pregnancy not specified
CPT/HCPCS: 76819; 99211

== ENCOUNTER 2022-08-06 07:00 | Inpatient (IN) | payer BC, MEDICAID, SELFPAY ==
[2022-08-05 22:25] VITALS: BMI 35.1
[2022-08-05 22:42] VITALS: BP 155/82; PULSE 116
[2022-08-05 23:00] VITALS: BP 130/82; PULSE 108
[2022-08-05 23:27] VITALS: BP 127/75; PULSE 93
--- NOTE | 2022-08-05 23:33 | PM.OPHPUD ---
Labor & Delivery H&P Update Date of Procedure: August 05, 2022 Date H&P Performed: 08/05/22 H&P update information: I have reviewed H&P completed within last 30 days, I have examined patient prior to procedure and Changes to prior documentation as noted here (Biophysical profile: 06/29) Admission Diagnosis:
--- NOTE | 2022-08-05 23:34 | P.PN_ITS ---
Subjective Subjective: Mrs. August is a 27-year-old female -1-4-2 with an estimated gestational age of 40 weeks. Previous delivery x1, previous x1. NST nonreactive, biophysical Profile: 07/01. Vitals/I&O/Wt Last Vital Signs Pulse 93 08/05/22 23:27 BP 127/75 08/05/22 23:27 Physical Exam Narrative: GA: Alert and oriented ?3. Lungs: Clear to auscultation bilaterally. Heart: Regular rhythm and rate. Abdomen: Gravid, full the height equals dates, nontender. TERRITORY SALES REPRESENTATIVE: SVE; dilation: 1-2 cm, effacement: 20%, station: -3, presentation: vx, membranes: IM. Extremities: no edema, no cyanosis, no calves pain. heart tracing: Basal rate: 140's bpm, Variability: moderate, Accelerations: present, Decelerations: absent, Contraction: q5min. A&P Assessment and plan (1) Supervision of other high-risk : Mrs. August 27-year-old female , with 1 previous delivery and 1 in estimated gestational age at 40 weeks. During visit NST was nonreactive. The patient was sent to labor and delivery for biophysical profile which resulted in 07/01. Patient was counseled regarding these findings and recommendation for induction as she wants to have another . At the time of recommendation the patient requested to be allowed to go home to take care of her kids and get her things. She arrived 10 PM. She was counseled regarding mechanical ripening of the cervix with the Cook double balloon. She was also noted to have contractions every 5 minutes. heart tracing category 1. The Cook double balloon was inserted without complications. (2) Hx successful (vaginal after ), currently : (3) History of delivery: (4) History of premature rupture of membranes (PPROM): Attestations Medical Necessity Statement*: My professional opinion per admitting diagnosis Coding Level of Care Code Acute Code for Chg Fwd Diagnoses Supervision of other high-risk O09.899 Hx successful (vaginal after ), currently O34.219 History of delivery Z98.891 History of premature rupture of membranes (PPROM) Z87.59
[2022-08-05 23:42] VITALS: BP 133/77; PULSE 87
[2022-08-05 23:57] VITALS: BP 134/79; PULSE 79
[2022-08-06] VITALS (27 sets, daily range): BP systolic 102–150; BP diastolic 56–90; PULSE 70–98; RESP 16–17; TEMP 36.6–37.2; O2SAT 97–99
[2022-08-06 00:23] LABS: Basophils % 0.2 %; Eosinophils % 0.2 %; Hematocrit 34.5 % (37.0-47.0); Hemoglobin 10.5 g/dL (11.5-15.3); Lymphocytes # 2.9 10^3/uL (0.8-4.8); Lymphocytes % 23.6 %; Mean Corpuscular HGB Conc 30.4 g/dL (30.0-36.0); Mean Corpuscular Hemoglobin 23.8 pg (28.0-34.0); Mean Corpuscular Volume 78.2 fl (81-99); Mean Platelet Volume 12.1 fL (7.4-10.4); Monocytes # 0.8 10^3/uL (0.2-0.9); Monocytes % 6.1 %; Neutrophils # 8.52 10^3/uL (1.8-7.7); Neutrophils % 69.4 %; Nucleated Red Blood Cells % 0 %; Platelet Count 235 10^3/cmm (130-400); Red Blood Count 4.41 10^6/uL (4.1-5.3); Red Cell Distribution Width 16.7 % (12.1-15.1); White Blood Count 12.3 10^3/uL (4.0-10.0)
[2022-08-06] MEDS: dextrose 5%-lactated ringers 1,000 ML 125 ML IV ×2 (00:29→08:31)
--- NOTE | 2022-08-06 03:00 | P.PN_ITS ---
VETERINARIAN ASSISTANT Subjective Subjective: Interval history: 27yo female received from Dr. Goel for Verdin Cath Cervical Ripening/ trial. Pt presently 40 wks and had NR-NST in office followed by BPP 06/29. record reviewed. EFM- Cat 1, no contractions currently. Balloon intact. Labor: Amniotic Membrane Status: Intact Monitor Mode: External Contraction Pattern: Irregular Vitals/I&O/Wt Last Vital Signs Pulse 75 08/06/22 02:38 Resp 16 08/06/22 00:00 BP 118/68 08/06/22 02:38 O2 Del Method 08/06/22 00:00 Weight last 48 hrs Weight 95.708 kg Data 08/05/22 23:00 A&P Assessment and plan (1) Supervision of other high-risk : Plan A. 40.1 wk IUP with NRNST and BPP 06/29 Previous C/S at 36.6 wk with PPROM Previous with Shoulder dystocia Anemia GBS Negative Desires Sterilization P. Continue EFM, remove Verdin Cath after 12 hrs, if it hasn't been expelled. Attestations Medical Necessity Statement*: Manage of ADRIAN with cervical ripening . Coding Level of Care Code Acute Code for Chg Fwd Diagnoses Supervision of other high-risk O09.899
--- NOTE | 2022-08-06 09:09 | P.PN_ITS ---
AIRCRAFT POWER PLANT ASSEMBLER Subjective Subjective: Interval history: Pt doing well, no complaints. Nursing staff called Verdin Cath expellled, Cervix 7cm/50%/-3 vtx. Discussed plan with pt to start Pitocin instead of AROM since head not making contact with cervix and risk of cord prolapse. Pt understands. Labor: Station: -4 Amniotic Membrane Status: Intact Monitor Mode: External Contraction Pattern: Rare Vitals/I&O/Wt Last Vital Signs Pulse 90 08/06/22 07:38 Resp 16 08/06/22 00:00 BP 118/67 08/06/22 07:38 O2 Del Method 08/06/22 00:00 08/05/22 08/06/22 08/06/22 22:59 06:59 14:59 Intake Total 1000 / 1000 Balance 1000 / 1000 Weight last 48 hrs Weight 95.708 kg Data 08/05/22 23:00 A&P Assessment and plan (1) Supervision of other high-risk : A. 40.1 wk IUP with NRNST and 2/8 BPP Hx of Hx of C/S Desires Sterilization P. Continue care, and start Pitocin augmentation Attestations Medical Necessity Statement*: Management of ADRIAN. Coding Level of Care Code Acute Code for Chg Fwd Diagnoses Supervision of other high-risk O09.899
[2022-08-06] MEDS: oxytocin 30 UNIT/500 ML BAG IV (09:25)
--- NOTE | 2022-08-06 12:05 | P.PN_ITS ---
BATTERY PLATE ASSEMBLER Subjective Subjective: Interval history: Patient doing well no complaints. Cervix exam?9 cm / 50%/-2 vertex. AROM?clear fluid noted. EFM?few variables with good recovery noted, contractions irregular. Labor: Station: -4 Amniotic Membrane Status: Intact Monitor Mode: External Contraction Pattern: Occasional Vitals/I&O/Wt Last Vital Signs Temp 97.9 F 08/06/22 11:12 Pulse 81 08/06/22 11:27 Resp 16 08/06/22 00:00 BP 128/70 08/06/22 11:27 O2 Del Method 08/06/22 00:00 08/05/22 08/06/22 08/06/22 22:59 06:59 14:59 Intake Total 1000 / 1000 Balance 1000 / 1000 Weight last 48 hrs Weight 95.708 kg Data 08/05/22 23:00 A&P Assessment and plan (1) Supervision of other high-risk : Plan A. 40.1-week IUP Nonreactive NST with 2/8 biophysical profile GBS negative History of History of History of shoulder dystocia with P. Continue present care Attestations Medical Necessity Statement*: Management of labor Coding Level of Care Code Acute Code for Chg Fwd Diagnoses Supervision of other high-risk O09.899
[2022-08-06] MEDS: lactated ringers 1,000 ML 999 ML IV (12:50)
--- NOTE | 2022-08-06 13:13 | P.ANESASSM_ITS ---
Pre-Anesthetic Assessment Height/Weight: Height 1.65 m Weight 95.708 kg Temp Pulse Resp BP O2 Del Method 97.9 F 98 16 138/90 08/06/22 11:12 08/06/22 12:27 08/06/22 00:00 08/06/22 12:27 08/06/22 00:00 Was Beta Jose Guadalupe taken within 24 hours: N/A Was Clonidine taken within 24 hours: N/A Social No alcohol and No tobacco Exam alert, oriented x 3, clear to auscultation bilaterally and regular rate & rhythm Airway Submandibular: within normal limits Cervical ROM: within normal limits Mallampati: Class III Dentition: chipped Comments: Comments: Poor dentition, multiple caries History/ROS No significant history except as noted and No significant complaints Pulmonary Asthma CV/HEM None reported None reported Hepatic None reported GI Gastroesophageal Reflux Disease Metabolic None reported Musc/skel Lower Back Pain and Scoliosis Neuropsych Anxiety and Depression Anesthetic Plan ASA status: 2 Anesthesia: Regional (specify below) (Epidural) Risk of > 500 ml blood loss (7ml/kg in children): No Medications/Allergies Home Medications Medication Instructions Recorded Confirmed Last Taken Type prenat.vits,mary,spe-vitb-ioxmv 1 tab PO DAILY 01/06/22 08/06/22 08/05/22 History ferrous sulfate 325 mg (65 mg 325 mg PO BID #60 tabs 04/19/22 08/06/22 08/05/22 Rx iron) tablet albuterol sulfate 90 mcg/actuation See Rx Instructions .Route .COMPLEX 06/24/22 08/06/22 Unknown History aerosol inhaler pantoprazole 40 mg tablet,delayed See Rx Instructions .Route 07/26/22 08/06/22 08/05/22 Rx release .COMPLEX #90 tabs Allergies Allergy/AdvReac Type Severity Reaction Status Date / Time iodine Allergy Severe ALGY-Anaphy Verified 08/05/22 13:58 laxis Penicillins Allergy Mild ALGY-Hives Verified 08/05/22 13:58 cefdinir Allergy ADR-Vomitin Verified 08/05/22 13:58 g metoclopramide [From Reglan] Allergy ADR-Agitate Verified 08/05/22 13:58 d Current Medications Generic Name Dose Route Start Last Admin Trade Name Freq PRN Reason Stop Dose Admin Dextrose/Lactated Ringer's 1,000 mls @ 125 mls/hr 08/05/22 23:45 08/06/22 08:31 Dextrose 5%-Lactated Ringers IV 125 mls/hr .Q8H GUILLERMO Administration Oxytocin 30 unit in 500 mls @ 1 mls/hr 08/06/22 09:15 08/06/22 11:40 Pitocin IV 6 milliunit/min .Q24H GUILLERMO 6 mls/hr Titration Protocol 1 MILLIUNIT/MIN PFSH Anesthesia Medical History (Updated 08/06/22 @ 03:08 by Yessenia Parra DO) Anxiety managed w/o medication; historically tried zoloft without improvement. Has not been on this since 2020. Asthma GERD (gastroesophageal reflux disease) No pertinent past medical history neghx: htn,dm,thyroid,dvt/pe PCP: Mata Fisher Pelvic pain depression Supervision of other high-risk Surgical History History of section, low transverse (11/20/18) PLTCS. Dx: Nonreassuring FHT. Performed by Dr. Bustillo at [facility] – [place], [place]. History of tonsillectomy and adenoidectomy (~2013) Family History Father Hypertension Diabetes Hyperlipidemia Grandmother Diabetes paternal Denies family history of Colon cancer Ovarian cancer Heart disease Breast cancer Uterine cancer Thyroid condition Stroke Social History Smoking and tobacco status: never smoked Female Reproductive History : 7 Data Anesthesia 08/05/22 23:00 Short CBC 08/05/22 Range/Units 23:00 WBC 12.3 H (4.0-10.0) 10^3/uL Hgb 10.5 L (11.5-15.3) g/dL Hct 34.5 L (37.0-47.0) % MCV 78.2 L (81-99) fl Plt Count 235 (130-400) 10^3/cmm Neut % (Auto) 69.4 % Neut # (Auto) 8.52 H (1.8-7.7) 10^3/uL Cardiac Studies: No Data to Display
[2022-08-06] MEDS: lidocaine 2% INJ 20 mL INJECTION (13:25)
[2022-08-06] MEDS: methylergonovine 0.2 mg/mL INJ 1 mL IM (13:40)
--- NOTE | 2022-08-06 13:42 | PM.DELIVERY ---
Delivery Note: Date of delivery: August 06, 2022 Pre-delivery diagnoses: 40.1 wk IUP with NRNST and BPP 2/8 GBS neg Hx of wih shoulder dystocia Hx of Previous C/S Post-delivery diagnoses: Shoulder Dystocia Nuchal cord x 1 Procedure: 27-year-old G5, P3 delivered after trial of labor for . At complete dilatation patient had the urge to push. Pelvic exam revealed complete dilatation +2 station. With several pushes the vertex presented in OA presentation, patient's thighs were flexed, with an attempt to deliver the vertex no movement was encountered. Rotation of the anterior shoulder counterclockwise with delivery of the vertex with a nuchal cord x1 noted and easily reduced. The anterior shoulder presented and rotated with delivery of the posterior shoulder, the remainder of the baby's body followed with no obstruction. Spontaneous cry was noted. With delay of the cord clamping, the cord was then clamped and cut. Baby was placed on the warmer for nursing evaluation. Cord blood was obtained and handed off. The uterus was massaged, and the placenta presented in a Merrill presentation with trailing membranes. The uterus was massaged and Pitocin solution was given in a bolus manner through the IV. The uterus was explored as well as the vaginal vault with a small second-degree laceration in the vagina was noted and repaired with 2-0 Vicryl with good hemostasis and approximation. Methergine 0.2 mg IM was given. The uterus continued to be massaged and firm well. Mother and are both in stable satisfactory condition. ?8/9 weight?pending anesthesia?none Needle and sponge counts correct. Delivering Physician: Yessenia Parra DO Estimated blood loss (mL): 350 Findings: Normal Viable Male Delivery: viable male Post-Delivery Status: stable History History History 7 Term 1 1 Miscarriages/Ectopic 4 Living Children 2 A&P Assessment and plan (1) Supervision of other high-risk : P. Began care. Coding Level of Care Code Acute Code for Chg Fwd Diagnoses Supervision of other high-risk O09.899
[2022-08-06] MEDS: ibuprofen 800 mg tablet PO ×2 (14:47→21:10)
[2022-08-06] MEDS: benzocaine-menthol 78 gm Canister 1 SPRAY TOPICAL (15:46)
[2022-08-06] MEDS: alum-mag-hydroxide-sime 30 mL UDC PO (19:28)
[2022-08-06] MEDS: HYDROcodone-acetaminophen 5-325 mg Tablet PO (20:23)
[2022-08-06] MEDS: docusate sodium 100 mg Capsule PO (20:23)
[2022-08-07 01:29] VITALS: BP 136/77; PULSE 83; TEMP 36.7; O2SAT 98
[2022-08-07 01:37] LABS: Hematocrit 25.7 % (37.0-47.0); Hemoglobin 7.9 g/dL (11.5-15.3); Mean Corpuscular HGB Conc 30.7 g/dL (30.0-36.0); Mean Corpuscular Hemoglobin 24.3 pg (28.0-34.0); Mean Corpuscular Volume 79.1 fl (81-99); Mean Platelet Volume 11.9 fL (7.4-10.4); Platelet Count 178 10^3/cmm (130-400); Red Blood Count 3.25 10^6/uL (4.1-5.3); Red Cell Distribution Width 16.8 % (12.1-15.1); White Blood Count 13.2 10^3/uL (4.0-10.0)
[2022-08-07] MEDS: HYDROcodone-acetaminophen 5-325 mg Tablet PO ×2 (04:12→12:25)
[2022-08-07 04:14] VITALS: BP 148/90; PULSE 84; RESP 16; TEMP 36.7; O2SAT 99
[2022-08-07] MEDS: ibuprofen 800 mg tablet PO (08:06)
[2022-08-07] MEDS: docusate sodium 100 mg Capsule PO (08:06)
[2022-08-07] MEDS: prenatal vitamin Capsule 1 CAP PO (08:06)
[2022-08-07 09:15] VITALS: BP 121/75; PULSE 73; RESP 16; TEMP 36.7
--- NOTE | 2022-08-07 09:17 | P.PN_ITS ---
TOOL PROCUREMENT COORDINATOR Subjective Subjective: Interval history: Patient seen doing well no complaints, s/p , patient is tolerating regular diet ambulating and voiding. Baby is in room patient has been caring for infant without nursing assistance. She is bottlefeeding. With ambulation she denies headaches or blurred vision. Discussed anemia and advised to continue vitamins daily as well as ferrous sulfate twice daily. Discussed discharge today, with no heavy lifting pushing or pulling no sex d ouching or tampons x6 weeks. Patient advised to see her OB physician in 2 to 4 weeks. Labor: Station: +2 Amniotic Membrane Status: Intact Monitor Mode: External Contraction Pattern: Regular Vitals/I&O/Wt Last Vital Signs Temp 98.1 F 08/07/22 04:14 Pulse 84 08/07/22 04:14 Resp 16 08/07/22 04:14 BP 148/90 08/07/22 04:14 Pulse Ox 99 08/07/22 04:14 O2 Del Method 08/07/22 04:14 08/06/22 08/07/22 08/07/22 22:59 06:59 14:59 Intake Total 480.734 / 2060.417 Balance 480.734 / 2060.417 Weight last 48 hrs Weight 95.708 kg Physical Exam : COMMON NORMALS: Yes no CVA tenderness BLADDER/KIDNEY EXAM: Yes no CVA tenderness Back/Pelvis: COMMON NORMALS: no CVA tenderness OTHER: Abdomen?soft, fundus firm. Lochia light. Extremity: COMMON NORMALS: normal to inspection, no calf tenderness and no pedal edema Data 08/07/22 01:27 A&P Assessment and plan (1) Supervision of other high-risk : (2) Hx successful (vaginal after ), currently : (3) History of delivery: Plan A. S/p Successful Shoulder dystocia Acute blood loss anemia?asymptomatic P. Discharge to home this p.m. Follow-up advised in 2 weeks Patient to continue vitamins daily and ferrous sulfate twice daily. Attestations Medical Necessity Statement*: S/p , care. Coding Level of Care Code Acute Code for Chg Fwd Diagnoses Supervision of other high-risk O09.899 Hx successful (vaginal after ), currently O34.219 History of delivery Z98.891
--- NOTE | 2022-08-07 13:02 | P.DS_ITS ---
Discharge Providers PERFORMANCE REPORTER Date of Admission: 08/06/22 07:00 Date of Discharge: 08/07/22 Attending Provider at Admission: Yessenia Parra DO Attending Provider at Discharge: Yessenia Parra DO Primary Care Provider: RAYMOND Xie Diagnoses at Discharge Discharge Diagnosis (1) Supervision of other high-risk : Details from hospital stay: 27-year-old female G7, P3 delivered via a viable male. stay has been uneventful, patient is tolerating regular diet voiding and ambulating without difficulties. VSS, afebrile Abdomen?soft, fundus firm. Lochia light. Extremities?no edema Discharge expectations and instructions reviewed. Patient understands. Discussed asymptomatic anemia(hgb7.9) advised patient to continue vitamins and ferrous sulfate twice daily. Status: Acute (2) Hx successful (vaginal after ), currently : Status: Acute (3) History of delivery: Status: Acute Information Peripartum Data: Delivery Method: Vaginal History History History 7 Term 1 1 Miscarriages/Ectopic 4 Living Children 2 Discharge Data Studies Completed and Pending Laboratory Results WBC 13.2 10^3/uL (4.0-10.0) H 08/07/22 01:27 RBC 3.25 10^6/uL (4.1-5.3) L 08/07/22 01:27 Hgb 7.9 g/dL (11.5-15.3) L 08/07/22 01:27 Hct 25.7 % (37.0-47.0) L 08/07/22 01:27 MCV 79.1 fl (81-99) L 08/07/22 01:27 MCH 24.3 pg (28.0-34.0) L 08/07/22 01:27 MCHC 30.7 g/dL (30.0-36.0) 08/07/22 01:27 RDW 16.8 % (12.1-15.1) H 08/07/22 01:27 Plt Count 178 10^3/cmm (130-400) 08/07/22 01:27 MPV 11.9 fL (7.4-10.4) H 08/07/22 01:27 Neut % (Auto) 69.4 % 08/05/22 23:00 Lymph % (Auto) 23.6 % 08/05/22 23:00 Brule % (Auto) 6.1 % 08/05/22 23:00 Eos % (Auto) 0.2 % 08/05/22 23:00 Baso % (Auto) 0.2 % 08/05/22 23:00 Neut # (Auto) 8.52 10^3/uL (1.8-7.7) H 08/05/22 23:00 Lymph # (Auto) 2.9 10^3/uL (0.8-4.8) 08/05/22 23:00 Brule # (Auto) 0.8 10^3/uL (0.2-0.9) 08/05/22 23:00 Eos # (Auto) 0.0 10^3/uL (0.0-0.8) 08/05/22 23:00 Baso # (Auto) 0.0 10^3/uL (0.0-0.1) 08/05/22 23:00 Nucleated RBC % (auto) 0 % 08/05/22 23:00 Nucleated RBCs # 0.0 /100WBC 08/05/22 23:00 Vitals Last Vital Signs Temp 98.0 F 08/07/22 09:15 Pulse 73 08/07/22 09:15 Resp 16 08/07/22 09:15 BP 121/75 08/07/22 09:15 Pulse Ox 99 08/07/22 04:14 O2 Del Method 08/07/22 04:14 Discharge Attestations PERFORMANCE REPORTER Time Spent in Discharge Care*: less than 30 min Coding Level of Care Code Acute Code for Chg Fwd Diagnoses Supervision of other high-risk O09.899 Hx successful (vaginal after ), currently O34.219 History of delivery Z98.891
[2022-08-07 17:48] VITALS: BP 121/75; PULSE 73; RESP 16; TEMP 36.7
[2022-08-11 10:01] VITALS: BP 132/76; PULSE 118
[2022-08-11 10:16] VITALS: BP 118/60; PULSE 102
== END 2022-08-07 15:00 | disposition home or self-care (01) | DRG 807 ==
LOC: OPOB 08-08 08:05
PROVIDERS: Admitting Provider Obstetrics & Gynecology; PCP Registered Nurse; Visit Provider Obstetrics & Gynecology
DX: O48.0 Post-term pregnancy (principal); Z37.0 Single live birth; Z3A.40 40 weeks gestation of pregnancy; O99.344 Other mental disorders complicating childbirth; O99.02 Anemia complicating childbirth; D64.9 Anemia, unspecified; O69.2XX0 Labor and delivery complicated by other cord entanglement, with compression, not applicable or unspecified; O66.0 Obstructed labor due to shoulder dystocia; O70.1 Second degree perineal laceration during delivery; O75.89 Other specified complications of labor and delivery; F41.8 Other specified anxiety disorders; J45.909 Unspecified asthma, uncomplicated; K21.9 Gastro-esophageal reflux disease without esophagitis; O34.219 Maternal care for unspecified type scar from previous cesarean delivery; Z87.891 Personal history of nicotine dependence
CPT/HCPCS: 12345; 36415; 59025; 59409; 85025; 85027; 96372; 99211; J2210; J2590; J7120; J7121

== ENCOUNTER 2023-03-30 10:49 | Outpatient (CLI) | payer BC, MEDICAID, SELFPAY | END 2023-03-30 10:50 | disposition home or self-care (01) | LOC: LAB 10:50 | PROVIDERS: PCP Registered Nurse; Visit Provider Nurse Practitioner Women's Health | DX: R10.2 Pelvic and perineal pain (principal); Z78.9 Other specified health status | CPT/HCPCS: 36415; 84702; 87491; 87591 ==

== ENCOUNTER 2023-04-03 10:22 | Outpatient (CLI) | payer BC, MEDICAID, SELFPAY | END 2023-04-03 10:23 | disposition home or self-care (01) | PROVIDERS: PCP Registered Nurse; Visit Provider Nurse Practitioner Women's Health | DX: O20.9 Hemorrhage in early pregnancy, unspecified (principal) | CPT/HCPCS: 36415; 84702 ==

== ENCOUNTER → 2023-04-06 09:12 | Outpatient (BNVA) | payer BC, MEDICAID, SELFPAY | PROVIDERS: PCP Registered Nurse; Visit Provider Nurse Practitioner Women's Health | DX: O20.9 Hemorrhage in early pregnancy, unspecified (principal); Z3A.01 Less than 8 weeks gestation of pregnancy | CPT/HCPCS: 76817; 84702 ==

== ENCOUNTER → 2023-04-10 13:25 | Outpatient (BNVA) | payer BC, MEDICAID, SELFPAY | PROVIDERS: PCP Registered Nurse; Visit Provider Obstetrics & Gynecology | DX: O20.9 Hemorrhage in early pregnancy, unspecified (principal); Z3A.01 Less than 8 weeks gestation of pregnancy | CPT/HCPCS: 76817; 84702 ==

== ENCOUNTER → 2023-04-17 09:12 | Outpatient (BNVA) | payer BC, MEDICAID, SELFPAY | PROVIDERS: PCP Registered Nurse; Visit Provider Obstetrics & Gynecology | DX: O20.9 Hemorrhage in early pregnancy, unspecified (principal); Z3A.01 Less than 8 weeks gestation of pregnancy | CPT/HCPCS: 76817 ==

== ENCOUNTER → 2023-05-11 09:00 | Outpatient (BNVA) | payer BC, MEDICAID, SELFPAY | PROVIDERS: PCP Registered Nurse; Visit Provider Obstetrics & Gynecology | DX: Z34.90 Encounter for supervision of normal pregnancy, unspecified, unspecified trimester (principal) | CPT/HCPCS: 80307; 81000; 85025; 86592; 86762; 86803; 86850; 86900; 87086; 87340; 87806 ==

== ENCOUNTER → 2023-05-17 13:21 | Outpatient (BNVA) | payer BC, MEDICAID, SELFPAY | PROVIDERS: PCP Registered Nurse; Visit Provider Nurse Practitioner Women's Health | DX: Z34.90 Encounter for supervision of normal pregnancy, unspecified, unspecified trimester (principal) | CPT/HCPCS: 76801 ==

== ENCOUNTER → 2023-05-29 10:00 | Outpatient (BNVA) | payer BC, MEDICAID, SELFPAY | PROVIDERS: PCP Registered Nurse; Visit Provider Obstetrics & Gynecology | DX: O09.899 Supervision of other high risk pregnancies, unspecified trimester (principal); Z3A.00 Weeks of gestation of pregnancy not specified | CPT/HCPCS: 81000; 87491; 87591 ==

== ENCOUNTER → 2023-07-05 15:25 | Outpatient (BNVA) | payer BC, MEDICAID, SELFPAY | PROVIDERS: PCP Registered Nurse; Visit Provider Obstetrics & Gynecology | DX: O09.899 Supervision of other high risk pregnancies, unspecified trimester (principal); Z3A.17 17 weeks gestation of pregnancy | CPT/HCPCS: 84315; 87086 ==

== ENCOUNTER 2023-07-20 15:05 | Outpatient (CLI) | payer MEDICAID, SELFPAY ==
[2023-07-20 16:40] LABS: Urine Total Protein 6.7 mg/dL (0-150)
[2023-07-20 23:25] LABS: Total Volume, Urine 1675 mL; Urine Total Protein 24 Hour 112.2 mg/24hr (0-150)
== END 2023-07-20 15:06 | disposition home or self-care (01) ==
PROVIDERS: PCP Registered Nurse; Visit Provider Obstetrics & Gynecology
DX: O09.892 Supervision of other high risk pregnancies, second trimester (principal); Z36.89 Encounter for other specified antenatal screening; Z3A.20 20 weeks gestation of pregnancy
CPT/HCPCS: 76805; 84156

== ENCOUNTER → 2023-08-21 08:17 | Outpatient (BNVA) | payer BC, MEDICAID, SELFPAY | PROVIDERS: PCP Registered Nurse; Visit Provider Obstetrics & Gynecology | DX: O09.899 Supervision of other high risk pregnancies, unspecified trimester (principal); Z3A.20 20 weeks gestation of pregnancy | CPT/HCPCS: 82950; 84315 ==

== ENCOUNTER → 2023-09-18 07:48 | Outpatient (BNVA) | payer BC, MEDICAID, SELFPAY | PROVIDERS: PCP Registered Nurse; Visit Provider Obstetrics & Gynecology | DX: O09.899 Supervision of other high risk pregnancies, unspecified trimester (principal); Z3A.28 28 weeks gestation of pregnancy | CPT/HCPCS: 84315; 85025 ==

== ENCOUNTER → 2023-10-02 15:39 | Outpatient (BNVA) | payer BC, MEDICAID, SELFPAY | PROVIDERS: PCP Registered Nurse; Visit Provider Obstetrics & Gynecology | DX: O09.899 Supervision of other high risk pregnancies, unspecified trimester (principal); Z3A.30 30 weeks gestation of pregnancy | CPT/HCPCS: 82607; 82728; 82746; 83550; 84315 ==

== ENCOUNTER → 2023-10-17 09:14 | Outpatient (BNVA) | payer BC, MEDICAID, SELFPAY | PROVIDERS: PCP Registered Nurse; Visit Provider Nurse Practitioner Women's Health | DX: O09.899 Supervision of other high risk pregnancies, unspecified trimester (principal); O99.019 Anemia complicating pregnancy, unspecified trimester; O34.219 Maternal care for unspecified type scar from previous cesarean delivery; I10 Essential (primary) hypertension; O99.013 Anemia complicating pregnancy, third trimester; O41.8X90 Other specified disorders of amniotic fluid and membranes, unspecified trimester, not applicable or unspecified; O46.8X9 Other antepartum hemorrhage, unspecified trimester; J45.909 Unspecified asthma, uncomplicated; Z3A.32 32 weeks gestation of pregnancy | CPT/HCPCS: 84315; 85025 ==

== ENCOUNTER 2023-11-06 14:00 | Oncology outpatient (recurring) (ONCR) | payer BC, MEDICAID, SELFPAY ==
[2023-10-25 09:08] VITALS: BP 124/79; PULSE 83; RESP 16; TEMP 36.4; O2SAT 98
[2023-10-25] MEDS: iron sucrose 200 MG in sodium chloride 0.9% (100 ml) 100 ML 220 MG IV (09:33)
[2023-10-25 10:17] VITALS: BP 119/78; PULSE 76; RESP 16; TEMP 36.3; O2SAT 98
[2023-10-27 09:37] VITALS: BP 118/68; PULSE 83; RESP 16; TEMP 36.3; O2SAT 97
[2023-10-27] MEDS: iron sucrose 200 MG in sodium chloride 0.9% (100 ml) 100 ML 220 MG IV (09:59)
[2023-10-27 10:39] VITALS: BP 114/76; PULSE 86; RESP 16; TEMP 36.4; O2SAT 98
[2023-10-30 15:31] VITALS: BP 124/74; PULSE 84; RESP 16; TEMP 36.8; O2SAT 98
[2023-10-30] MEDS: iron sucrose 200 MG in sodium chloride 0.9% (100 ml) 100 ML 220 MG IV (15:33)
[2023-10-30 16:17] VITALS: BP 131/72; PULSE 82; RESP 16; TEMP 36.6; O2SAT 96
[2023-11-03 09:07] VITALS: BP 121/73; PULSE 81; RESP 18; TEMP 36.7; O2SAT 98
[2023-11-03] MEDS: iron sucrose 200 MG in sodium chloride 0.9% (100 ml) 100 ML 220 MG IV (09:11)
[2023-11-03 09:50] VITALS: BP 134/80; PULSE 79; RESP 16; TEMP 36.6; O2SAT 97
== END 2023-11-19 23:59 | disposition home or self-care (01) ==
PROVIDERS: PCP Registered Nurse; Visit Provider Internal Medicine Medical Oncology
DX: Z53.9 Procedure and treatment not carried out, unspecified reason (principal)
CPT/HCPCS: 84315; 96365; J1756

== ENCOUNTER → 2023-11-13 08:11 | Outpatient (BNVA) | payer BC, MEDICAID, SELFPAY | PROVIDERS: PCP Registered Nurse; Visit Provider Obstetrics & Gynecology | DX: O09.899 Supervision of other high risk pregnancies, unspecified trimester (principal); O99.013 Anemia complicating pregnancy, third trimester; Z3A.36 36 weeks gestation of pregnancy | CPT/HCPCS: 84315; 85025; 87081 ==

== ENCOUNTER 2023-12-03 08:25 | Inpatient (IN) | payer BC, MEDICAID, SELFPAY ==
[2023-12-03] VITALS (50 sets, daily range): BP systolic 121–163; BP diastolic 57–81; PULSE 59–123; RESP 16; TEMP 36.7–36.9; O2SAT 97–100; BMI 35.4
[2023-12-03] MEDS: lactated ringers 1,000 ML 999 ML IV ×3 (01:45→09:50)
[2023-12-03 01:55] LABS: Basophils % 0.2 %; Eosinophils # 0.1 10^3/uL (0.0-0.8); Eosinophils % 0.6 %; Lymphocytes # 2.8 10^3/uL (0.8-4.8); Lymphocytes % 25.7 %; Mean Corpuscular HGB Conc 32.6 g/dL (30-55); Mean Corpuscular Hemoglobin 25.3 pg (27-33); Mean Corpuscular Volume 77.4 fl (85-98); Mean Platelet Volume 11.1 fL (7.4-10.4); Monocytes # 0.9 10^3/uL (0.2-0.9); Monocytes % 8.3 %; Neutrophils # 7.04 10^3/uL (1.8-7.7); Neutrophils % 64.8 %; Nucleated Red Blood Cells % 0 %; Platelet Count 217 10^3/cmm (157-399); Red Blood Count 4.91 10^6/uL (3.85-5.65); Red Cell Distribution Width 22.2 % (12.1-15.1); White Blood Count 10.86 10^3/uL (3.29-11.43)
--- NOTE | 2023-12-03 03:15 | PC.NURSE ---
Spoke to patient about starting pitocin. Pateint declines pitocin at this time and states that she doesn't want it unless she has to have it. Patient agrees that if she has not made cervical change in 1 hour she will consider pitocin.
[2023-12-03] MEDS: dextrose 5%-lactated ringers 1,000 ML 125 ML IV (04:21)
--- NOTE | 2023-12-03 06:53 | PC.NURSE ---
Spoke with patient about starting pitocin at this time due to no change in cervical check since 418 and disorganized contraction pattern. Patient agreed to start pitocin at this time.
[2023-12-03] MEDS: oxytocin 30 UNIT/500 ML BAG IV (07:26)
--- NOTE | 2023-12-03 08:24 | PM.OPHPUD ---
Labor & Delivery H&P Update Date of Procedure: December 03, 2023 Date H&P Performed: 08/05/22 H&P update information: I have reviewed H&P completed within last 30 days, I have examined patient prior to procedure and Changes to prior documentation as noted here (cervix 5cm, SROM) Admission Diagnosis:
--- NOTE | 2023-12-03 10:27 | P.ANESASSM_ITS ---
Pre-Anesthetic Assessment Height/Weight: Height 1.65 m Weight 96.615 kg Pulse BP Pulse Ox O2 Del Method 64 144/64 100 Room Air 12/03/23 10:17 12/03/23 10:17 12/03/23 02:46 12/03/23 01:43 Preop Diagnosis: labor pain epidural Was Beta Jose Guadalupe taken within 24 hours: N/A Was Clonidine taken within 24 hours: N/A Exam alert, oriented x 3, clear to auscultation bilaterally and regular rate & rhythm Airway Submandibular: within normal limits Cervical ROM: within normal limits Mallampati: Class II Dentition: chipped and full Pulmonary Asthma (history) CV/HEM Anemia and Hypertension None reported Hepatic None reported GI Gastroesophageal Reflux Disease Metabolic None reported Musc/skel Scoliosis Neuropsych None reported Anesthetic Plan ASA status: 2 Anesthesia: Regional (specify below) Risk of > 500 ml blood loss (7ml/kg in children): No Medications/Allergies Home Medications Medication Instructions Recorded Confirmed Last Taken Type pantoprazole 40 mg tablet,delayed See Rx Instructions .Route 05/29/23 12/03/23 Unknown Rx release .COMPLEX #90 tabs ferrous sulfate 325 mg (65 mg 325 mg PO BID #60 tabs 09/19/23 12/03/23 Unknown Rx iron) tablet Allergies Allergy/AdvReac Type Severity Reaction Status Date / Time iodine Allergy Severe ALGY-Anaphy Verified 12/03/23 04:01 laxis Penicillins Allergy Mild ALGY-Hives Verified 12/03/23 04:01 cefdinir Allergy ADR-Vomitin Verified 12/03/23 04:01 g metoclopramide [From Reglan] Allergy ADR-Agitate Verified 12/03/23 04:01 d Current Medications Generic Name Dose Route Start Last Admin Trade Name Freq PRN Reason Stop Dose Admin Lactated Ringer's 1,000 mls @ 999 mls/hr 12/03/23 01:44 12/03/23 03:55 Lactated Ringers IV Infused .Q1H1M PRN Infusion Per L&D Rescitation Protocol Dextrose/Lactated Ringer's 1,000 mls @ 125 mls/hr 12/03/23 01:45 12/03/23 04:21 Dextrose 5%-Lactated Ringers IV 125 mls/hr .Q8H GUILLERMO Administration Oxytocin 30 unit in 500 mls @ 1 mls/hr 12/03/23 03:15 12/03/23 07:26 Pitocin IV 1 milliunit/min .Q24H GUILLERMO 1 mls/hr Administration Protocol 1 MILLIUNIT/MIN PFSH Anesthesia Medical History No pertinent past medical history neghx: htn,dm,thyroid,dvt/pe PCP: Mata Fisher depression Anxiety managed w/o medication; historically tried zoloft without improvement. Has not been on this since 2020. (vaginal after ) Pelvic pain Asthma GERD (gastroesophageal reflux disease) Surgical History History of tonsillectomy and adenoidectomy (~2013) History of section, low transverse (11/20/18) PLTCS. Dx: Nonreassuring FHT. Performed by Dr. Bustillo at [facility] – [place]. Family History Father Hypertension Diabetes Hyperlipidemia Grandmother Diabetes paternal Denies family history of Colon cancer Ovarian cancer Heart disease Breast cancer Uterine cancer Thyroid disease Stroke Social History Smoking and tobacco/nicotine status: never used tobacco/nicotine Female Reproductive History : 8 Data Anesthesia 12/03/23 01:40 Short CBC 12/03/23 Range/Units 01:40 WBC 10.86 (3.29-11.43) 10^3/uL Hgb 12.40 (11.27-16.99) g/dL Hct 38.0 (36-47) % MCV 77.4 L (85-98) fl Plt Count 217 (157-399) 10^3/cmm Neut % (Auto) 64.8 % Neut # (Auto) 7.04 (1.8-7.7) 10^3/uL Blood Bank 12/03/23 01:40 Blood Type A Positive Rho(D) Type Rh positive Antibody Screen Negative Cardiac Studies: 2 No Data to Display
--- NOTE | 2023-12-03 10:45 | PC.NURSE ---
This nurse called to bedside by Norberto Butts RN at 1040. Patient was noted to be complete and involuntarily pushing. Mckay Graham RN called Dr. Goel at 1037 and he stated he was in route to the hospital. Norberto Butts RN was encouraging the patient to breath through the contractions but patient was unable to and began to bear down. A large crown was noted at 1041. Patient continued to bear down and the head was delivered at 1042. Norberto Butts RN bulb suctioned the nose and mouth at the perineum. This nurse and Norberto Butts RN encouraged the patient to push so that the shoulders could deliver. Despite adequate pushing effort, the shoulders did not deliver. This RN and Mckay Graham RN placed the patient in McRobert's at 1043 and continued to urge the patient to push. Norberto Butts RN remained at the perineum to support infants head. Suprapubic pressure was applied by Mckay Graham RN while this nurse and Clarice Cano CST performed McRobert's maneuver simultaneously. Dayanna Ramirez RN arrived at bedside to assist. Patient was encouraged to continue pushing and the anterior shoulder delivered at 1045 along with the rest of the infant. Infant was placed on bed and noted to be floppy and had no respiratory effort. was warmed, dried, and stimulated and the cord was clamped and cut and this nurse immediately transferred baby to the preheated radiant warmer. 1 minute vitals were 160s heart rate and no respiratory effort. PPV was initiated at 1 MOL. Pulse ox was placed on infant. Infant was de-leed and 4 ml of clear fluid was suctioned. Infant began to have spontaneous respirations and PPV was discontinued at 2 MOL. maintained target oxygen saturations, had good tone, and a strong cry at 3 MOL. Apgars of 2 at 1 MOL and [address] Obrien at bedside at [address] Goel notified of patient being 9 cm and involuntarily pushing at 1037. Dr. Goel notified of complete and involuntarily pushing at 1040. Dr. Goel notified of infant delivery at 1047. Dr. Goel arrived at bedside at 1057.
[2023-12-03] MEDS: fentaNYL 50 mcg/mL INJ 2mL IVP (11:01)
[2023-12-03] MEDS: lidocaine 2% INJ 20 mL INJECTION (11:06)
--- NOTE | 2023-12-03 11:26 | PM.DELIVERY ---
Delivery Note: Date of delivery: December 03, 2023 Pre-delivery diagnoses: Term Previous delivery Post-delivery diagnoses: Term delivered Vaginal after Procedure: Spontaneous vaginal delivery Delivering Physician: Andrews Goel MD Estimated blood loss (mL): 300 Delivery: The patient called the nurse and told her she feeling like pushing, she was noted to be complete and pushing, so was placed in the dorsal lithotomy position. Pt. noted not to have epidural anesthesia. She had a precipitous delivery at [] the patient delivered a viable term male infant weighing 3900 g with scores of 8 and 9 at one and five minutes, respectively. The vertex was delivered spontaneously over intact perineum. The nurse refers the head delivered spontaneously in the NOHEMY position, over an intact perineum. A nuchal cord was noted, and delivered through. She experienced a brief shoulder dystocia that was resolved with McRobert maneuver by the nurses then anterior shoulder delivered and the posterior shoulder followed. The remainder of the infant was easily delivered. The oropharynx and nasopharynx was bulb suctioned. Meconium was noted. The was noted to have spontaneous cry and spontaneous movement of all four extremities. The cord was clamped x 2 and cut and noted to have 2 arteries and one vein. The was passed to the mother's abdomen where nursing personnel were in attendance. The placenta delivered intact spontaneously and the uterus was explored. 20 units of Pitocin was placed in the IV bag to firm the uterus. Examination of the cervix and vaginal vault did not reveal any lacerations. Examination of the perineum showed small second-degree laceration. The laceration was infiltrated with 2% lidocaine with epinephrine and was repaired with 3-0 Vicryl in the normal fashion in a running non locking fashion to reapproximate the laceration in layers. The vaginal pack was then removed. The patient tolerated this procedure well, and recovered in L&D with her in their LDR room. All sponge and needle counts were correct. History History History 8 Term 2 1 Miscarriages/Ectopic 4 Living Children 3 A&P Assessment and plan (1) Term delivered: (2) (vaginal after ): Plan Good and stable Coding Level of Care Code Acute Code for Chg Fwd Diagnoses Term delivered O80 (vaginal after ) O34.219
[2023-12-03] MEDS: benzocaine-menthol 78 gm Canister 1 SPRAY TOPICAL (11:58)
[2023-12-03] MEDS: HYDROcodone-acetaminophen 5-325 mg Tablet PO ×2 (12:29→17:31)
[2023-12-03] MEDS: ibuprofen 800 mg tablet PO ×2 (15:22→20:35)
[2023-12-03] MEDS: docusate sodium 100 mg Capsule PO (17:32)
[2023-12-03 23:29] LABS: Hematocrit 32.2 % (36-47); Mean Corpuscular HGB Conc 31.4 g/dL (30-55); Mean Corpuscular Volume 79.7 fl (85-98); Platelet Count 198 10^3/cmm (157-399); Red Blood Count 4.04 10^6/uL (3.85-5.65); Red Cell Distribution Width 21.9 % (12.1-15.1); White Blood Count 13.57 10^3/uL (3.29-11.43)
[2023-12-04 01:01] VITALS: BP 123/72; PULSE 76; RESP 16; TEMP 36.7; O2SAT 99
[2023-12-04 04:30] VITALS: BP 130/75; PULSE 77; RESP 16; TEMP 36.7; O2SAT 98
[2023-12-04] MEDS: HYDROcodone-acetaminophen 5-325 mg Tablet PO ×2 (04:35→11:22)
[2023-12-04] MEDS: docusate sodium 100 mg Capsule PO (09:41)
[2023-12-04] MEDS: ibuprofen 800 mg tablet PO (09:41)
[2023-12-04] MEDS: PRENATAL VIT NO.130/IRON/FOLIC 1 EACH TABLET PO (09:41)
[2023-12-04] MEDS: pantoprazole DR 40 mg Tablet PO (09:41)
[2023-12-04 09:44] VITALS: BP 129/82; PULSE 80; TEMP 36.7; O2SAT 97
--- NOTE | 2023-12-04 12:53 | PM.OBGYDC ---
Discharge Providers MANAGER VISUAL Date of Admission: 12/03/23 08:25 Date of Discharge: 12/04/23 Attending Provider at Admission: Andrews Jalloh MD Attending Provider at Discharge: Andrews Jalloh MD Primary MANAGER VISUAL: Andrews Jalloh MD Primary Care Provider: RAYMOND Xie Diagnoses at Discharge Discharge Diagnosis (1) Term delivered: Status: Acute (2) (vaginal after ): Status: Inactive Reason for Visit Reason for Visit: Possible ROM Hospital Course Hospital Course Ms. August is a 28 year old established patient with LMP is unknown, RENETTA 12/07/2023, based on 6 week sonogram, placing her at 39-3/7 weeks came to labor and delivery in active labor with rupture of membranes. She was admitted to labor and delivery and progressed to have a precipitous spontaneous vaginal delivery, complicated by shoulder dystocia. observation was uneventful. Tolerating diet well. Ambulating without difficulty. She is afebrile and hemodynamically stable day 1. She was counseled regarding pelvic rest for 6 weeks (no sex, no tampons, no vaginal douches). Return to the emergency room if any fever, increased bleeding or pain. Information Peripartum Data: Delivery Method: Vaginal Physical Exam Narrative: GA; alert and oriented x 3 HEENT: normal Breasts: engorged Nipples - skin intact Lungs; clear to auscultation Heart: regular rhythm, no murmurs. Abd: Appropriately tender. BS+. Uterine fundus below umbilicus. No Fundal Tenderness. Perineum: normal lochia. Extremities: no edema, no cyanosis, no tenderness. History History History 8 Term 2 1 Miscarriages/Ectopic 4 Living Children 3 Discharge Data Studies Completed and Pending Laboratory Results WBC 13.57 10^3/uL (3.29-11.43) H 12/03/23 22:55 RBC 4.04 10^6/uL (3.85-5.65) 12/03/23 22:55 Hgb 10.10 g/dL (11.27-16.99) L 12/03/23 22:55 Hct 32.2 % (36-47) L 12/03/23 22:55 MCV 79.7 fl (85-98) L 12/03/23 22:55 MCH 25.0 pg (27-33) L 12/03/23 22:55 MCHC 31.4 g/dL (30-55) 12/03/23 22:55 RDW 21.9 % (12.1-15.1) H 12/03/23 22:55 Plt Count 198 10^3/cmm (157-399) 12/03/23 22:55 MPV 12.0 fL (7.4-10.4) H 12/03/23 22:55 Neut % (Auto) 64.8 % 12/03/23 01:40 Lymph % (Auto) 25.7 % 12/03/23 01:40 Waldo % (Auto) 8.3 % 12/03/23 01:40 Eos % (Auto) 0.6 % 12/03/23 01:40 Baso % (Auto) 0.2 % 12/03/23 01:40 Neut # (Auto) 7.04 10^3/uL (1.8-7.7) 12/03/23 01:40 Lymph # (Auto) 2.8 10^3/uL (0.8-4.8) 12/03/23 01:40 Waldo # (Auto) 0.9 10^3/uL (0.2-0.9) 12/03/23 01:40 Eos # (Auto) 0.1 10^3/uL (0.0-0.8) 12/03/23 01:40 Baso # (Auto) 0.0 10^3/uL (0.0-0.1) 12/03/23 01:40 Nucleated RBC % (auto) 0 % 12/03/23 01:40 Nucleated RBCs # 0.0 /100WBC 12/03/23 01:40 Blood Type A Positive 12/03/23 01:40 Rho(D) Type Rh positive 12/03/23 01:40 Antibody Screen Negative 12/03/23 01:40 Vitals Last Vital Signs Temp 98.0 F 12/04/23 09:44 Pulse 80 12/04/23 09:44 Resp 16 12/04/23 04:30 BP 129/82 12/04/23 09:44 Pulse Ox 97 12/04/23 09:44 O2 Del Method Room Air 12/04/23 09:44 Results Labs OB ([facility]): Obstetrics US 05/02/22 Obstetrics US/Biophysical Profile 08/05/22 Blood Type A Positive 12/03/23 Antibody Screen Negative 12/03/23 Hct 32.2 % (36-47) L 12/03/23 Hgb 10.10 g/dL (11.27-16.99) L 12/03/23 Rho(D) Type Rh positive 12/03/23 Plt Count 198 10^3/cmm (157-399) 12/03/23 Hep Bs Antigen Non-reactive (Nonreactive) 05/11/23 Hepatitis C Antibody Non-reactive (Nonreactive) 05/11/23 Rubella IgG Antibody 17.8 IU/mL (0.0-10.0) H 05/11/23 RPR Nonreactive (Nonreactive) 05/11/23 HIV 1&2 Ab & HIV 1 Ag Non-reactive (Non-Reactiv) 05/11/23 TSH 0.62 uIU/mL (0.27-4.20) 07/01/22 Free T4 0.90 ng/dL (0.82-1.77) 06/29/22 C.trachomatis RNA (TMA) Not detected (NOT DETECTED) 05/29/23 N.gonorrhoeae RNA (TMA) Not detected (NOT DETECTED) 05/29/23 T. vaginalis Amp RNA Not detected (NOT DETECTED) 05/29/23 Chlamydia/GC Comment See note 05/29/23 Cystic Fibrosis Screen Negative 01/20/22 Glucose 1 Hr 50 gm 185 mg/dL (85-140) H 02/07/20 Gest Glucose Tolerance 86 mg/dL (70-139) 08/21/23 Uric Acid 6.0 mg/dL (2.4-5.7) H 04/14/20 Progesterone 15.41 ng/mL 08/21/19 Ser , Semi-Qnt 29716.00 mIU/mL 04/10/23 HCG, Qual Positive (Negative) H 12/01/21 Urine Opiates Screen Negative ng/mL (Negative) 05/11/23 Ur Barbiturates Screen Negative ng/mL (Negative) 05/11/23 Ur Phencyclidine Scrn Negative ng/mL (Negative) 05/11/23 Ur Amphetamines Screen Negative ng/mL (Negative) 05/11/23 U Benzodiazepines Scrn Negative ng/mL (Negative) 05/11/23 Urine Cocaine Screen Negative ng/mL (Negative) 05/11/23 U Marijuana (THC) Screen Negative ng/mL (Negative) 05/11/23 Micro Urine Specimen 07/05/23 Pap Smear Interpret See note 01/20/22 Discharge Plan Discharge Patient Disposition: Home Condition: Stable Prescriptions: New ibuprofen 800 mg tablet 800 mg PO TID PRN (Reason: pain) Qty: 60 0RF ferrous sulfate [Iron (ferrous sulfate)] 325 mg (65 mg iron) tablet 325 mg PO BID Qty: 60 0RF docusate sodium [Colace] 100 mg capsule 100 mg PO BID Qty: 60 0RF acetaminophen 325 mg capsule 325 mg PO Q4H PRN (Reason: fever or pain) Qty: 60 0RF Continued pantoprazole 40 mg tablet,delayed release (DR/EC) See Rx Instructions .ROUTE .COMPLEX Qty: 90 0RF Dose Instruction: TAKE 1 TABLET BY MOUTH DAILY Rx Instructions: TAKE 1 TABLET BY MOUTH DAILY ferrous sulfate 325 mg (65 mg iron) tablet 325 mg PO BID Qty: 60 4RF Discharge Orders: Discharge Order (Routine); Ordered 12/04/23 Ordered By: Andrews Jalloh Referrals: Andrews Jalloh MD [Physician] - 01/15/24 3:00 pm (PATIENT TO SEE DR. JALLOH FOR SIX WEEK APPOINTMENT ON December AT 3:00PM) Discharge Diet: Usual diet Discharge Activity: Limit activity as instructed Patient Instructions: Depression (DC), Bleeding (DC), Preeclampsia and Eclampsia After Delivery (GEN), Hemorrhage (DC), OB Discharge Report, OB Food/Drug Interaction Guide, OB Care at Home, Opioid Safety Activity Restrictions/Additional Instructions: 1. Please call [facility] on next working day to make your appointment in 6 weeks. 2. Please stay home until you come back to the clinic on first post-hospatilization check up. 3. Please follow instructions on your medications CAREFULLY. 4. If you have abdominal incision, do not cover it unless dressing is necessary because of drainage. OK to shower, but avoid bath. Leave steri-strips until they fall off. If they are still on one week after surgery, you may remove them. 5. If you had vaginal surgery or vaginal repair, Dr. Jalloh may instruct you to take SITZ bath. 6. Yellow, blood tinged odorous vaginal discharge is usually normal after hysterectomy or vaginal surgeries. 7. No SEXUAL INTERCOURSE, tampons, or douches until you are completely released from the post-operative care. 8. Avoid constipation by eating right and maybe using some Metamucil or Milk of Magnesia. 9. All prescription refills are given during the working hours. Please do no wait till it runs out. Call the clinic at [phone] before your medication runs out. The clinic will get in touch with your doctor to prescribe medications if necessary. 10. Please remain within 40 mile radius from our hospital because emergencies do happen now and then during the post-operative period. 11. If you have stairs at home, take one step at a time slowly and minimize the number of trips. It helps to stay in one floor for the next few days. No lifting except what you can lift by one hand until you are released from the post-operative care. 12. Driving is discouraged until you are well healed. It may be 3-4 weeks before you feel strong enough to drive. You should be able to turn and look through the rear window without pain and you should be able to push the brake pedal very hard without pain before you drive. No fast rules, but SAFETY should be your primary concern. DO NOT drive if you are on sedating medications such as narcotics. 13. Call the clinic (during working hours) to make urgent appointment or go to the Emergency room, if any of the following occurs: i. Vaginal bleeding becomes heavy, more than a period. ii. Incision becomes red and sore, or drains pus. iii. Your TEMPERATURE is over 100.4F or you have chill. iv. IV site becomes red and swollen (a little ``knot?? is usually OK) v. Persistent nausea and vomiting vi. Persistent constipation or diarrhea vii. Rash or allergic reaction to medications. Discharge Attestations MANAGER VISUAL Time Spent in Discharge Care*: greater than 30 min Coding Level of Care Code Acute Code for Chg Fwd Diagnoses Term delivered O80 (vaginal after ) O34.219
[2023-12-04 13:30] VITALS: BP 134/81; PULSE 73; TEMP 36.6; TEMP 37.1; O2SAT 98
== END 2023-12-04 13:40 | disposition home or self-care (01) | DRG 807 ==
LOC: OPOB 10:33
PROVIDERS: Admitting Provider Obstetrics & Gynecology; PCP Registered Nurse; Visit Provider Obstetrics & Gynecology
DX: O99.62 Diseases of the digestive system complicating childbirth (principal); Z37.0 Single live birth; K92.89 Other specified diseases of the digestive system; O69.81X0 Labor and delivery complicated by cord around neck, without compression, not applicable or unspecified; O77.0 Labor and delivery complicated by meconium in amniotic fluid; O70.1 Second degree perineal laceration during delivery; O66.0 Obstructed labor due to shoulder dystocia; Z3A.39 39 weeks gestation of pregnancy
CPT/HCPCS: 36415; 59025; 59409; 83986; 85025; 85027; 86850; 86900; 96374; 99211; J2590; J3010; J7120; J7121

== ENCOUNTER 2023-12-09 18:45 | Emergency (ER) | payer BC, MEDICAID, SELFPAY ==
[2023-12-09 18:48] VITALS: BP 195/110; PULSE 62; RESP 17; TEMP 36.8; O2SAT 99; BMI 35.4
--- NOTE | 2023-12-09 19:00 | CTR_ITS ---
PROCEDURE INFORMATION: Exam: CT Head Without Contrast Exam date and time: 12/09/2023 7:31 PM Age: 28 years old Clinical indication: Pain; Headache; Patient HX: C/O CONTRERAS with hypertension; Additional info: Headache new onset TECHNIQUE: Imaging protocol: Computed tomography of the head without contrast. Axial, coronal and sagittal reformatted images were created and reviewed. Radiation optimization: All CT scans at this facility use at least one of these dose optimization techniques: automated exposure control; mA and/or kV adjustment per patient size (includes targeted exams where dose is matched to clinical indication); or iterative reconstruction. COMPARISON: CT head wo con* [id number] 08/02/2017 3:09 AM RADIATION DOSE METRICS: Total DLP (mGy-cm): 978.58 FINDINGS: Brain: No CT evidence of acute intracranial hemorrhage or acute territorial infarction. No significant mass effect or midline shift. Basal cisterns patent. Cerebral ventricles: Normal in size and configuration. Paranasal sinuses: Mild polypoid left sphenoid sinus mucosal thickening. No air-fluid levels. Mastoid air cells: Grossly unremarkable. Bones: Unremarkable. No acute fracture. Soft tissues: Grossly unremarkable. CT/CT head wo con* [id number] IMPRESSION: 1. No CT evidence of acute intracranial pathology. 2. Additional findings, as above.
--- NOTE | 2023-12-09 19:03 | ECG_ITS ---
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 Measurements Intervals Sharon Rate: 61 P: 35 OK: 153 QRS: 42 QRSD: 82 T: 41 QT: 420 QTc: 424 Interpretive Statements SINUS RHYTHM POSSIBLE LEFT ATRIAL ENLARGEMENT [-0.1mV P-WAVE IN V1/V2] No previous ECG available for comparison Electronically Signed On 12-10-2023 7:08:57 CDT by Hoang Chaney M.D. [email or web address]
[2023-12-09 19:04] VITALS: BP 180/101; PULSE 58; RESP 18; O2SAT 98
[2023-12-09 19:15] LABS: Glucose Point of Care 90 mg/dL (70-110)
[2023-12-09] MEDS: magnesium sulfate premix 2 GM/50 ML PIGGYBACK IV (19:17)
[2023-12-09] MEDS: sodium chloride 0.9% 500 ML IV (19:19)
[2023-12-09 19:20] LABS: Amphetamines Screen Urine Negative (Negative); Barbiturates Screen Urine Negative (Negative); Benzodiazepines Screen Urine Negative (Negative); Cocaine Screen Urine Negative (Negative); Opiate Screen Urine Negative (Negative); PCP Screen Urine Negative (Negative); THC Screen Urine Negative (Negative)
[2023-12-09 19:22] LABS: Basophils % 0.2 %; Eosinophils # 0.1 10^3/uL (0.0-0.8); Eosinophils % 1.3 %; Hematocrit 35.7 % (36-47); Lymphocytes # 2.8 10^3/uL (0.8-4.8); Lymphocytes % 33.7 %; Mean Corpuscular HGB Conc 31.9 g/dL (30-55); Mean Corpuscular Hemoglobin 25.3 pg (27-33); Mean Corpuscular Volume 79.2 fl (85-98); Mean Platelet Volume 10.7 fL (7.4-10.4); Monocytes # 0.5 10^3/uL (0.2-0.9); Monocytes % 6.2 %; Neutrophils # 4.74 10^3/uL (1.8-7.7); Nucleated Red Blood Cells % 0 %; Platelet Count 263 10^3/cmm (157-399); Red Blood Count 4.51 10^6/uL (3.85-5.65); Red Cell Distribution Width 20.7 % (12.1-15.1); White Blood Count 8.19 10^3/uL (3.29-11.43)
[2023-12-09] MEDS: ketorolac 30 mg/mL INJ IVP (19:22)
[2023-12-09] MEDS: diphenhydrAMINE 50 mg/mL SDV 1mL 25 MG IVP (19:22)
[2023-12-09] MEDS: ondansetron 2 mg/ML SDV 2 mL 4 MG IVP (19:22)
[2023-12-09 19:42] LABS: Troponin(5th) Baseline < 6 ng/L (0-10)
[2023-12-09 19:44] LABS: Add Urine Microscopic? YES; Bacteria Urine TRACE /hpf; Bilirubin Urine Neg (Negative); Blood Urine 2+ (Negative); Glucose Urine UA Norm (Normal); Ketones Urine Negative (Negative); Leukocyte Esterase Urine Negative (Negative); Nitrate Urine Negative (Negative); Protein Urine Neg (Negative); RBC Urine 0-4 /hpf (0-2); Squamous Epithelial Cell Urine 0-4 /hpf (0-5); Urine Appearance Clear (CLEAR); Urine Color Yellow (Yellow); Urobilinogen Urine Neg (Negative); WBC Urine 0-4 /hpf (0-5); pH Urine 7 (5-7)
[2023-12-09 19:45] VITALS: BP 161/81; RESP 14; O2SAT 98
--- NOTE | 2023-12-09 19:46 | ED_ITS ---
HPI - Headache 2 General: Chief Complaint: Headache Stated Complaint: Albino sent BP high headache blurry vision Time Seen by Provider: 12/09/23 18:58 History of Present Illness: 28-year-old female that is ap proximately 1 week Ab0 presents ER chief complaint of ongoing headache patient endorses a prior history of hypertension she reports her blood pressure has been running consistently high 150s 170s over 100s patient does endorse a headache with that at this time reports no chest pain or shortness of breath patient does not endorse any known history of prior preeclampsia she does report with her prior they did require to place her on lisinopril that she discontinued upon finding out she was with a second per currently patient is on no blood pressure management patient presents ER chief complaint of blurred vision as well as headache looking the back of the head patient does not endorse any recent trauma or injury she reports no prior history of migraines who is reports some mild nausea associated with the headache with no other associated symptoms. 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 Associated symptoms: Deny chest pain, fever(s), malaise, nausea, rash or vomiting Review of Systems 2 General: Reports: 10 or more systems reviewed and unremarkable except in HPI and below Const: Denies: fever(s), chills, fatigue or malaise Eyes: Reports: change in vision and blurry vision Card: Denies: chest pain or palpitations Resp: Denies: dyspnea or productive cough GI: Denies: abdominal pain, nausea or vomiting : Denies: flank pain Musc: Denies: extremity pain or extremity swelling Skin/Breast: Denies: rash or pruritus Neuro: Reports: headache(s) Psych: Denies: anxiety or depression Jose/Lymph: Denies: easy bleeding All/Imm: Denies: urticaria, throat swelling or facial swelling PFSH ED 2 PFSH: Medical History No pertinent past medical history neghx: htn,dm,thyroid,dvt/pe PCP: Mata Fisher depression Anxiety managed w/o medication; historically tried zoloft without improvement. Has not been on this since 2020. (vaginal after ) Pelvic pain Asthma GERD (gastroesophageal reflux disease) Surgical History History of tonsillectomy and adenoidectomy (~2013) History of section, low transverse (11/20/18) PLTCS. Dx: Nonreassuring FHT. Performed by Dr. Bustillo at [facility] [place]. Family History Father Hypertension Diabetes Hyperlipidemia Grandmother Diabetes paternal Denies family history of Colon cancer Ovarian cancer Heart disease Breast cancer Uterine cancer Thyroid disease Stroke Social History Smoking and tobacco/nicotine status: never used tobacco/nicotine Physical Exam 2 Const: COMMON NORMALS: no acute distress, patient oriented x3 and healthy appearing HENMT: COMMON NORMALS: normocephalic and atraumatic HEAD & SCALP: n ormocephalic and atraumatic Eye: COMMON NORMALS: Equal, round and reactive pupils present and EOMs intact bilaterally PUPIL: Yes Equal, round and reactive pupils present Neck/C-Spine: COMMON NORMALS: full ROM, supple and no JVD Lymph: LYMPHATIC: no lymphadenopathy noted Chest: COMMONS NORMALS: normal inspection of the chest and normal palpation of entire chest wall Resp: COMMON NORMALS: normal respiratory effort, No retractions and clear to auscultation bilaterally EFFORT & INSPECTION: Yes able to speak in complete sentences and Yes symmetric chest movement AUSCULTATION: clear to auscultation bilaterally Cardio: COMMON NORMALS: no JVD, regular rate and regular rhythm RATE: r egular rate RHYTHM: regular rhythm GI: COMMON NORMALS: Normal to inspection, nondistended, normoactive bowel sounds present, Soft to palpation and non-tender INSPECTION: Yes normal to inspection PALPATION: Yes Soft to palpation : COMMON NORMALS: Yes no CVA tenderness BLADDER/KIDNEY EXAM: Yes no CVA tenderness Back/Pelvis: COMMON NORMALS: no CVA tenderness Extremity: COMMON NORMALS: normal to inspection and full ROM Neuro: COMMON NORMALS: patient oriented x3, CN's II-XII intact bilaterally, moves all extremities and no focal motor deficits Psych: COMMON NORMALS: mental status grossly normal, Normal thought process present, cooperative and normal affect THOUGHT PROCESS: Normal thought process present Skin: COMMON NORMALS: no rashes or lesions noted GENERAL SKIN EXAM: no rashes or lesions noted Course 2 Vital Signs: Vital signs: Vital Signs Temperature 98.3 F 12/09/23 18:48 Pulse Rate 60 12/09/23 20:00 Respiratory Rate 15 12/09/23 20:00 Blood Pressure 161/90 12/09/23 20:00 Pulse Oximetry 99 12/09/23 20:00 Oxygen Delivery Me thod Room Air 12/09/23 20:00 MDM - Headache Medical Decision Making No focal neurodeficits appreciated we will be obtaining CAT scan imaging and lab work, encourage this patient will be provide the patient's medication for her headache will continue to follow watch her blood pressure very carefully may need to reinitiate additional medications for it. Underlying concerns of hypertensive emergency gestational hypertension as well as eclampsia is prominent we will continue to follow with following the patient's liver enzymes etc. Patient's liver enzymes came back reassuring patient have a slightly elevated proBNP of 700 discussed patient's case with Dr. Solorio the patient's SHAREPOINT DEVELOPER that recommend start the patient back on lisinopril Her lowest dose that she was taking before and which also encouraged the patient to further follow-up with him in the office the next week for further evaluation and management. Lab Data 12/09/23 19:10 12/09/23 19:[address] 12/09/23 19:00 IMPRESSION: 1. No CT evidence of acute intracranial pathology. 2. Additional findings, as above. Laboratory Results WBC 8.19 10^3/uL (3.29-11.43) 12/09/23 19:10 RBC 4.51 10^6/uL (3.85-5.65) 12/09/23 19:10 Hgb 11.40 g/dL (11.27-16.99) 12/09/23 19:10 Hct 35.7 % (36-47) L 12/09/23 19:10 MCV 79.2 fl (85-98) L 12/09/23 19:10 MCH 25.3 pg (27-33) L 12/09/23 19:10 MCHC 31.9 g/dL (30-55) 12/09/23 19:10 RDW 20.7 % (12.1-15.1) H 12/09/23 19:10 Plt Count 263 10^3/cmm (157-399) 12/09/23 19:10 MPV 10.7 fL (7.4-10.4) H 12/09/23 19:10 Neut % (Auto) 58.0 % 12/09/23 19:10 Lymph % (Auto) 33.7 % 12/09/23 19:10 [place] % (Auto) 6.2 % 12/09/23 19:10 Eos % (Auto) 1.3 % 12/09/23 19:10 Baso % (Auto) 0.2 % 12/09/23 19:10 Neut # (Auto) 4.74 10^3/uL (1.8-7.7) 12/09/23 19:10 Lymph # (Auto) 2.8 10^3/uL (0.8-4.8) 12/09/23 19:10 [place] # (Auto) 0.5 10^3/uL (0.2-0.9) 12/09/23 19:10 Eos # (Auto) 0.1 10^3/uL (0.0-0.8) 12/09/23 19:10 Baso # (Auto) 0.0 10^3/uL (0.0-0.1) 12/09/23 19:10 Nucleated RBC % (auto) 0 % 12/09/23 19:10 Nucleated RBCs # 0.0 /100WBC 12/09/23 19:10 PT 12.40 SECONDS (12.1-14.9) 12/09/23 19:10 INR 0.90 (0.8-1.2) 12/09/23 19:10 Sodium 141 mmol/L (136-145) 12/09/23 19:10 Potassium 4.1 mmol/L (3.5-5.1) 12/09/23 19:10 Chloride 104 mmol/L (98-107) 12/09/23 19:10 Carbon Dioxide 24 mmol/L (22-29) 12/09/23 19:10 Anion Gap 17.1 (5-19) 12/09/23 19:10 BUN 12 mg/dL (6-20) 12/09/23 19:10 Creatinine 0.7 mg/dL (0.5-0.9) 12/09/23 19:10 GFR Calculation 100.4 mL/min (90-130) 12/09/23 19:10 Glucose 80 mg/dL (65-115) 12/09/23 19:10 POC Glucose 90 mg/dL (70-110) 12/09/23 19:10 Calculated Osmolality 291 mOsm/kg (285-295) 12/09/23 19:10 Calcium 8.8 mg/dL (8.5-10.5) 12/09/23 19:10 Total Bilirubin 0.2 mg/dL (0.15-1.2) 12/09/23 19:10 AST 10 U/L (0-32) 12/09/23 19:10 ALT 13 U/L (0-33) 12/09/23 19:10 Alkaline Phosphatase 116 U/L (35-105) H 12/09/23 19:10 Troponin T Baseline < 6 ng/L (0-10) 12/09/23 19:10 C-Reactive Protein 21.5 mg/L (0.0-4.9) H 12/09/23 19:10 NT-Pro-B Natriuret Pep 753 pg/mL (0-125) H 12/09/23 19:10 Total Protein 6.5 g/dL (6.6-8.7) L 12/09/23 19:10 Albumin 3.9 g/dL (3.5-5.2) 12/09/23 19:10 Globulin 2.6 g/dL (1.3-4.6) 12/09/23 19:10 Urine Color Yellow (Yellow) 12/09/23 19:01 Urine Appearance Clear (CLEAR) 12/09/23 19:01 Urine pH 7 (5-7) 12/09/23 19:01 Ur Specific [place] 1.000 (1.005-1.030) L 12/09/23 19:01 Urine Protein Neg (Negative) 12/09/23 19:01 Urine Glucose (UA) Norm (Normal) 12/09/23 19: Urine Ketones Negative (Negative) 12/09/23 19: Urine Blood 2+ (Negative) H 12/09/23 19:01 Urine Nitrate Negative (Negative) 12/09/23 19:01 Urine Bilirubin Neg (Negative) 12/09/23 19: Urine Urobilinogen Neg mg/dL (Negative) 12/09/23 19: Ur Leukocyte Esterase Negative (Negative) 12/09/23 19:01 Urine RBC 0-4 /hpf (0-2) H 12/09/23 19:01 Urine WBC 0-4 /hpf (0-5) H 12/09/23 19:01 Ur Squamous Epith Cells 0-4 /hpf (0-5) H 12/09/23 19:01 Amorphous Sediment Not Reportable 12/09/23 19:01 Urine Bacteria Trace /hpf (NONE) 12/09/23 19:01 Urine Opiates Screen Negative ng/mL (Negative) 12/09/23 19:01 Ur Barbiturates Screen Negative ng/mL (Negative) 12/09/23 19:01 Ur Phencyclidine Scrn Negative ng/mL (Negative) 12/09/23 19:01 Ur Amphetamines Screen Negative ng/mL (Negative) 12/09/23 19:01 U Benzodiazepines Scrn Negative ng/mL (Negative) 12/09/23 19:01 Urine Cocaine Screen Negative ng/mL (Negative) 12/09/23 19:01 U Marijuana (THC) Screen Negative ng/mL (Negative) 12/09/23 19:01 All radiology interpretation(s) finalized by discharge ED provider radiology interpretation(s): Unremarkable per radiology Discharge Plan Discharge Patient Disposition: Home Clinical Impression: Headache due to hypertension Condition: Stable Prescriptions: New lisinopril 10 mg tablet 10 mg PO DAILY Qty: 30 0RF No Action pantoprazole 40 mg tablet,delayed release (DR/EC) See Rx Instructions .ROUTE .COMPLEX Qty: 90 0RF Dose Instruction: TAKE 1 TABLET BY MOUTH DAILY Rx Instructions: TAKE 1 TABLET BY MOUTH DAILY ferrous sulfate 325 mg (65 mg iron) tablet 325 mg PO BID Qty: 60 4RF nifedipine 30 mg tablet extended release 30 mg PO BID Qty: 60 0RF ibuprofen 800 mg tablet 800 mg PO TID PRN (Reason: pain) Qty: 60 0RF Iron (ferrous sulfate) 325 mg (65 mg iron) tablet 325 mg PO BID Qty: 60 0RF Colace 100 mg capsule 100 mg PO BID Qty: 60 0RF acetaminophen 325 mg capsule 325 mg PO Q4H PRN (Reason: fever or pain) Qty: 60 0RF Discharge Orders: Discharge ED (Routine); Ordered 12/09/23 Ordered By: Cipriano Galdamez Referrals: Andrews Goel MD [Physician] - 4-7 days Clair Fisher FNP [Primary Care Provider] - 1-3 days Discharge Diet: Low Salt Discharge Activity: Increase activity as tolerated Patient Instructions: Hypertension (ED) Activity Restrictions/Additional Instructions: Please further follow-up with your doctor in the next 1 week take medication as prescribed in which please return the interim if any of your symptoms persist or worsen if your headache comes back on you can take ibuprofen up to 600 mg [id number] every 6 hours for breakthrough pain and or discomfort. Coding Level of Care Code ED Weigher Packing for Jovanna Nichole
[2023-12-09 19:53] LABS: Alanine Aminotransferase 13 U/L (0-33); Albumin Level 3.9 g/dL (3.5-5.2); Alkaline Phosphatase 116 U/L (35-105); Anion Gap 17.1 (5-19); Aspartate Amino Transferase 10 U/L (0-32); Blood Urea Nitrogen 12 mg/dL (6-20); C Reactive Protein 21.5 mg/L (0.0-4.9); Calcium 8.8 mg/dL (8.5-10.5); Carbon Dioxide 24 mmol/L (22-29); Chloride 104 mmol/L (98-107); Creatinine Clr Calc Pharmacy 138.8266; Globulin 2.6 g/dL (1.3-4.6); Glomerular Filtration Rate 100.4 mL/min (90-130); Glucose 80 mg/dL (65-115); NT Pro B Type Natriuretic Pept 753 pg/mL (0-125); Osmolality Calculated 291 mOsm/kg (285-295); Potassium 4.1 mmol/L (3.5-5.1); Sodium 141 mmol/L (136-145); Total Bilirubin 0.2 mg/dL (0.15-1.2); Total Protein 6.5 g/dL (6.6-8.7)
[2023-12-09 20:00] VITALS: BP 161/90; PULSE 60; RESP 15; O2SAT 99
[2023-12-09 21:15] VITALS: BP 150/84; PULSE 62; RESP 15; O2SAT 97
== END 2023-12-09 21:21 | disposition home or self-care (01) ==
PROVIDERS: Emergency Provider Emergency Medicine; PCP Registered Nurse
DX: I10 Essential (primary) hypertension (principal); R51.9 Headache, unspecified
CPT/HCPCS: 36416; 70450; 80053; 80306; 81001; 82962; 83880; 84484; 85025; 85610; 86140; 93005; 96365; 96375; 99285; J1200; J1885; J2405; J3475; J7040

== ENCOUNTER → 2023-12-28 10:34 | Outpatient (BNVA) | payer BC, MEDICAID, SELFPAY | PROVIDERS: PCP Registered Nurse; Visit Provider Registered Nurse | DX: I10 Essential (primary) hypertension (principal) | CPT/HCPCS: 80053; 83880; 85025; 86140 ==

== ENCOUNTER → 2024-09-13 09:55 | Outpatient (BNVA) | payer SELFPAY | PROVIDERS: PCP Registered Nurse; Visit Provider Nurse Practitioner Women's Health | DX: N91.2 Amenorrhea, unspecified (principal); Z34.90 Encounter for supervision of normal pregnancy, unspecified, unspecified trimester | CPT/HCPCS: 81025; 84702 ==

== ENCOUNTER → 2024-09-25 12:25 | Outpatient (BNVA) | payer SELFPAY | PROVIDERS: PCP Registered Nurse; Visit Provider Nurse Practitioner Women's Health | DX: Z34.91 Encounter for supervision of normal pregnancy, unspecified, first trimester (principal) | CPT/HCPCS: 76801; 76817 ==

== ENCOUNTER → 2024-10-08 13:36 | Outpatient (BNVA) | payer SELFPAY | PROVIDERS: PCP Registered Nurse; Visit Provider Nurse Practitioner Women's Health | DX: Z36.9 Encounter for antenatal screening, unspecified (principal) | CPT/HCPCS: 76801 ==

== ENCOUNTER → 2024-10-09 11:20 | Outpatient (BNVA) | payer SELFPAY | PROVIDERS: PCP Registered Nurse; Visit Provider Nurse Practitioner Women's Health | DX: Z34.80 Encounter for supervision of other normal pregnancy, unspecified trimester (principal) | CPT/HCPCS: 80307; 84315; 84443; 85025; 86592; 86762; 86803; 86850; 86900; 87086; 87340; 87491; 87591; 87661; 87806 ==

== ENCOUNTER 2024-10-26 08:28 | Emergency (ER) | payer BC, MEDICAID, SELFPAY ==
[2024-10-26 08:34] VITALS: BP 131/80; PULSE 94; RESP 18; O2SAT 99; BMI 34.1
--- NOTE | 2024-10-26 08:53 | ED_ITS ---
HPI - Abdominal Pain 2 General: Chief Complaint: Abdominal Pain Stated Complaint: abdominal pain Time Seen by Provider: 10/26/24 08:46 Source: patient Mode of arrival: ambulatory Limitations: no limitations History of Present Illness: 29-year-old female who is currently 11 w eeks states she has been having some left lower quadrant pain that started at midnight states she does have an ovarian cyst that her OB has been following states the pain is improved currently a 4 out of 10 she denies any vaginal discharge denies any vaginal bleeding denies any vomiting or diarrhea Associated Symptoms: Denies chills, diarrhea, dysuria, fever(s) and vomiting Related Data Previous Rx's ?Medication ?Instructions ?Recorded acetaminophen 325 mg capsule 325 mg PO Q4H PRN fever o r pain 12/04/23 #60 caps pantoprazole 40 mg tablet,delayed See Rx Instructions .Route 12/25/23 release .COMPLEX #90 tabs Allergies Allergy/AdvReac Type Severity Reaction Status Date / Time iodine Allergy Severe ALGY-Anaphy Verified 09/13/24 10:21 laxis Penicillins Allergy Mild ALGY-Hives Verified 09/13/24 10:21 cefdinir Allergy ADR-Vomitin Verified 09/13/24 10:21 g metoclopramide (From Reglan) Allergy ADR-Agitate Verified 09/13/24 10:21 d nifedipine AdvReac rash, Verified 09/13/24 10:54 tachycardia, sob Review of Systems 2 Const: Denies: fever(s), chills, body aches or change in appetite ENMT: Denies: throat pain or dental pain Card: Denies: chest pain Resp: Denies: dyspnea GI: Reports: abdominal pain; Denies: vomiting or diarrhea : Denies: dysuria or vaginal bleeding Musc: Denies: neck pain or back pain Skin/Breast: Denies: rash Neuro: Denies: headache(s) PFSH ED 2 PFSH: Medical History Essential hypertension No pertinent past medical history neghx: dm,thyroid,dvt/pe PCP: Mata Fisher depression Anxiety managed w/o medication; historically tried zoloft without improvement. Has not been on this since 2020. (vaginal after ) Asthma GERD (gastroesophageal reflux disease) Surgical History Hx successful (vaginal after ), currently History of tonsillectomy and adenoidectomy (~2013) History of section, low transverse (11/20/18) PLTCS. Dx: Nonreassuring FHT. Performed by Dr. Bustillo at [facility] [place]. Family History Father Hypertension Diabetes Hyperlipidemia Grandmother Diabetes paternal Denies family history of Colon cancer Ovarian cancer Heart disease Breast cancer Uterine cancer Thyroid disease Stroke Social History Smoking and tobacco/nicotine status: former use of tobacco/nicotine Physical Exam 2 Const: COMMON NORMALS: no acute distress, patient oriented x3 and healthy appearing HENMT: COMMON NORMALS: normocephalic and atraumatic HEAD & SCALP: n ormocephalic and atraumatic Neck/C-Spine: COMMON NORMALS: full ROM and supple Chest: COMMONS NORMALS: normal inspection of the chest Resp: COMMON NORMALS: normal respiratory effort Cardio: COMMON NORMALS: regular rate, regular rhythm and No murmurs present (Cardio) RATE: regular rate RHYTHM: regular rhythm GI: COMMON NORMALS: Normal to inspection, nondistended, normoactive bowel sounds present, Soft to palpation, non-tender and no masses PALPATION: Yes Soft to palpation Extremity: COMMON NORMALS: normal to inspection and full ROM Neuro: COMMON NORMALS: patient oriented x3, moves all extremities and no focal motor deficits Psych: COMMON NORMALS: mental status grossly normal, Normal thought process present and cooperative THOUGHT PROCESS: Normal thought process present Skin: COMMON NORMALS: no rashes or lesions noted and no wounds GENERAL SKIN EXAM: no rashes or lesions noted Course 2 Vital Signs: Vital signs: Vital Signs Pulse Rate 94 10/26/24 08:34 Respiratory Rate 18 10/26/24 08:34 Blood Pressure 131/80 10/26/24 08:34 Pulse Oximetry 99 10/26/24 08:34 Oxygen Delivery Me thod Room Air 10/26/24 08:34 MDM - Abdominal Pain Medical Decision Making Patient presents with abdominal pain in she has a known ovarian cyst I did bedside ultrasound did see the ovarian cyst no signs of a ruptured she has no signs of torsion she did have an IUP consistent dates heart rate 147. She is to follow-up with her OB as scheduled on Monday return if worsening she understands agrees plan Medical Records I reviewed the patient's medical records. Lab Data I reviewed the patient's lab results. 10/26/24 08:46 10/26/24 08:46 Labs/Radiology: Laboratory Results WBC 7.73 10^3/uL (3.29-11.43) 10/26/24 08:46 RBC 5.06 10^6/uL (3.85-5.65) 10/26/24 08:46 Hgb 12.50 g/dL (11.27-16.99) 10/26/24 08:46 Hct 38.8 % (36-47) 10/26/24 08:46 MCV 76.7 fl (85-98) L 10/26/24 08:46 MCH 24.7 pg (27-33) L 10/26/24 08:46 MCHC 32.2 g/dL (30-55) 10/26/24 08:46 RDW 16.0 % (12.1-15.1) H 10/26/24 08:46 Plt Count 210 10^3/cmm (157-399) 10/26/24 08:46 MPV 11.4 fL (7.4-10.4) H 10/26/24 08:46 Neut % (Auto) 67.9 % 10/26/24 08:46 Lymph % (Auto) 25.0 % 10/26/24 08:46 [place] % (Auto) 6.0 % 10/26/24 08:46 Eos % (Auto) 0.4 % 10/26/24 08:46 Baso % (Auto) 0.3 % 10/26/24 08:46 Neut # (Auto) 5.26 10^3/uL (1.8-7.7) 10/26/24 08:46 Lymph # (Auto) 1.9 10^3/uL (0.8-4.8) 10/26/24 08:46 [place] # (Auto) 0.5 10^3/uL (0.2-0.9) 10/26/24 08:46 Eos # (Auto) 0.0 10^3/uL (0.0-0.8) 10/26/24 08:46 Baso # (Auto) 0.0 10^3/uL (0.0-0.1) 10/26/24 08:46 Nucleated RBC % (auto) 0 % 10/26/24 08:46 Nucleated RBCs # 0.0 /100WBC 10/26/24 08:46 Sodium 136 mmol/L (136-145) 10/26/24 08:46 Potassium 4.0 mmol/L (3.5-5.1) 10/26/24 08:46 Chloride 104 mmol/L (98-107) 10/26/24 08:46 Carbon Dioxide 22 mmol/L (22-29) 10/26/24 08:46 Anion Gap 14.0 (5-19) 10/26/24 08:46 BUN 4 mg/dL (6-20) L 10/26/24 08:46 Creatinine 0.5 mg/dL (0.5-0.9) 10/26/24 08:46 GFR Calculation 146.9 mL/min (90-130) H 10/26/24 08:46 Glucose 117 mg/dL (65-115) H 10/26/24 08:46 Calculated Osmolality 280 mOsm/kg (285-295) L 10/26/24 08:46 Calcium 9.1 mg/dL (8.5-10.5) 10/26/24 08:46 Total Bilirubin 0.3 mg/dL (0.15-1.2) 10/26/24 08:46 AST 12 U/L (0-32) 10/26/24 08:46 ALT 9 U/L (0-33) 10/26/24 08:46 Alkaline Phosphatase 67 U/L (35-105) 10/26/24 08:46 Total Protein 6.9 g/dL (6.6-8.7) 10/26/24 08:46 Albumin 4.1 g/dL (3.5-5.2) 10/26/24 08:46 Globulin 2.8 g/dL (1.3-4.6) 10/26/24 08:46 Lipase 12 U/L (13-60) L 10/26/24 08:46 Urine Color Yellow (Yellow) 10/26/24 08:58 Urine Appearance Cloudy (CLEAR) A 10/26/24 08:58 Urine pH 7.5 (5-7) 10/26/24 08:58 Ur Specific [place] 1.021 (1.005-1.030) 10/26/24 08:58 Urine Protein Trace (Negative) A 10/26/24 08:58 Urine Glucose (UA) Negative (Normal) 10/26/24 08:58 Urine Ketones Negative (Negative) 10/26/24 08:58 Urine Blood Negative (Negative) 10/26/24 08:58 Urine Nitrate Negative (Negative) 10/26/24 08:58 Urine Bilirubin Negative (Negative) 10/26/24 08:58 Urine Urobilinogen 1.0 mg/dL (Negative) 10/26/24 08:58 Ur Leukocyte Esterase 1+ (Negative) A 10/26/24 08:58 Urine RBC 6-10 /hpf (0-2) 10/26/24 08:58 Urine WBC 6-10 /hpf (0-5) 10/26/24 08:58 Ur Squamous Epith Cells 11-20 /hpf (0-5) H 10/26/24 08:58 Amorphous Sediment Not Reportable 10/26/24 08:58 Urine Bacteria 1+ /hpf (NONE) H 10/26/24 08:58 Hyaline Casts 1.21 /lpf 10/26/24 08:58 No radiology studies performed this visit Discharge Plan Discharge Patient Disposition: Home Clinical Impression: Abdominal pain affecting Condition: Stable Prescriptions: No Action pantoprazole 40 mg tablet,delayed release (DR/EC) See Rx Instructions .ROUTE .COMPLEX Qty: 90 0RF Dose Instruction: TAKE 1 TABLET BY MOUTH DAILY Rx Instructions: TAKE 1 TABLET BY MOUTH DAILY acetaminophen 325 mg capsule 325 mg PO Q4H PRN (Reason: fever or pain) Qty: 60 0RF Discharge Orders: Discharge ED (Routine); Ordered 10/26/24 Ordered By: Chino Corbin Referrals: Kristian Bull MD [Physician, EQUIPMENT SPECIALIST] - 4-7 days Clair Fisher FNP [Primary Care Provider, Family Practice] Discharge Diet: Advance as tolerated Discharge Activity: Resume usual activity Patient Instructions: Abdominal Pain (ED) Print Language: Indian Coding Level of Care Code ED Resist Coater Developer for Chg Dayanara
[2024-10-26 08:58] LABS: Basophils % 0.3 %; Eosinophils % 0.4 %; Hematocrit 38.8 % (36-47); Lymphocytes # 1.9 10^3/uL (0.8-4.8); Mean Corpuscular HGB Conc 32.2 g/dL (30-55); Mean Corpuscular Hemoglobin 24.7 pg (27-33); Mean Corpuscular Volume 76.7 fl (85-98); Mean Platelet Volume 11.4 fL (7.4-10.4); Monocytes # 0.5 10^3/uL (0.2-0.9); Neutrophils # 5.26 10^3/uL (1.8-7.7); Neutrophils % 67.9 %; Nucleated Red Blood Cells % 0 %; Platelet Count 210 10^3/cmm (157-399); Red Blood Count 5.06 10^6/uL (3.85-5.65); White Blood Count 7.73 10^3/uL (3.29-11.43)
[2024-10-26 09:11] LABS: Alanine Aminotransferase 9 U/L (0-33); Albumin Level 4.1 g/dL (3.5-5.2); Alkaline Phosphatase 67 U/L (35-105); Aspartate Amino Transferase 12 U/L (0-32); Blood Urea Nitrogen 4 mg/dL (6-20); Calcium 9.1 mg/dL (8.5-10.5); Carbon Dioxide 22 mmol/L (22-29); Chloride 104 mmol/L (98-107); Creatinine Clr Calc Pharmacy 188.7985; Globulin 2.8 g/dL (1.3-4.6); Glomerular Filtration Rate 146.9 mL/min (90-130); Glucose 117 mg/dL (65-115); Lipase 12 U/L (13-60); Osmolality Calculated 280 mOsm/kg (285-295); Sodium 136 mmol/L (136-145); Total Bilirubin 0.3 mg/dL (0.15-1.2); Total Protein 6.9 g/dL (6.6-8.7)
[2024-10-26 09:13] LABS: Bilirubin Urine Negative (Negative); Blood Urine Negative (Negative); Glucose Urine UA Negative (Normal); Ketones Urine Negative (Negative); Leukocyte Esterase Urine 1+ (Negative); Nitrate Urine Negative (Negative); Protein Urine Trace (Negative); Specific Gravity, Urine 1.021 (1.005-1.030); Urine Appearance Cloudy (CLEAR); Urine Color Yellow (Yellow); pH Urine 7.5 (5-7)
[2024-10-26 09:15] LABS: Add Urine Microscopic? YES; Bacteria Urine 1+ /hpf; Hyaline Casts Urine 1.21 /lpf
[2024-10-26 10:00] VITALS: PULSE 90; RESP 18; O2SAT 99
[2024-10-26 10:03] VITALS: BP 138/77; PULSE 80; O2SAT 100
== END 2024-10-26 10:12 | disposition home or self-care (01) ==
PROVIDERS: Emergency Provider Emergency Medicine; PCP Registered Nurse
DX: O26.891 Other specified pregnancy related conditions, first trimester (principal); Z3A.11 11 weeks gestation of pregnancy; Z87.891 Personal history of nicotine dependence; R10.32 Left lower quadrant pain; I10 Essential (primary) hypertension
CPT/HCPCS: 36415; 80053; 81001; 83690; 85025; 99283

== ENCOUNTER → 2024-10-30 09:01 | Outpatient (BNVA) | payer BC, MEDICAID, SELFPAY | PROVIDERS: PCP Registered Nurse; Visit Provider Obstetrics & Gynecology | DX: I10 Essential (primary) hypertension (principal); O34.80 Maternal care for other abnormalities of pelvic organs, unspecified trimester; N83.209 Unspecified ovarian cyst, unspecified side | CPT/HCPCS: 80053; 84315; 87624 ==

== ENCOUNTER → 2024-11-06 08:39 | Outpatient (BNVA) | payer BC, MEDICAID, SELFPAY | PROVIDERS: PCP Registered Nurse; Visit Provider Obstetrics & Gynecology | DX: N83.202 Unspecified ovarian cyst, left side (principal) | CPT/HCPCS: 76801 ==

== ENCOUNTER → 2024-12-02 13:05 | Outpatient (BNVA) | payer BC, SELFPAY | PROVIDERS: PCP Registered Nurse; Visit Provider Nurse Practitioner Women's Health | DX: Z34.90 Encounter for supervision of normal pregnancy, unspecified, unspecified trimester (principal) | CPT/HCPCS: 84315 ==

== ENCOUNTER → 2024-12-17 14:56 | Outpatient (BNVA) | payer BC, MEDICAID, SELFPAY | PROVIDERS: PCP Registered Nurse; Visit Provider Nurse Practitioner Women's Health | DX: Z34.90 Encounter for supervision of normal pregnancy, unspecified, unspecified trimester (principal) | CPT/HCPCS: 84315 ==

== ENCOUNTER → 2025-01-01 14:30 | Outpatient (BNVA) | payer BC, MEDICAID, SELFPAY | PROVIDERS: PCP Registered Nurse; Visit Provider Obstetrics & Gynecology | DX: Z36.9 Encounter for antenatal screening, unspecified (principal) | CPT/HCPCS: 76805 ==

== ENCOUNTER → 2025-01-08 16:11 | Outpatient (BNVA) | payer BC, MEDICAID, SELFPAY | PROVIDERS: PCP Registered Nurse; Visit Provider Obstetrics & Gynecology | DX: Z34.90 Encounter for supervision of normal pregnancy, unspecified, unspecified trimester (principal) | CPT/HCPCS: 84315 ==

== ENCOUNTER → 2025-02-06 10:19 | Outpatient (BNVA) | payer SELFPAY | PROVIDERS: PCP Registered Nurse; Visit Provider Obstetrics & Gynecology | DX: Z34.90 Encounter for supervision of normal pregnancy, unspecified, unspecified trimester (principal); I10 Essential (primary) hypertension | CPT/HCPCS: 84315 ==

== ENCOUNTER 2025-02-07 15:45 | Outpatient (CLI) | payer SELFPAY ==
[2025-02-07 17:21] LABS: Total Volume, Urine 1250 mL
== END 2025-02-07 15:46 | disposition home or self-care (01) ==
PROVIDERS: PCP Registered Nurse; Visit Provider Obstetrics & Gynecology
DX: I10 Essential (primary) hypertension (principal)
CPT/HCPCS: 84156

== ENCOUNTER 2025-02-24 10:00 | Oncology outpatient (recurring) (ONCR) | payer BC, MEDICAID, SELFPAY ==
--- NOTE | 2025-02-24 10:00 | US_ITS ---
WS: [id number] LIMITED OBSTETRICAL ULTRASOUND HISTORY: Growth and ovarian cyst follow-up. COMPARISON: 09/25/2024, 10/08/2024, 01/01/2025. Presentation: Breech Cervix: Closed and normal length. Placenta: Posterior, no previa. Grade: 1 HEART: FHR of 131 BPM. measurements: BPD = 5.9 cm = 24w1d; less than 3rd percentile. HC = 23.4 cm = 25w3d; less than 3rd percentile. AC = 21.1 cm = 25w4d; less than 3rd percentile. FL = 4.8 cm = 26w5d; 7.2% Very little amniotic fluid is identified. No amniotic fluid index measurement was obtained. This represents a significant change from the prior ultrasound of 01/01/2025. EFW: 869.9 g; 3.0 % AGA by ultrasound: 25w3d RENETTA by ultrasound: 06/06/2025 Reidentified is a well-circumscribed cystic mass in the central pelvis just behind the urinary bladder. This cystic mass does have through transmission but also a thin septation. Mass measures 8.5 x 6.7 x 8.7 cm and just to the RIGHT of midline. head is dolichocephalic in shape. Difficulty obtaining accurate measurements of the head and abdomen. This is probably due to lack of amniotic fluid. US/[place] [id number] IMPRESSION: 1. Single intrauterine gestation of 25w3d with an RENETTA of 06/06/2025. Fetus is measuring small for gestational age by just over 2 weeks as compared to the fir st trimester ultrasound. 2. No discernible amniotic fluid is identified. Small pockets be present. This represents a significant change as compared to 01/01/2025. Normal amount of flu id was identified on 01/01/2025. 3. Biometry measurements are less than the 3rd percentile and the estimated fe padmini weight at the 3rd percentile consistent with small for gestational age. Thi s represents a significant change since 01/01/2025. 4. Complex cystic mass Notified Kristian Bull MD at 02/24/2025 3:26 PM.
== END 2025-03-21 23:59 | disposition home or self-care (01) ==
LOC: ONCMED 02-28 06:52
PROVIDERS: PCP Registered Nurse; Visit Provider Internal Medicine Medical Oncology
DX: O34.80 Maternal care for other abnormalities of pelvic organs, unspecified trimester (principal); N83.209 Unspecified ovarian cyst, unspecified side; R19.09 Other intra-abdominal and pelvic swelling, mass and lump; R93.89 Abnormal findings on diagnostic imaging of other specified body structures; Z3A.25 25 weeks gestation of pregnancy
CPT/HCPCS: 76816; 84315

== ENCOUNTER 2025-02-24 10:03 | Outpatient (CLI) | payer BC, MEDICAID, SELFPAY | END 2025-02-24 10:04 | disposition home or self-care (01) | LOC: RAD 10:06 | PROVIDERS: PCP Registered Nurse; Visit Provider Nurse Practitioner Women's Health | DX: Z53.9 Procedure and treatment not carried out, unspecified reason (principal) | CPT/HCPCS: 76816 ==

== ENCOUNTER 2025-02-24 19:30 | Outpatient (CLI) | payer BC, MEDICAID, SELFPAY ==
[2025-02-24 19:51] VITALS: BP 136/73; PULSE 86
[2025-02-24 19:55] VITALS: BMI 33.3
[2025-02-24 20:00] VITALS: BP 136/73; PULSE 86; RESP 16
--- NOTE | 2025-02-24 21:47 | PC.NURSE ---
patient sent by private vehicle per patient request to [facility]
== END 2025-02-24 20:08 | disposition home or self-care (01) ==
LOC: OPOB 19:33 → OBGYN 19:34
PROVIDERS: PCP Registered Nurse; Visit Provider Obstetrics & Gynecology
DX: O36.5990 Maternal care for other known or suspected poor fetal growth, unspecified trimester, not applicable or unspecified (principal); O41.00X0 Oligohydramnios, unspecified trimester, not applicable or unspecified; Z3A.00 Weeks of gestation of pregnancy not specified
CPT/HCPCS: 99211

== ENCOUNTER 2025-03-01 06:49 | Observation (INO) | payer BC, MEDICAID, SELFPAY ==
[2025-03-01] VITALS (15 sets, daily range): BP systolic 121–200; BP diastolic 60–114; PULSE 61–89; RESP 15–24; TEMP 36.3–36.8; O2SAT 92–99; BMI 33.3
--- OUTSIDE RECORDS SUMMARY | 2025-03-01 06:54 | XMS_ITS | Encounter Summary ---
Author Organization [facility] Address [address] [place] [address] Care Team Providers Care Supervisor Riprap Placing Name Role Phone Clair Fisher CHUTE LOADER Primary Care Provider Encounter Details Date Type Department Care Team (Late st Contact Info) Description 02/05/2018 Ancillary Orders [employer] 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 Exam: XR CHEST PA AND LATERAL 2 VW Date/Time of Exam: 02/05/2018 8:35 PM Reason For Exam: See Diagnosis. Diagnosis: Cough. Findings: Comparison study 02/09/2015. No pleural effusion. Lungs and cardiac silhouette unremarkable. Imaged skeleton without gross acute pathology. Narrative Procedure Note Fidelia Presley MD - 02/06/2018 IMPRESSION: Please see below. Exam: XR CHEST PA AND LATERAL 2 VW Date/Time of Exam: 02/05/2018 8:35 PM Reason For Exam: See Diagnosis. Diagnosis: Cough. Findings: Comparison study 02/09/2015. No pleural effusion. Lungs and cardiac silhouette unremarkable. Imaged skeleton without gross acute pathology. us Lawson Aguirre DO DIAGNOSTIC IMAGING ORDERABLES F inal Result documented in this encounter Visit Diagnoses Diagnosis Cough Cough documented in this encounter Care Teams Supervisor Riprap Placing Relationship Specialty Start Date End Date Clair Fisher FNP [address] [place] [id number] PCP - General Nurse Practitioner Family 05/02/20 documented as of this encounter
--- OUTSIDE RECORDS SUMMARY | 2025-03-01 06:54 | XMS_ITS | Encounter Summary ---
Author Organization [facility] Address [address] [place] [address] Care Team Providers Care Wood Cabinet Finisher Name Role Phone Clair Fisher RAYMOND Primary Care Provider Reason for Referral * Outpatient Services (Routine) - Closed Specialty Diagnoses / Procedures Referred By Subhash hand Referred To Contact Radiology Diagnoses Abdominal pain, unspecified site Procedures US ABDOMEN LIMITED Carina Chavez FNP [address] [facility] [facility] [place] [address] Phone: tel: fax: [facility] [address] [place] [address] Phone: tel: fax: Referral ID Status Reason Start Date Expiration Date Visits Re quested Visits Authorized [id number] Closed 05/28/2012 06/27/2012 1 1 IO MUSICIAN Encounter Details Date Type Department Care Team ([facility] st Contact Info) Description 05/29/2012 Ancillary Orders [facility] Scheduling [address] [place] [address] Carina Chavez FNP [address] [place] [address] Abdominal pain, unspecified site Social History Tobacco Use Types Packs/Day Years Used Date Smoking Tobacco: Never Alcohol Use Standard Drinks/Week Comments No 0 (1 standard drink = 0.6 oz pur e alcohol) Comments No Sex and Gender Information Value Date Recorded Sex Assigned at Not on file Legal Sex Female 2:58 AM STUDIO MUSICIAN Gender Identity Not on file Sexual Orientation Not on file Occupation Industry Job Start Date Job End Date Not on file Not on file Not on file Not on file documented as of this encounter Plan of Treatment Not on file documented as of this encounter Results * US ABDOMEN LIMITED (05/31/2012 8:54 AM STUDIO MUSICIAN) Anatomical Region Laterality Modality Abdomen Ultrasound 05/31/2012 8:35 AM STUDIO MUSICIAN Narrative 05/31/2012 12:09 PM STUDIO MUSICIAN PROCEDURE US ABDOMEN LIMITED, 31 May 2012 DESCRIPTION Right upper quadrant ultrasound showed hepatic span of 7.5 cm with AP diameter of 13.8 cm and transverse diameter of 6.6 cm. No hepatic focal lesion is seen. Common duct caliber is normal at 2.8 mm. The gallbladder is not optimally distended. Wall thickness is 2.6 mm. No internal echogenicity or distal acoustic shadowing is appreciated. The visualized portion of head and body the pancreas appears unremarkable. IMPRESSION 1. negative for cholelithiasis 2. suboptimal gallbladder distention 3. no hepatic focal defect seen Procedure Note Allan Thomas MD - 05/31/2012 PROCEDURE US ABDOMEN LIMITED, 31 May 2012 DESCRIPTION Right upper quadrant ultrasound showed hepatic span of 7.5 cm with AP diameter of 13.8 cm and transverse diameter of 6.6 cm. No hepatic focal lesion is seen. Common duct caliber is normal at 2.8 mm. The gallbladder is not optimally distended. Wall thickness is 2.6 mm. No internal echogenicity or distal acoustic shadowing is appreciated. The visualized portion of head and body the pancreas appears unremarkable. IMPRESSION 1. negative for cholelithiasis 2. suboptimal gallbladder distention 3. no hepatic focal defect seen us Carina Chavez RADIAL DRILL OPERATOR FOR PLASTIC US ORDERABLES Fin al Result documented in this encounter Visit Diagnoses Diagnosis Abdominal pain, unspecified site Abdominal pain, unspecified site documented in this encounter Care Teams Wood Cabinet Finisher Relationship Specialty Start Date End Date Clair Fisher FNP [address] [place] [address] PCP - General Nurse Practitioner Family 05/02/20 documented as of this encounter
--- OUTSIDE RECORDS SUMMARY | 2025-03-01 06:54 | XMS_ITS | Encounter Summary ---
Author Organization [facility] Address [address] [facility] [address] Care Team Providers Care Medical Insurance Biller Name Role Phone Clair Fisher EXECUTIVE PERSONAL ASSISTANT Primary Care Provider Encounter Details Date Type Department Care Team (Late st Contact Info) Description 02/08/2018 Lab Requisition [facility] [place] [address] [place] [address] Lawson Aguirre, NO ADDRESS ON FILE Social History Tobacco Use Types Packs/Day Years Used Date Smoking Tobacco: Every Day Cigarettes Smokeless Tobacco: Never Alcohol Use Standard Drinks/Week Comments Yes 0 (1 standard drink = 0.6 oz pur e alcohol) occasional Comments No Sex and Gender Information Value Date Recorded Sex Assigned at Not on file Legal Sex Female 2:58 AM SHOE HANDLER Gender Identity Not on file Sexual Orientation Not on file Occupation Industry Job Start Date Job End Date Not on file Not on file Not on file Not on file Not on file Not on file Not on file Not on file documented as of this encounter Plan of Treatment Not on file documented as of this encounter Procedures Procedure Name Priority Date/Time Associated Diagnosis Comments CBC WITH DIFFERENTIAL Routine 02/05/2018 5:00 PM CDT BASIC METABOLIC PANEL Routine 02/05/2018 5:00 PM CDT documented in this encounter Results * (ABNORMAL) CBC WITH DIFFERENTIAL (02/05/2018 5:00 PM CDT) WBC 12.6(H) 4.0 - 10.0 K/uL 02/08/2018 4:29 PM [facility] RBC 5.45(H) 3.93 - 5.22 M/uL 02/08/2018 4:29 PM [facility] HEMOGLOBIN 16.0(H) 11.2 - 15.7 g/dL 02/08/2018 4:29 PM [facility] HEMATOCRIT 48.4(H) 34.1 - 44.9 % 02/08/2018 4:29 PM [facility] MCV 88.8 79.4 - 94.8 fL 02/08/2018 4:29 PM [facility] MCH 29.4 25.6 - 32.2 pg 02/08/2018 4:29 PM [facility] MCHC 33.1 32.2 - 35.5 g/dL 02/08/2018 4:29 PM [facility] RDW 13.7 11.0 - 14.5 % 02/08/2018 4:29 PM [facility] PLATELETS 263 163 - 337 K/uL 02/08/2018 4:29 PM [facility] MPV 11.2 10.0 - 14.8 fL 02/08/2018 4:29 PM [facility] NEUTROPHILS 64 34 - 71 % 02/08/2018 4:29 PM [facility] LYMPHOCYTES 28 19 - 52 % 02/08/2018 4:29 PM [facility] MONOCYTES 8 5 - 13 % 02/08/2018 4:29 PM [facility] EOSINOPHILS 0(L) 1 - 6 % 02/08/2018 4:29 PM [facility] BASOPHILS 0 0 - 1 % 02/08/2018 4:29 PM [facility] NEUTROPHIL ABSOLUTE 7.99(H) 1.56 - 6.13 K/uL 02/08/2018 4:29 PM [facility] LYMPHOCYTE ABSOLUTE 3.45(H) 1.20 - 3.40 K/uL 02/08/2018 4:29 PM CDT [facility] MONOCYTE ABSOLUTE 1.03(H) 0.24 - 0.36 K/uL 02/08/2018 4:29 PM [facility] EOSINOPHIL ABSOLUTE 0.04 0.04 - 0.36 K/uL 02/08/2018 4:29 PM [facility] BASOPHILS ABSOLUTE 0.02 0.01 - 0.08 K/uL 02/08/2018 4:29 PM [facility] Blood Collection / Unknown 02/05/2018 5:00 PM CDT 02/08/2018 3:22 PM CDT us Lawson Aguirre DO HEMATOLOGY ORDERABLES Final Res ult [facility] CLIA # [id number] [address] [place] [id number] * BASIC METABOLIC PANEL (02/05/2018 5:00 PM CDT) SODIUM 140 136 - 145 mmol/L 02/08/2018 4:29 PM [facility] POTASSIUM 3.8 3.5 - 5.1 mmol/L 02/08/2018 4:29 PM [facility] CHLORIDE 102 98 - 107 mmol/L 02/08/2018 4:29 PM [facility] CO2 23 22 - 29 mmol/L 02/08/2018 4:29 PM [facility] CALCIUM 9.5 8.6 - 10.0 mg/dL 02/08/2018 4:29 PM [facility] BUN 8 6 - 20 mg/dL 02/08/2018 4:29 PM [facility] CREATININE 0.75 0.51 - 0.95 mg/dL 02/08/2018 4:29 PM [facility] GLUCOSE 82 74 - 99 mg/dL 02/08/2018 4:29 PM [facility] GFR >60 >=60 mL/min/1.7 3 sq meter 02/08/2018 4:29 PM [facility] Comment: eGFR has not been validated for use in the elderly (> 70 years of age), women, patients with serious co-morbid conditions, or persons with extremes of body size or muscle mass and should also be interpreted with caution in patients with acute kidney failure, dialysis dependent patients, patients reporting exceptional dietary intake (e.g. vegetarian diet, high protein diets, creatine supplementation), and patients with severe liver disease. Based on National Kidney Disease Education Program If patient is , please refer to the GFR result. GFR, >60 >=60 mL/min/1.7 3 sq meter 02/08/2018 4:29 PM CDT [facility] ANION GAP 15 12 - 20 mmol/L 02/08/2018 4:29 PM CDT [facility] Blood Collection / Unknown 02/05/2018 5:00 PM CDT 02/08/2018 3:22 PM CDT Lawson Aguirre DO CHEMISTRY ORDERABLES Final Resu lt [facility] CLIA # [id number] [address] [place] [address] documented in this encounter Visit Diagnoses Not on filedocumented in this encounter Care Teams Medical Insurance Biller Relationship Specialty Start Date End Date Clair Fisher FNP [address] [place] [address] PCP - General Nurse Practitioner Family 05/02/20 documented as of this encounter
--- OUTSIDE RECORDS SUMMARY | 2025-03-01 06:54 | XMS_ITS | Encounter Summary ---
Author Organization [facility] Address [address] [place] [address] Care Team Providers Care Spinning Lathe Operator Hydraulic Name Role Phone Clair Fisher Primary Care Provider Encounter Details Date Type Department Care Team (Latest Contact Info) Description 06/16/1998 Outpatient Historical [facility] [phone] Zach Klein MD [address] [place] [address] Acute upper respiratory infections of unspecified site (Primary Dx) Social History Tobacco Use Types Packs/Day Years Used Date Smoking Tobacco: Never Assessed Comments Unknown Sex and Gender Information Value Date Recorded Sex Assigned at Not on file Legal Sex Female 2:58 AM DRILLER PORTABLE Gender Identity Not on file Sexual Orientation Not on file documented as of this encounter Plan of Treatment Not on file documented as of this encounter Visit Diagnoses Diagnosis Acute upper respiratory infections of unspecified site- Primary documented in this encounter Care Teams Spinning Lathe Operator Hydraulic Relationship Specialty Start Date End Date Clair Fisher FNP [address] [place] [phone] PCP - General Nurse Practitioner Family 05/02/20 documented as of this encounter
--- OUTSIDE RECORDS SUMMARY | 2025-03-01 06:54 | XMS_ITS | Clinical Summary ---
Author Organization [facility] Address [address] [place] [address] Care Team Providers Care Photolith Operator Name Role Phone Miscellaneous, Not In File Primary Care Provider Unavailable Allergies Active Allergy Reactions Criticality Noted Date Comments Penicillins Hives,Itching Medium 05/26/2022 Medications vit [id number] mccabe 65-1-250 mg combo packIndications : Take by mouth Activ e yisukysia-HQ-bj etamin-guaifen [id number] mg tabletIndicatio ns:Flu-Like Symptoms Take by mouth Active pantoprazole DR (PROTONIX) 40 mg EC tablet Take 40 mg by mouth daily Active albuterol HFA (PROVENTIL HFA,VENTOLIN HFA,PROAIR HFA) 90 mcg/actuation inhalerIndicati ons:Bronchospas m Prevention Inhale 2 puffs every 6 (six) hours as needed for wheezing or shortness of breath Active acyclovir (ZOVIRAX) 400 mg tablet Take 1 tablet (400 mg total) by mouth as needed (fever blisters) 15 tablet 3 Active hydrOXYzine (ATARAX) 25 mg tablet Take 1 tablet (25 mg total) by mouth 3 (three) times a day as needed for itching 30 tablet 3 Active Surgical History Surgery Date Site/Laterality Comments SECTION TONSILLECTOMY/ADENOIDECTOMY 10/08/2010 Bilateral Medical History Medical History Date Comments Asthma Mental disorder Family History Medical History Relation Name Comments Diabetes Father Hypertension Father Hypertension Sister Relation Name Status Comments Father Sister Social History Tobacco Use Types Packs/Day Years Used Date Smoking Tobacco: Former Cigarettes Smokeless Tobacco: Never Tobacco Cessation:Counseling Given: Not Answered AUDIT-C Answer Date Recorded Q1: How often do you have a drink containing alc ohol? Never 05/26/2022 Average Number of Drinks Not on file 023 Q3: How often do you have si x or more drinks on one occasion? Never 05/26/2022 Personal Safety Answer Date Recorded Getting School Help Needed Not on file 07/10 Comments No Sex and Gender Information Value Date Recorded Sex Assigned at Not on file Legal Sex Female 11:28 AM CDT Gender Identity Female 05/04/2021 9:16 PM MEDIA CENTER SPECIALIST Sexual Orientation Not on file Obstetrics History Para Term AB IAB SAB Ectopic Multiple Livin g Live Births 3 2 1 1 2 2 Date Outcome GA Total Labor Labor/2nd/3rd Weight Sex Type Anes PTL Robina A1 A5 Name Clin 019 Term 3.317 kg (7 lb 5 oz) F CS-LV ertic al Spinal N Livin g Complications: Intolera nce Delivery Location:[facility] 020 3.345 kg (7 lb 6 oz) F Epidur al Y Livin g Complications:Shoulder Dysto nava Delivery Location:[facility] Last Filed Vital Signs Vital Sign Reading Time Taken Comments Blood Pressure 134/80 05/26/2022 2:01 AM MEDIA CENTER SPECIALIST Pulse 95 05/26/2022 2:02 AM MEDIA CENTER SPECIALIST Temperature 36.8 C (98.2 F) 05/26/2022 2:01 AM MEDIA CENTER SPECIALIST Respiratory Rate 18 05/26/2022 2:01 AM MEDIA CENTER SPECIALIST Oxygen Saturation 99% 05/26/2022 2:02 AM MEDIA CENTER SPECIALIST Inhaled Oxygen Concentration - - Weight 92.9 kg (204 lb 14.4 oz) 05/26/2022 2:01 AM MEDIA CENTER SPECIALIST Height - - Body Mass Index - - Plan of Treatment Health Maintenance Due Date Last Done Comments Cervical Cancer Screening 1996 Depression Screening 1996 Hepatitis C Screening 1996 Varicella Vaccines (1 of 2 - 13+ 2-dose series) 01/31/2009 Regular Well Visit/Exam 18-64 01/31/2014 HPV Vaccines (1 - 3-dose SCDM series) 01/31/2023 Influenza Vaccine (#1) 2025 06/19/2013 DTaP/Tdap/Td Vaccine (8 - Td or Tdap) 09/17/2028 09/17/2018, 12/31/2010, 12/28/2000, Additional history exists Hepatitis B Screening Completed 1996 , 1996, 1996, Additional history exists Pneumococcal vaccine <65 Aged Out No longer eligible based on patient's age to complete this topic Insurance Care Teams Photolith Operator Relationship Specialty Start Date End Date Miscellaneous, Not In File PCP - General 05/26/22
--- OUTSIDE RECORDS SUMMARY | 2025-03-01 06:54 | XMS_ITS | Encounter Summary ---
Author Organization [facility] Address [address] [place] [address] Care Team Providers Care Bowling Pin Refinisher Name Role Phone Clair Fisher Primary Care Provider Encounter Details Date Type Department Care Team (Late st Contact Info) Description 06/12/2018 Telephone [facility] Infection Control [address] [facility] [address] [place] [phone] Gricelda Barrios, [address] [place], [place] [address] Social History Tobacco Use Types Packs/Day Years Used Date Smoking Tobacco: Every Day Cigarettes Smokeless Tobacco: Never Alcohol Use Standard Drinks/Week Comments No 0 (1 standard drink = 0.6 oz pur e alcohol) Comments No Sex and Gender Information Value Date Recorded Sex Assigned at Not on file Legal Sex Female 2:58 AM PLATING OPERATOR Gender Identity Not on file Sexual Orientation Not on file Occupation Industry Job Start Date Job End Date Not on file Not on file Not on file Not on file Not on file Not on file Not on file Not on file documented as of this encounter Plan of Treatment Not on file documented as of this encounter Visit Diagnoses Not on filedocumented in this encounter Care Teams Bowling Pin Refinisher Relationship Specialty Start Date End Date Clair Fisher FNP [address] [place] [address] PCP - General Nurse Practitioner Family 05/02/20 documented as of this encounter
--- OUTSIDE RECORDS SUMMARY | 2025-03-01 06:54 | XMS_ITS | Clinical Summary ---
Author Organization [facility] Address [address] [place] [address] Phone Care Team Providers Care Dog Licenser Name Role Phone Clair Fisher RETAIL FINANCIAL ANALYST Primary Care Provider Allergies Active Allergy Reactions Criticality Noted Date Comments Cefdinir Diarrhea,Palpitatio ns Low 05/15/2020 Iodine Itching Low 11/08/2015 Metoclopramide Hcl Other (See Comments) 12/07/2017 Aggitation Penicillins Unknown 08/05/2011 Shellfish Containing Products Other (See Comments) 12/21/2013 Mother has an allergy Medications omeprazole (PriLOSEC) 20 mg Capsule, Delayed Release(E.C.) Take 20 mg by mouth daily. Active chlorhexidine gluconate 0.12 % MouthwashIndicat ions:Dental infection,Gingiv itis 15 mL by Mouth/Throa t route 2 times daily. 437 mL 1 06/27/2019 Active ibuprofen (MOTRIN) 800 mg tablet Take 800 mg by mouth every 6 hours as needed for Pain, Mild. Active cefUROXime axetil (CEFTIN) 250 mg tablet Take 1 Tablet (250 mg) by mouth every 12 hours. 12 Tablet 05/02/2020 Active Active Problems Problem Noted Date Diagnosed Date Tobacco use 02/16/2015 Immunizations Immunization Administration Dates Next Due (M-M-R II/PRIORIX)(12 MO UP) MEASLES, MUMPS AND RUBELLA VIRUS VACCINE, 0.5 ML IM/SUBCUT 12/28/2000,04/14/1997 Dt Dtp Dtap Vaccine 12/28/2000, 7,1996,1996,1996 HIB, Unspecified Formulation 04/14/1997, 1996,1996,1995 Hepatitis B Vaccine 1996,1996,1995 IPV/OPV 12/28/2000, 7,1996,1995 Family History Medical History Relation Name Comments Healthy Brother Asthma Father Diabetes Father Other Father Healthy Mother Healthy Sister 1 Healthy Sister 2 Healthy Sister 3 Healthy Sister 4 Healthy Sister 5 Healthy Sister 6 Healthy Sister 7 Relation Name Status Comments Brother Alive Father Alive Mother Alive Sister 1 Alive Sister 2 Alive Sister 3 Alive Sister 4 Alive Sister 5 Alive Sister 6 Alive Sister 7 Alive Social History Tobacco Use Types Packs/Day Years Used Date Smoking Tobacco: Former Cigarettes Q uit: 11/19/2018 Smokeless Tobacco: Never Alcohol Use Standard Drinks/Week Comments No 0 (1 standard drink = 0.6 oz pur e alcohol) Comments No Sex and Gender Information Value Date Recorded Sex Assigned at Not on file Legal Sex Female 2:58 AM PIZZA DRIVER Gender Identity Not on file Sexual Orientation Not on file Occupation Industry Job Start Date Job End Date Not on file Not on file Not on file Not on file Not on file Not on file Not on file Not on file Last Filed Vital Signs Vital Sign Reading Time Taken Comments Blood Pressure 138/82 05/16/2020 12:28 AM PIZZA DRIVER Pulse 66 05/02/2020 12:47 AM PIZZA DRIVER Temperature 36.6 C (97.9 F) 05/15/2020 11:25 PM PIZZA DRIVER Respiratory Rate 18 05/16/2020 12:28 AM PIZZA DRIVER Oxygen Saturation 98% 05/16/2020 12:28 AM PIZZA DRIVER Inhaled Oxygen Concentration - - Weight 91 kg (200 lb 9.6 oz) 05/15/2020 11:25 PM PIZZA DRIVER Height 165.1 cm (5' 5 ) 05/15/2020 11:25 PM PIZZA DRIVER Body Mass Index 33.38 05/15/2020 11:25 PM PIZZA DRIVER Plan of Treatment Health Maintenance Due Date Last Done Comments DTAP/TDAP/TD VACCINES (6 - Tdap) 01/31/2007 12/28/2000, 04/14/1997, 1996, Additional history exists CERVICAL CANCER SCREENING 01/31/2017 HPV/Cotest (21-29) 01/31/2017 PAP SMEAR 01/31/2017 HPV VACCINES (1 - 3-dose SCD M series) 01/31/2023 INFLUENZA VACCINE (#1) 2024 HEPATITIS B VACCINES Completed 1996, 1996, [address] [place] [address] [facility] MEDICAID [address] [place] [address] [address] [place] [address] Care Teams Dog Licenser Relationship Specialty Start Date End Date Clair Fisher FNP [address] [place] [address] PCP - General Nurse Practitioner Family 05/02/20
--- OUTSIDE RECORDS SUMMARY | 2025-03-01 06:54 | XMS_ITS | Patient Health Record ---
Author Organization [facility] Address [address] [place] [address] Care Team Providers Care Animal Control Supervisor Name Role Phone Zach Clemons Primary Care Provider Allergies Allergen (clinical drug ingredient) Drug/Non Drug Allergy documented on EMR Reaction Allergy Type Onset Date Status amoxicillin Amoxicillin Unknown Drug Allergy Act lester Substance with penicillin structure and antibacterial mechanism of action (substance) Penicillins Unknown Drug Allergy Active Reason For Referral No Information Medications Medication SIG (Take, Route, Fr equency, Duration) Notes Start Date End Date Status Xanax 0.5 MG Tablet 1 tablet Orally 30 m inutes prior to appt. bring other tab with you to appt.; Duration: 1 day 05/27/2020 Ac tive Xanax 0.5 MG Tablet 1 tablet Orally 30 m inutes prior to appt. bring other tab with you to appt.; Duration: 1 day 05/27/2020 Ac tive Xanax 0.5 MG Tablet 1 tablet Orally 30 m inutes prior to appt. bring other tab with you to appt.; Duration: 1 day 05/27/2020 Ac tive Zoloft Active Omeprazole Active Plan Of Treatment No Information Insurance Providers Payer Name Payer Address Payer Phone Subscriber Number Group Number Insured Name Patient Relationship to Insured Coverage Start Date Coverage End Date [employer] [address] [address] [place] [address] [id number] MataJamar medinaanda Self - patient is the insured [employer] [address] [place] [address] [phone] [id number] Barbie August Self - patient is the insured
--- OUTSIDE RECORDS SUMMARY | 2025-03-01 06:54 | XMS_ITS | Encounter Summary ---
Author Organization [facility] Address [address] [place] [address] Care Team Providers Care Supervisor Sandblaster Name Role Phone Clair Fisher Primary Care Provider [phone] Encounter Details Date Type Department Care Team (Latest Contact Info) Description 03/05/1998 Outpatient [facility] Medicine[address] [phone] Hammad Saleem MD [address] [phone] Acute upper respiratory infections of unspecified site (Primary Dx); Acute pharyngitis; Diaper or napkin rash; Amblyopia, unspecified Social History Tobacco Use Types Packs/Day Years Used Date Smoking Tobacco: Never Assessed Comments Unknown Sex and Gender Information Value Date Recorded Sex Assigned at Not on file Legal Sex Female 2:58 AM WINDLACE MACHINE OPERATOR Gender Identity Not on file Sexual Orientation Not on file documented as of this encounter Plan of Treatment Not on file documented as of this encounter Visit Diagnoses Diagnosis Acute upper respiratory infections of unspecified site- Primary Acute pharyngitis Diaper or napkin rash Amblyopia, unspecified documented in this encounter Care Teams Supervisor Sandblaster Relationship Specialty Start Date End Date Clair Fisher FNP [address] [place] [phone] PCP - General Nurse Practitioner Family 05/02/20 documented as of this encounter
--- OUTSIDE RECORDS SUMMARY | 2025-03-01 06:54 | XMS_ITS | Encounter Summary ---
Author Organization [employer] [facility] Address [address] [place] [address] Care Team Providers Care Home Demonstrator Name Role Phone Clair Fisher Primary Care Provider Reason for Referral * Radiology Services (Routine) - Closed Specialty Diagnoses / Procedures Referred By Subhash hand Referred To Contact Radiology Diagnoses Pelvic and perineal pain Abdominal pain, unspecified abdominal location Procedures XR ABDOMEN 1 VW Clair Fisher FNP [address] [place] [address] Phone: tel: fax: [facility] [place] [address] [facility] [address] [place] [address] Phone: tel: fax: Referral ID Status Reason Start Date Expiration Date Visits Re quested Visits Authorized [id number] Closed 05/08/2020 06/08/2021 1 1 TAL MEDIA ANALYST Encounter Details Date Type Department Care Team ([facility] st Contact Info) Description 05/08/2020 [facility] [place] [address] AT [facility] [address] [place] [address] Clair Fisher FNP [address] [place] [address] Pelvic and perineal pain; Abdominal pain, unspecified abdominal location Social History Tobacco Use Types Packs/Day Years Used Date Smoking Tobacco: Former Cigarettes Q uit: 11/19/2018 Smokeless Tobacco: Never Alcohol Use Standard Drinks/Week Comments No 0 (1 standard drink = 0.6 oz pur e alcohol) Comments No Sex and Gender Information Value Date Recorded Sex Assigned at Not on file Legal Sex Female 2:58 AM DIGITAL MEDIA ANALYST Gender Identity Not on file Sexual Orientation Not on file Occupation Industry Job Start Date Job End Date Not on file Not on file Not on file Not on file Not on file Not on file Not on file Not on file COVID-19 Exposure Response Date Recorded In the last month, have you been in contact with someone who was confirmed or suspected to have Coronavirus / COVID-19? No / Unsure 05/08/2020 12:47 PM DIGITAL MEDIA ANALYST documented as of this encounter Plan of Treatment Not on file documented as of this encounter Results * XR ABDOMEN 1 VW (05/08/2020 1:06 PM DIGITAL MEDIA ANALYST) Anatomical Region Laterality Modality Abdomen Computed Radiogr aphy 05/08/2020 1:07 PM DIGITAL MEDIA ANALYST Impressions 05/11/2020 11:49 AM DIGITAL MEDIA ANALYST IMPRESSION: Please see below. Exam: XR ABDOMEN 1 VW Date/Time of Exam: 05/08/2020 1:06 PM Reason For Exam: See Diagnosis. Diagnosis: Pelvic and perineal pain; Abdominal pain, unspecified abdominal location. Findings: Comparison from 07/20/2019. The bowel gas pattern is nonspecific. The organ outlines are not enlarged. No abnormal calcifications are noted. The bony structures are unremarkable. IMPRESSION: Nonspecific abdomen. [id number] Narrative Procedure Note Mojgan Hernandez MD - 05/11/2020 IMPRESSION: Please see below. Exam: XR ABDOMEN 1 VW Date/Time of Exam: 05/08/2020 1:06 PM Reason For Exam: See Diagnosis. Diagnosis: Pelvic and perineal pain; Abdominal pain, unspecified abdominal location. Findings: Comparison from 07/20/2019. The bowel gas pattern is nonspecific. The organ outlines are not enlarged. No abnormal calcifications are noted. The bony structures are unremarkable. IMPRESSION: Nonspecific abdomen. [id number] Clair [facility] ES Final Result documented in this encounter Visit Diagnoses Diagnosis Pelvic and perineal pain Unspecified symptom associated with female genital organs Abdominal pain, unspecified abdominal location Pelvic and perineal pain Unspecified symptom associated with female genital organs Abdominal pain, unspecified abdominal location documented in this encounter Care Teams Home Demonstrator Relationship Specialty Start Date End Date Clair Fisher FNP [address] [place] [phone] PCP - General Nurse Practitioner Family 05/02/20 documented as of this encounter
--- OUTSIDE RECORDS SUMMARY | 2025-03-01 06:54 | XMS_ITS | Encounter Summary ---
Author Organization [facility] Address [address] [place] [address] Care Team Providers Care Java Flex Developer Name Role Phone Clair Fisher Primary Care Provider Encounter Details Date Type Department Care Team ([facility] st Contact Info) Description 05/28/2012 Ancillary Orders [facility] Centralized Scheduling [address] [place] [address] Carina Chavez FNP [address] [place] [address] Social History Tobacco Use Types Packs/Day Years Used Date Smoking Tobacco: Never Alcohol Use Standard Drinks/Week Comments No 0 (1 standard drink = 0.6 oz pur e alcohol) Comments No Sex and Gender Information Value Date Recorded Sex Assigned at Not on file 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
--- OUTSIDE RECORDS SUMMARY | 2025-03-01 06:54 | XMS_ITS | Encounter Summary ---
Author Organization [facility] Address [address] [place] [address] Care Team Providers Care Freezer Person Name Role Phone Clair Fisher Primary Care Provider Encounter Details Date Type Department Care Team (Latest Contact Info) Description 07/17/1998 Outpatient Historical [facility] [phone] Dominic Orozco MD [address] [place] [phone] Acute upper respiratory infections of unspecified site (Primary Dx) Social History Tobacco Use Types Packs/Day Years Used Date Smoking Tobacco: Never Assessed Comments Unknown Sex and Gender Information Value Date Recorded Sex Assigned at Not on file Legal Sex Female 2:58 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
--- OUTSIDE RECORDS SUMMARY | 2025-03-01 06:54 | XMS_ITS | Clinical Summary ---
Author Organization [facility] Address [address] Zabalan: Epic Prelude ADT LILIA MARY [address] Care Team Providers Care Lpn Cma Name Role Phone Isac Bedoya MD Primary Care Provider [phone] Allergies Active Allergy Reactions Criticality Noted Date Comments Cefdinir Diarrhea,Palpitations Low 05/15/2020 Iodine Itching Low 11/08/2015 Metoclopramide Hcl Other (See Comments) 018 Aggitation Penicillins Anaphylaxis High 08/05/2011 Medications pantoprazole (PROTONIX) 20 mg Tablet, Delayed Release (E.C.) Take 20 mg by mouth daily. Active Active Problems Problem Noted Date Diagnosed Date Dental abscess 09/26/2024 Foot sprain, right, initial encounter 09/26/2022 Sprain of right ankle 09/26/2022 Tobacco use 02/16/2015 Immunizations Immunization Administration Dates [...] Cigarettes Q uit: 11/19/2018 Smokeless Tobacco: Never Tobacco Cessation:Counseling Given: Not Answered Alcohol Use Standard Drinks/Week Comments No 0 (1 standard drink = 0.6 oz pur e alcohol) Feeling Safe Answer Date Recorded Are you in a relationship wi th someone who hurts you emotionally and/or physically? 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 Gender Identity Not on file Sexual Orientation Not on file Last Filed Vital Signs Vital Sign Reading Time Taken Comments Blood Pressure 134/85 09/26/2024 2:00 PM CDT Pulse 91 09/26/2024 2:00 PM CDT Temperature 36.4 C (97.5 F) 09/26/2024 1:05 PM CDT Respiratory Rate 20 09/26/2024 2:00 PM CDT Oxygen Saturation 98% 09/26/2024 2:00 PM CDT Inhaled Oxygen Concentration - - Weight 92.5 kg (204 lb) 09/26/2024 1:05 PM CDT Height 167.6 cm (5' 6 ) 09/26/2024 1:05 PM CDT Body Mass Index 32.93 09/26/2024 1:05 PM CDT Plan of Treatment Health Maintenance Due Date Last Done Comments DTAP/TDAP/TD VACCINES (6 - Tdap) 01/31/2007 12/28/2000, 04/14/1997, 1996, Additional history exists CERVICAL CANCER SCREENING 01/31/2017 HPV/Cotest (21-29) 01/31/2017 PAP SMEAR 01/31/2017 HPV VACCINES (1 - 3-dose SCD M series) 01/31/2023 INFLUENZA VACCINE (#1) 2024 04/13/2022 HEPATITIS B VACCINES Completed 1996, 1996, 1996, Additional history exists Care Teams Lpn Cma Relationship Specialty Start Date End Date Isac Bedoya MD [address] [phone] PCP - General Family Practice 07/25/23
--- NOTE | 2025-03-01 07:04 | ECG_ITS ---
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
--- NOTE | 2025-03-01 07:08 | ED_ITS ---
HPI - General Adult 2 General: Chief complaint: Headache Stated complaint: high bp (sent by ferny) (5xpostop) Time Seen by Provider: 03/01/25 07:05 History of Present Illness: 30-year-old female presents emergency ro om with elevated blood pressure. Patient had a 5 days ago for low amniotic fluid index and intrauterine growth retardation. This was done at [place]. Patient is a SAB4 T3L5. She has a history of -induced hypertension and her last 2 pregnancies she had hypertension as well was never defined as having preeclampsia or preeclampsia. She comes in today complaining of a headache along with her elevated blood pressure she had contacted her primary OB Dr. Bull was directed to the emergency room. She has not had any scotoma. No abdominal pain. She is not currently on any medications. She did not have gestational diabetes with her most recent Associated symptoms: Reports headache(s); Deny chest pain, dyspnea or rash Related Data Home Medications ?Medication ?Instructions ?Recorded ?Confirmed acetaminophen 500 mg tablet 500 mg PO QID PRN Fever Or Pain 03/01/25 03/01/25 (Tylenol Extra Strength) ibuprofen 200 mg tablet (Advil) 800 mg PO Q6H PRN Feve r Or Pain 03/01/25 03/01/25 pantoprazole 40 mg tablet,delayed 40 mg PO BID 5 03/01/25 release Allergies Allergy/AdvReac Type Severity Reaction Status Date / Time iodine Allergy Severe ALGY-Anaphy Verified 02/24/25 20:11 laxis Penicillins Allergy Mild ALGY-Hives Verified 02/24/25 20:11 cefdinir Allergy ADR-Vomitin Verified 02/24/25 20:11 g metoclopramide (From Reglan) Allergy ADR-Agitate Verified 02/24/25 20:11 d nifedipine AdvReac rash, Verified 02/24/25 20:11 tachycardia, sob Review of Systems 2 Const: Denies: fever(s) or chills Card: Denies: chest pain Resp: Denies: dyspnea GI: Denies: abdominal pain : Denies: dysuria, urinary frequency or urinary urgency Musc: Denies: neck pain or back pain Skin/Breast: Denies: rash Neuro: Reports: headache(s) PFSH ED 2 PFSH: Medical History Anxiety managed w/o medication; historically tried zoloft without improvement. Has not been on this since 2020. Essential hypertension No pertinent past medical history neghx: dm,thyroid,dvt/pe PCP: Mata Fisher depression (vaginal after ) Asthma GERD (gastroesophageal reflux disease) Surgical History Hx successful (vaginal after ), currently History of tonsillectomy and adenoidectomy (~2013) History of section, low transverse (11/20/18) PLTCS. Dx: Nonreassuring FHT. Performed by Dr. Bustillo at [facility]. Family History Father Hypertension Diabetes Hyperlipidemia Grandmother Diabetes paternal Denies family history of Colon cancer Ovarian cancer Heart disease Breast cancer Uterine cancer Thyroid disease Stroke Social History Smoking and tobacco/nicotine status: former use of tobacco/nicotine Physical Exam 2 Const: COMMON NORMALS: no acute distress GENERAL APPEARANCE: cooperative and comfortable ORIENTATION/CONSCIOUSNESS: Yes awake, Yes oriented to person, Yes oriented to place and Yes oriented to time HENMT: COMMON NORMALS: normocephalic, atraumatic and hearing grossly normal bilaterally HEAD & SCALP: normocephalic and atraumatic Resp: COMMON NORMALS: normal respiratory effort, No retractions, No use of accessory muscles and clear to auscultation bilaterally AUSCULTATION: clear to auscultation bilaterally Cardio: COMMON NORMALS: regular rate, regular rhythm and No murmurs present (Cardio) RATE: regular rate RHYTHM: regular rhythm GI: COMMON NORMALS: Soft to palpation and No hepatosplenomegaly present A USCULTATION: Yes normoactive bowel sounds PALPATION: Yes Soft to palpation, No Tenderness to palpation present (GI), No Guarding due to palpation present (GI) and Yes No hepatosplenomegaly present Extremity: COMMON NORMALS: normal to inspection, capillary refill normal, no clubbing, cyanosis or edema, no calf tenderness and no pedal edema Neuro: SENSORIUM/ORIENTATION: Yes oriented to person, Yes oriented to place and Yes oriented to time Skin: COMMON NORMALS: no rashes or lesions noted GENERAL SKIN EXAM: no rashes or lesions noted Course 2 Vital Signs: Vital signs: Vital Signs Temperature 98.2 F 03/01/25 07:01 Pulse Rate 81 03/01/25 09:24 Respiratory Rate 18 03/01/25 09:17 Blood Pressure 152/98 03/01/25 09:24 Pulse Oximetry 97 03/01/25 09:24 Oxygen Delivery Me thod Room Air 03/01/25 09:18 MDM - General Adult Medical Decision Making Shoaib elevation blood pressure elevation, microalbumin also elevated. No thrombocytopenia patient has anemia consistent with a recent do not have a recent hemoglobin for comparison liver functions not elevated uric acid is normal magnesium normal. Discussed with Dr. Bull he recommends observation. Patient has received hydralazine 10 mg twice. We did not give any labetalol as her heart rate was already in the 60s when she first arrived. Give her oral lisinopril. She is reports an allergy to calcium channel blockers. Will place her in observation with hospitalist consult Dr. Bull orders written. Medical Records I reviewed the patient's medical records. Lab Data I reviewed the patient's lab results. 03/01/25 07:11 03/01/25 07:11 Laboratory Results WBC 8.66 10^3/uL (3.29-11.43) 03/01/25 07:11 RBC 4.40 10^6/uL (3.85-5.65) 03/01/25 07:11 Hgb 10.70 g/dL (11.27-16.99) L 03/01/25 07:11 Hct 34.1 % (36-47) L 03/01/25 07:11 MCV 77.5 fl (85-98) L 03/01/25 07:11 MCH 24.3 pg (27-33) L 03/01/25 07:11 MCHC 31.4 g/dL (30-55) 03/01/25 07:11 RDW 14.0 % (12.1-15.1) 03/01/25 07:11 Plt Count 206 10^3/cmm (157-399) 03/01/25 07:11 MPV 11.2 fL (7.4-10.4) H 03/01/25 07:11 Neut % (Auto) 69.6 % 03/01/25 07:11 Lymph % (Auto) 21.4 % 03/01/25 07:11 [place] % (Auto) 6.2 % 03/01/25 07:11 Eos % (Auto) 1.3 % 03/01/25 07:11 Baso % (Auto) 0.3 % 03/01/25 07:11 Neut # (Auto) 6.03 10^3/uL (1.8-7.7) 03/01/25 07:11 Lymph # (Auto) 1.9 10^3/uL (0.8-4.8) 03/01/25 07:11 [place] # (Auto) 0.5 10^3/uL (0.2-0.9) 03/01/25 07:11 Eos # (Auto) 0.1 10^3/uL (0.0-0.8) 03/01/25 07:11 Baso # (Auto) 0.0 10^3/uL (0.0-0.1) 03/01/25 07:11 Nucleated RBC % (auto) 0 % 03/01/25 07:11 Nucleated RBCs # 0.0 /100WBC 03/01/25 07:11 Sodium 142 mmol/L (136-145) 03/01/25 07:11 Potassium 4.1 mmol/L (3.5-5.1) 03/01/25 07:11 Chloride 104 mmol/L (98-107) 03/01/25 07:11 Carbon Dioxide 25 mmol/L (22-29) 03/01/25 07:11 Anion Gap 17.1 (5-19) 03/01/25 07:11 BUN 10 mg/dL (6-20) 03/01/25 07:11 Creatinine 0.6 mg/dL (0.5-0.9) 03/01/25 07:11 GFR Calculation 118.2 mL/min (90-130) 03/01/25 07:11 Glucose 121 mg/dL (65-115) H 03/01/25 07:11 Calculated Osmolality 294 mOsm/kg (285-295) 03/01/25 07:11 Uric Acid 4.9 mg/dL (2.4-5.7) 03/01/25 07:11 Calcium 9.6 mg/dL (8.5-10.5) 03/01/25 07:11 Magnesium 1.8 mg/dL (1.7-2.3) 03/01/25 07:11 Total Bilirubin 0.2 mg/dL (0.15-1.2) 03/01/25 07:11 AST 11 U/L (0-32) 03/01/25 07:11 ALT 11 U/L (0-33) 03/01/25 07:11 Alkaline Phosphatase 87 U/L (35-105) 03/01/25 07:11 Lactate Dehydrogenase 207 U/L (135-214) 03/01/25 07:11 Total Protein 7.0 g/dL (6.6-8.7) 03/01/25 07:11 Albumin 4.0 g/dL (3.5-5.2) 03/01/25 07:11 Globulin 3.0 g/dL (1.3-4.6) 03/01/25 07:11 Urine Color Yellow (Yellow) 03/01/25 07:11 Urine Appearance Clear (CLEAR) 03/01/25 07:11 Urine pH 8 (5-7) A 03/01/25 07:11 Ur Specific [place] 1.005 (1.005-1.030) 03/01/25 07: Urine Protein Neg (Negative) 03/01/25 07:11 Urine Glucose (UA) Norm (Normal) 03/01/25 07:11 Urine Ketones Negative (Negative) 03/01/25 07:11 Urine Blood 3+ (Negative) H 03/01/25 07:11 Urine Nitrate Negative (Negative) 03/01/25 07:11 Urine Bilirubin Neg (Negative) 03/01/25 07:11 Urine Urobilinogen Neg mg/dL (Negative) 03/01/25 07:11 Ur Leukocyte Esterase Negative (Negative) 03/01/25 07:11 Urine RBC 5-10 /hpf (0-2) H 03/01/25 07:11 Urine WBC 0-4 /hpf (0-5) H 03/01/25 07:11 Ur Squamous Epith Cells 0-4 /hpf (0-5) H 03/01/25 07:11 Amorphous Sediment Not Reportable 03/01/25 07:11 Urine Bacteria Trace /hpf (NONE) 03/01/25 07:11 Ur Random Microalbumin 2 ug/dL (0-20) 03/01/25 07:11 Urine Creatinine 10 mg/dL (28-217) L 03/01/25 07:11 Microalb/Creat Ratio 200 mg/dL (0-20) H 03/01/25 07:11 No radiology studies performed this visit EKG Data EKG 1: I personally reviewed and interpreted this EKG as follows: EKG interpretation date: 03/01/25 Prior EKG tracings: available for review Interpretation: EKG 03/01/2025 7:04 AM sinus rhythm rate of 63. [place] 148 QTc [address] changes no significant abnormality compared to EKG from 12/09/2023 no change Discharge Plan Discharge Patient Disposition: Placed in Observation Admit Provider: Phoenix Presley Clinical Impression: Accelerated hypertension, History of section, low transverse, Proteinuria Coding Level of Care Code ED Meat Specialist for Chg Dayanara
[2025-03-01] MEDS: hyDRALAzine 20 mg/mL INJ 1 mL 10 MG IVP ×2 (07:21→08:05)
[2025-03-01 07:30] LABS: Hematocrit 34.1 % (36-47); Hemoglobin 10.70 g/dL (11.27-16.99); Mean Corpuscular HGB Conc 31.4 g/dL (30-55); Mean Corpuscular Hemoglobin 24.3 pg (27-33); Mean Corpuscular Volume 77.5 fl (85-98); Nucleated Red Blood Cells % 0 %; Platelet Count 206 10^3/cmm (157-399); Red Blood Count 4.40 10^6/uL (3.85-5.65); White Blood Count 8.66 10^3/uL (3.29-11.43)
[2025-03-01 07:35] LABS: Alanine Aminotransferase 11 U/L (0-33); Albumin Level 4.0 g/dL (3.5-5.2); Alkaline Phosphatase 87 U/L (35-105); Anion Gap 17.1 (5-19); Aspartate Amino Transferase 11 U/L (0-32); Blood Urea Nitrogen 10 mg/dL (6-20); Calcium 9.6 mg/dL (8.5-10.5); Carbon Dioxide 25 mmol/L (22-29); Chloride 104 mmol/L (98-107); Creatinine Clr Calc Pharmacy 153.9460; Globulin 3.0 g/dL (1.3-4.6); Glucose 121 mg/dL (65-115); Osmolality Calculated 294 mOsm/kg (285-295); Potassium 4.1 mmol/L (3.5-5.1); Sodium 142 mmol/L (136-145); Total Protein 7.0 g/dL (6.6-8.7)
[2025-03-01 07:53] LABS: Add Urine Microscopic? YES; Glucose Urine UA Norm (Normal); Nitrate Urine Negative (Negative); Specific Gravity, Urine 1.005 (1.005-1.030); UA Manual Slide Review YES
[2025-03-01 07:57] LABS: Magnesium 1.8 mg/dL (1.7-2.3); Uric Acid 4.9 mg/dL (2.4-5.7)
[2025-03-01 08:06] LABS: Creatinine Urine, Random 10 mg/dL (28-217)
[2025-03-01 08:09] LABS: Microalbum Creatinine Ratio Ur 200 mg/dL (0-20)
[2025-03-01] MEDS: morphine 4 mg/mL SDV 1 mL 2 MG IVP (09:17)
--- NOTE | 2025-03-01 09:31 | PC.PHAR ---
patient states she was taking Oxy codien 8mg when she was at the hospital in [place] . Last dose was morning 02/27/25 .
[2025-03-01 10:06] LABS: PCP Screen Urine Negative (Negative)
[2025-03-01 10:10] LABS: Iron 28 ug/dL (37-145); Total Iron Binding Capacity 414 mcg/dl; Unsaturated Iron Binding 386 ug/dL (112-347)
[2025-03-01] MEDS: oxyCODONE 5 mg IR Tab/Cap PO (13:04)
--- NOTE | 2025-03-01 15:31 | P.HP_ITS ---
Providers/Chief Complaint 2 Admitting Physician: Phoenix Presley MD Primary Care Provider: RAYMOND Xie Chief Complaint: high bp (sent by ferny) (5xpostop) History of Present Illness Barbie August is a 30 year old female with recent delivery of a 28- week gestation boy named Piter born at 1 pound 15 ounces now in [facility] in the NICU. He was initially intubated but now off the ventilator and only on CPAP. The patient was sent in by Dr. Bull and seen by Dr. Diehl. Patient is admitted to observation for possible preeclampsia with hypertension, headache 10/29 and elevated microalbumin to creatinine ratio but a normal microalbumin. Urine did not show proteinuria when it did show intermittent trace 1+ and 2+ as well as negative studies for urine proteinuria earlier in the . Patient has had 9 pregnancies for early miscarriages that did not require D&C or delivery of products of conception. She has had 5 living children counting most recent delivery 5 days ago for low amniotic fluid index and intrauterine growth retardation. Patient states her second child was born technically premature at age 36 weeks but was 8 pounds went home and breast-fed. Most recent delivery she is not going to breast-feed because he is in the NICU and tiny at 1 pound 15 ounces. The patient does not intend to have anymore pregnancies and intends to get out of tubal ligation. She states that she was intending to have 1 this but it became complicated. Review of Systems 2 Narrative: General No fevers chills Cardiovascular no chest pain palpitations leg edema Respiratory no shortness of breath cough wheezing GI no nausea vomiting diarrhea constipation. Patient has history of GERD takes Protonix she had on Monday and is currently having some mild discharge from the vagina she deems it is normal. 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 Neuro vision is okay but she has had headaches 10/29 when she typically does not have headaches and she states her eyes hurt but she denies photophobia Heme no history of blood clots in legs or lungs Malignancy history negative Medications/Allergies Home Medications ?Medication ?Instructions ?Recorded ?Confirmed ?Last Taken ?Type acetaminophen 500 mg tablet 500 mg PO QID PRN Fever Or Pain 03/01/25 03/01/25 02/28/25 History (Tylenol Extra Strength) ibuprofen 200 mg tablet (Advil) 800 mg PO Q6H PRN Feve r Or Pain 03/01/25 03/01/25 02/28/25 History pantoprazole 40 mg tablet,delayed 40 mg PO BID 5 03/01/25 02/28/25 History release Allergies Allergy/AdvReac Type Severity Reaction Status Date / Time iodine Allergy Severe ALGY-Anaphy Verified 02/24/25 20:11 laxis Penicillins Allergy Mild ALGY-Hives Verified 02/24/25 20:11 cefdinir Allergy ADR-Vomitin Verified 02/24/25 20:11 g metoclopramide (From Reglan) Allergy ADR-Agitate Verified 02/24/25 20:11 d nifedipine AdvReac rash, Verified 02/24/25 20:11 tachycardia, sob PFSH Acute 2 PFSH: Medical History (Updated 03/01/25 @ 15:42 by Phoenix Presley MD) Anxiety managed w/o medication; historically tried zoloft without improvement. Has not been on this since 2020. Essential hypertension No pertinent past medical history neghx: dm,thyroid,dvt/pe PCP: Mata Fisher depression (vaginal after ) Asthma GERD (gastroesophageal reflux disease) Surgical History (Updated 03/01/25 @ 09:36 by Ender Diehl DO) Hx successful (vaginal after ), currently History of tonsillectomy and adenoidectomy (~2013) History of section, low transverse (11/20/18) PLTCS. Dx: Nonreassuring FHT. Performed by Dr. Bustillo at [facility] [place]. Family History Father Hypertension Diabetes Hyperlipidemia Grandmother Diabetes paternal Denies family history of Colon cancer Ovarian cancer Heart disease Breast cancer Uterine cancer Thyroid disease Stroke Social History (Updated 03/01/25 @ 15:40 by Phoenix Presley MD) Smoking and tobacco/nicotine status: former use of tobacco/nicotine Alcohol intake: never Substance/Drug Use: never Additional social history: Patient wants full CODE STATUS as discussed with Phoenix Presley MD on 03/01/2025. 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 [employer] Vitals/I&O/Wt Last Vital Signs Temp 98.2 F 03/01/25 07:01 Pulse 61 03/01/25 12:00 Resp 15 03/01/25 13:04 BP 142/83 03/01/25 13:05 Pulse Ox 92 03/01/25 13:04 O2 Del Method Room Air 03/01/25 10:02 03/01/25 03/01/25 03/01/25 06:59 14:59 22:59 Intake Total 360 / 360 Balance 360 / 360 Weight last 48 hrs Weight 90.718 kg Physical Exam 2 Narrative: General Well-developed moderately overweight female in no acute cardiopulmonary distress she is watching TV comfortably CV regular rate and rhythm Lungs clear to auscultation bilaterally Abdomen positive bowel tones soft nontender there is a low horizontal incisional's wound underneath the dressing no active discharge Calves no tenderness cords pretibial edema Neuro patient's speech is clear pupils equally round and reactive to light accommodation external ocular movements intact motor strength 5/5 bilateral handgrips biceps triceps. Oropharynx edentulous Mallampati 1 Data 03/01/25 07:11 03/01/25 07:11 A&P Assessment and plan 1. Accelerated hypertension: Patient is admitted and not nor lactating. She has no intention to lactate or to get again. For that reason she is treated with initially lisinopril in the emergency department and then additional losartan 50 mg once and then daily. I am going to add amlodipine 5 mg now and daily. There is minimal or no proteinuria and actually microalbumin also low normal but because her urine creatinine was so low the microalbumin to creatinine ratio is high. I do not think this is actual preeclampsia. Repeat UA. Magnesium is low normal side and will get 2 mg IV x 1 2. Headache: Will check BMP again and potentially can dose Toradol if creatinine still normal. Morphine for pain for now Plan: Due to my lack of practice diagnosis and treating preeclampsia I spent additional time reviewing patient's case and up-to-date for treatment with total of greater than 70 minutes. I am told that Dr. Bull will be consulting as well PDMP PDMP Reviewed: Not Reviewed Attestations 2 Medical Necessity Statement*: Patient is placed under observation hospital for treatment of accelerated hypertension and monitoring for possible preeclampsia Coding Level of Care Code 57577 Diagnoses Accelerated hypertension I10 Headache R51.9 Time Spent (min) 70
[2025-03-01] MEDS: iron sucrose 200 MG in sodium chloride 0.9% (100 ml) 100 ML 220 MG IV (16:06)
[2025-03-01 16:34] LABS: Anion Gap 18.9 (5-19); Blood Urea Nitrogen 8 mg/dL (6-20); Calcium 9.4 mg/dL (8.5-10.5); Carbon Dioxide 22 mmol/L (22-29); Chloride 104 mmol/L (98-107); Creatinine Clr Calc Pharmacy 230.9190; Glucose 87 mg/dL (65-115); Magnesium 1.7 mg/dL (1.7-2.3); Osmolality Calculated 290 mOsm/kg (285-295); Potassium 3.9 mmol/L (3.5-5.1); Sodium 141 mmol/L (136-145)
[2025-03-01 16:34] LABS: Add Urine Microscopic? YES; Glucose Urine UA Norm (Normal); Nitrate Urine Negative (Negative); Specific Gravity, Urine 1.005 (1.005-1.030); UA Manual Slide Review YES
[2025-03-01] MEDS: ondansetron 2 mg/ML SDV 2 mL 4 MG IVP (17:10)
[2025-03-01] MEDS: magnesium sulfate premix 2 GM/50 ML PIGGYBACK IV (17:10)
[2025-03-02 03:33] LABS: Anion Gap 15.9 (5-19); Blood Urea Nitrogen 11 mg/dL (6-20); Calcium 9.0 mg/dL (8.5-10.5); Carbon Dioxide 24 mmol/L (22-29); Chloride 106 mmol/L (98-107); Creatinine Clr Calc Pharmacy 153.9460; Glucose 91 mg/dL (65-115); Osmolality Calculated 293 mOsm/kg (285-295); Potassium 3.9 mmol/L (3.5-5.1); Sodium 142 mmol/L (136-145); Thyroid Stimulating Hormone 1.62 uIU/mL (0.27-4.20)
[2025-03-02 03:54] VITALS: BP 130/77; PULSE 78; RESP 22; TEMP 36.4
[2025-03-02 04:42] VITALS: BP 133/89
[2025-03-02 04:44] VITALS: RESP 22; O2SAT 97
[2025-03-02] MEDS: oxyCODONE 5 mg IR Tab/Cap PO (04:44)
[2025-03-02 05:43] VITALS: BMI 32.9
[2025-03-02 05:56] VITALS: PULSE 76
[2025-03-02 08:00] VITALS: BP 134/87; PULSE 64; RESP 16; TEMP 36.7; O2SAT 97
--- NOTE | 2025-03-02 08:01 | P.DS_ITS ---
Discharge Providers Date of Admission: 03/01/25 08:57 Date of Discharge: March 02, 2025 Attending Provider at Admission: Phoenix Presley MD Attending Provider at Discharge: Phoenix Presley MD Primary Care Provider: RAYMOND Xie Diagnoses at Discharge Discharge Diagnosis 1. Accelerated hypertension: 2. Headache: Reason for Visit Reason for Visit: high bp (sent by ferny) (5xpostop) Brief History: The patient was sent in by Dr. Bull and seen by Dr. Diehl. Patient is admitted to observation for possible preeclampsia with hypertension, headache 6/10 and elevated microalbumin to creatinine ratio but a normal microalbumin. Urine did not show proteinuria when it did show intermittent trace 1+ and 2+ as well as negative studies for urine proteinuria earlier in the . Patient has had 9 pregnancies for early miscarriages that did not require D&C or delivery of products of conception. She has had 5 living children counting most recent delivery 5 days ago for low amniotic fluid index and intrauterine growth retardation. Patient states her second child was born technically premature at age 36 weeks but was 8 pounds went home and breast-fed. Most recent delivery she is not going to breast-feed because he is in the NICU and tiny at 1 pound 15 ounces. The patient does not intend to have anymore pregnancies and intends to get out of tubal ligation. She states that she was intending to have 1 this but it became complicated. Hospital Course Hospital Course Patient's hypertension and headache was worrisome for preeclampsia so patient was sent in through the emergency department and placed on observation. Her urine protein remained negative completely. Patient's microalbumin was very low at 2 but urine creatinine was even lower at 10 so the ratio was 200 mg/dL. Because of this elevation patient was observed in the hospital but her urine protein remained negative. Blood pressure is well-controlled and headache has decreased down to 1/10. Patient confirms that she does not plan to breast-feed Physical Exam Narrative: General Well-developed moderately overweight female in no acute cardiopulmonary distress she is watching TV comfortably CV regular rate and rhythm Lungs clear to auscultation bilaterally Abdomen positive bowel tones soft nontender there is a low horizontal incisional's wound underneath the dressing no active discharge Calves no tenderness cords pretibial edema Neuro patient's speech is clear moves all extremities symmetrically Oropharynx edentulous Mallampati 1 Discharge Data Studies Completed and Pending Laboratory Results WBC 8.66 10^3/uL (3.29-11.43) 03/01/25 07:11 RBC 4.40 10^6/uL (3.85-5.65) 03/01/25 07:11 Hgb 10.70 g/dL (11.27-16.99) L 03/01/25 07:11 Hct 34.1 % (36-47) L 03/01/25 07:11 MCV 77.5 fl (85-98) L 03/01/25 07:11 MCH 24.3 pg (27-33) L 03/01/25 07:11 MCHC 31.4 g/dL (30-55) 03/01/25 07:11 RDW 14.0 % (12.1-15.1) 03/01/25 07:11 Plt Count 206 10^3/cmm (157-399) 03/01/25 07:11 MPV 11.2 fL (7.4-10.4) H 03/01/25 07:11 Neut % (Auto) 69.6 % 03/01/25 07:11 Lymph % (Auto) 21.4 % 03/01/25 07:11 [place] % (Auto) 6.2 % 03/01/25 07:11 Eos % (Auto) 1.3 % 03/01/25 07:11 Baso % (Auto) 0.3 % 03/01/25 07:11 Neut # (Auto) 6.03 10^3/uL (1.8-7.7) 03/01/25 07:11 Lymph # (Auto) 1.9 10^3/uL (0.8-4.8) 03/01/25 07:11 [place] # (Auto) 0.5 10^3/uL (0.2-0.9) 03/01/25 07:11 Eos # (Auto) 0.1 10^3/uL (0.0-0.8) 03/01/25 07:11 Baso # (Auto) 0.0 10^3/uL (0.0-0.1) 03/01/25 07:11 Nucleated RBC % (auto) 0 % 03/01/25 07:11 Nucleated RBCs # 0.0 /100WBC 03/01/25 07:11 Sodium 142 mmol/L (136-145) 03/02/25 02:18 Potassium 3.9 mmol/L (3.5-5.1) 03/02/25 02:18 Chloride 106 mmol/L (98-107) 03/02/25 02:18 Carbon Dioxide 24 mmol/L (22-29) 03/02/25 02:18 Anion Gap 15.9 (5-19) 03/02/25 02:18 BUN 11 mg/dL (6-20) 03/02/25 02:18 Creatinine 0.6 mg/dL (0.5-0.9) 03/02/25 02:18 GFR Calculation 118.2 mL/min (90-130) 03/02/25 02:18 Glucose 91 mg/dL (65-115) 03/02/25 02:18 Calculated Osmolality 293 mOsm/kg (285-295) 03/02/25 02:18 Uric Acid 4.9 mg/dL (2.4-5.7) 03/01/25 07:11 Calcium 9.0 mg/dL (8.5-10.5) 03/02/25 02:18 Magnesium 1.7 mg/dL (1.7-2.3) 03/01/25 16:07 Iron 28 ug/dL (37-145) L 03/01/25 07:11 TIBC 414 mcg/dl 03/01/25 07:11 % Saturation 6.7 % (20-50) L 03/01/25 07:11 Unsat Iron Binding 386 ug/dL (112-347) H 03/01/25 07:11 Total Bilirubin 0.2 mg/dL (0.15-1.2) 03/01/25 07:11 AST 11 U/L (0-32) 03/01/25 07:11 ALT 11 U/L (0-33) 03/01/25 07:11 Alkaline Phosphatase 87 U/L (35-105) 03/01/25 07:11 Lactate Dehydrogenase 207 U/L (135-214) 03/01/25 07:11 Total Protein 7.0 g/dL (6.6-8.7) 03/01/25 07:11 Albumin 4.0 g/dL (3.5-5.2) 03/01/25 07:11 Globulin 3.0 g/dL (1.3-4.6) 03/01/25 07:11 TSH 1.62 uIU/mL (0.27-4.20) 03/02/25 02:18 Urine Color Yellow (Yellow) 03/01/25 16:00 Urine Appearance Cloudy (CLEAR) A 03/01/25 16:00 Urine pH 8 (5-7) A 03/01/25 16:00 Ur Specific [place] 1.005 (1.005-1.030) 03/01/25 16:00 Urine Protein Neg (Negative) 03/01/25 16:00 Urine Glucose (UA) Norm (Normal) 03/01/25 16:00 Urine Ketones Negative (Negative) 03/01/25 16:00 Urine Blood 3+ (Negative) H 03/01/25 16:00 Urine Nitrate Negative (Negative) 03/01/25 16:00 Urine Bilirubin Neg (Negative) 03/01/25 16:00 Urine Urobilinogen Neg mg/dL (Negative) 03/01/25 16:00 Ur Leukocyte Esterase Negative (Negative) 03/01/25 16:00 Urine RBC 10-15 /hpf (0-2) H 03/01/25 16:00 Urine WBC 0-4 /hpf (0-5) H 03/01/25 16:00 Ur Squamous Epith Cells 5-10 /hpf (0-5) H 03/01/25 16:00 Amorphous Sediment Not Reportable 03/01/25 16:00 Urine Bacteria Trace /hpf (NONE) 03/01/25 16:00 Ur Random Microalbumin 2 ug/dL (0-20) 03/01/25 07:11 Urine Creatinine 10 mg/dL (28-217) L 03/01/25 07:11 Microalb/Creat Ratio 200 mg/dL (0-20) H 03/01/25 07:11 Urine Opiates Screen Negative ng/mL (Negative) 03/01/25 07:11 Ur Barbiturates Screen Negative ng/mL (Negative) 03/01/25 07:11 Ur Phencyclidine Scrn Negative ng/mL (Negative) 03/01/25 07:11 Ur Amphetamines Screen Negative ng/mL (Negative) 03/01/25 07:11 U Benzodiazepines Scrn Negative ng/mL (Negative) 03/01/25 07:11 Urine Cocaine Screen Negative ng/mL (Negative) 03/01/25 07:11 U Marijuana (THC) Screen Negative ng/mL (Negative) 03/01/25 07:11 Vitals Last Vital Signs Temp 97.6 F 03/02/25 03:54 Pulse 76 03/02/25 05:56 Resp 22 H 03/02/25 04:44 BP 133/89 03/02/25 04:42 Pulse Ox 97 03/02/25 04:44 O2 Del Method Room Air 03/02/25 03:54 Discharge Plan Discharge Patient Disposition: Home Condition: Stable Prescriptions: New losartan 50 mg Tablet 50 mg PO DAILY Qty: 30 0RF labetalol 200 mg Tablet 100 mg PO BID Qty: 60 0RF Continued acetaminophen [Tylenol Extra Strength] 500 mg Tablet 500 mg PO QID PRN (Reason: Fever Or Pain) ibuprofen [Advil] 200 mg Tablet 800 mg PO Q6H PRN (Reason: Fever Or Pain) pantoprazole 40 mg tablet,delayed release (DR/EC) 40 mg PO BID Discharge Order = DC NOW: Discharge Order (Routine); Ordered 03/02/25 Ordered By: Phoenix Presley Referrals: Kristian Bull MD [Physician, UNEMPLOYMENT INSPECTOR] - 03/03/25 2:00 pm Clair Fisher FNP [Primary Care Provider, Family Practice] - 1 week Referral Note: They will call you with the follow up [place]. Discharge Diet: Low Salt Discharge Activity: Resume usual activity Patient Instructions: Labetalol (By mouth), Losartan (By mouth), Hypertension (GEN), Opioid Safety, Patient Portal & [place] Instructions Activity Restrictions/Additional Instructions: Take your blood pressure medications as prescribed Do not breast-feed because you are on losartan and we have established that your plan was not to breast-feed Return if worsened headache, nausea vomiting or visual changes Discharge Attestations Time Spent in Discharge Care*: greater than 30 min Quality Metrics Clinical Quality Measures [ No reported AMI, CVA or VTE this stay] Coding Level of Care Code 68617 Diagnoses Accelerated hypertension I10 Headache R51.9 Time Spent (min) 35
[2025-03-02 09:36] VITALS: BP 126/79; PULSE 78; O2SAT 95
== END 2025-03-02 09:45 | disposition home or self-care (01) ==
LOC: ER 09:25 → CSU 09:27
PROVIDERS: Admitting Provider Internal Medicine; Emergency Provider Family Medicine; PCP Registered Nurse; Visit Provider Internal Medicine
DX: I10 Essential (primary) hypertension (principal); R51.9 Headache, unspecified; K21.9 Gastro-esophageal reflux disease without esophagitis; F41.9 Anxiety disorder, unspecified; J45.909 Unspecified asthma, uncomplicated; O99.345 Other mental disorders complicating the puerperium; F53.0 Postpartum depression; Z87.891 Personal history of nicotine dependence
CPT/HCPCS: 36415; 80048; 80053; 80306; 81001; 82044; 83540; 83550; 83615; 83735; 84443; 84550; 85025; 93005; 96365; 96375; 96376; 99285; G0378; J0360; J1756; J2270; J2405; J3475; J9999

== ENCOUNTER → 2025-04-24 11:54 | Outpatient (BNVA) | payer BC, MEDICAID, SELFPAY | PROVIDERS: PCP Registered Nurse; Visit Provider Registered Nurse | DX: D64.9 Anemia, unspecified (principal) | CPT/HCPCS: 83550; 85025 ==

== ENCOUNTER 2025-05-02 13:26 | Outpatient (CLI) | payer BC, MEDICAID, SELFPAY ==
--- NOTE | 2025-05-02 13:30 | US_ITS ---
WS: [id number] THYROID ULTRASOUND HISTORY: E04.1 - Nontoxic single thyroid nodule COMPARISON: None available. Right lobe: 1.5 cm x 1.4 cm x 4.5 cm (w x ap x l). Volume: 4.6 cm3. Normal size and echotexture. No significant are dominant nodules are present. Left lobe: 1.9 cm x 1.7 cm x 5.5 cm (w x ap x l). Volume: 8.5 cm3. Normal sized gland. There is a hypoechoic nodule in the lower pole measuring 1.2 x 1.4 x 1.6 cm. This is a solid nodule with a few scattered cystic areas. This nodule is taller than it is wide. No echogenic focus. Flow artifact is noted in the LEFT jugular vein. Isthmus: 0.2 cm. US/US thyroid [id number] IMPRESSION: TI-RADS 5; mildly suspicious LEFT thyroid nodule. Ultrasound-guided FNA recomme nded.
== END 2025-05-02 13:27 | disposition home or self-care (01) ==
LOC: RAD 13:27
PROVIDERS: PCP Registered Nurse; Visit Provider Registered Nurse
DX: E04.1 Nontoxic single thyroid nodule (principal)
CPT/HCPCS: 76536

== ENCOUNTER 2025-05-21 10:36 | Oncology outpatient (recurring) (ONCR) | payer BC, MEDICAID, SELFPAY ==
--- NOTE | 2025-05-21 11:45 | US_ITS ---
WS: [id number] ULTRASOUND-GUIDED LEFT THYROID NODULE FNA HISTORY: E04.1 - Nontoxic single thyroid nodule Procedure, risks, and complications were explained to the patient. Consent has been obtained. Comparison: 05/02/2025 The skin is cleansed with ChloraPrep and anesthetized with 1% buffered lidocaine. FNA performed with 25 gauge needles. diagnostic technologist is present to fix slides. US/US biopsy/FNA thyroid [id number] IMPRESSION: Uncomplicated FNA of a LEFT thyroid nodule. Final pathology results pending.
== END 2025-05-21 23:59 | disposition home or self-care (01) ==
LOC: ONCMED 10:38
PROVIDERS: PCP Registered Nurse; Visit Provider Registered Nurse
DX: E04.1 Nontoxic single thyroid nodule (principal)
CPT/HCPCS: 10005; 88173